=== PATIENT | female | born 1980 ===

== ENCOUNTER → 2020-01-27 13:37 | Outpatient (BNVA) | payer MEDICAID, SELFPAY | PROVIDERS: PCP Nurse Practitioner Family; Visit Provider Surgery Vascular Surgery | DX: R60.9 Edema, unspecified (principal) | CPT/HCPCS: 99213 ==

== ENCOUNTER 2020-03-10 09:56 | Outpatient (REF) | payer MEDICAID, SELFPAY ==
--- NOTE | 2020-03-10 | US_ITS ---
EXAMINATION: US ABDOMEN COMPLETE CLINICAL INFORMATION: Other specified diseases of the liver. COMPARISON: CT abdomen 08/12/2008 TECHNIQUE: Real-time imaging of the abdominal viscera. FINDINGS: PANCREAS: The pancreas is homogeneous in echotexture and appears normal size. ABDOMINAL AORTA: The proximal, mid, and distal segments are normal in caliber. INFERIOR VENA CAVA: Visualized portions are normal. LIVER: The liver is normal in size. The liver contour is normal. Parenchymal echogenicity is normal. There are 3 echogenic lesions. 1. Left hepatic lobe lesion measures 0.9 x 0.9 x 1.0 cm. 2. Right hepatic lobe lesion measures 1.0 x 0.7 x 1.0 cm. 3. Right hepatic lobe lesion measures 1.0 x 0.8 x 0.9 cm. There is no intrahepatic biliary duct dilatation seen. GALLBLADDER: Normal. The gallbladder is physiologically distended without evidence of stones, sludge, polyps, wall thickening or pericholecystic fluid. COMMON BILE DUCT: Normal in caliber measuring 0.4 cm in diameter. RIGHT KIDNEY: Normal. No hydronephrosis. No renal calculi or focal parenchymal lesions. The kidney measures 10.9 cm in maximum dimension. LEFT KIDNEY: Normal. No hydronephrosis. No renal calculi or focal parenchymal lesions. The kidney measures 10.7 cm in maximum dimension. SPLEEN: Normal. The spleen measures 9.9 cm in maximum dimension. FREE FLUID: None. US/US abdomen complete IMPRESSION: Three echogenic liver lesions most likely hemangioma. The rest of the abdominal ultrasound is unremarkable.
[2020-03-10 11:38] LABS: MANUAL DIFF FLAG NO
[2020-03-10 11:46] LABS: Basophils Percent Auto 0.4 % (0-2); Eosinophils Absolute Auto 0.1 X10*3/uL (0.0-0.4); Hematocrit 44.1 % (37-47); Hemoglobin 14.3 g/dl (12.0-16.0); Imm Gran Abs Auto 0.03 X10*3/uL (0.00-0.03); Imm Gran Pct Auto 0.4 % (0.0-0.4); Lymphocytes Absolute Auto 2.4 X10*3/uL (1.2-4.9); Lymphocytes Percent Auto 33.9 % (20-40); Mean Corpuscular HGB Conc 32.4 g/dl (31.0-35.0); Mean Corpuscular Hemoglobin 30.9 pg (27.0-33.0); Mean Corpuscular Volume 95.2 fL (80-98); Mean Platelet Volume 10.2 fL (9.4-12.3); Monocytes Absolute Auto 0.6 X10*3/uL (0.1-1.2); Monocytes Percent Auto 8.7 % (2-11); Neutrophils Absolute Auto 3.8 X10*3/uL (2.0-8.3); Neutrophils Percent Auto 54.6 % (45-73); Platelet Count 269 X10*3/uL (160-400); Red Blood Count 4.63 X10*6/uL (4.20-5.50); Red Cell Distribution Width 12.7 % (11.0-16.0)
[2020-03-10 12:18] LABS: Alanine Aminotransferase 21 U/L (0-31); Albumin Level 3.8 g/dL (3.5-5.0); Alkaline Phosphatase 54 U/L (39-117); Anion Gap 10 (12-20); Aspartate Amino Transferase 13 U/L (5-31); Bilirubin Total 0.3 mg/dL (0.0-1.0); Blood Urea Nitrogen 11 mg/dL (9-16); C Reactive Protein 0.05 mg/dL (< or = 0.50); Calcium 8.9 mg/dL (8.4-10.2); Carbon Dioxide 27 mmol/L (22-29); Chloride 105 mmol/L (96-108); Estimated Glomerular Filt Rate > 60; Glucose Random 90 mg/dL (60-115); Potassium 4.4 mmol/l (3.3-5.1); Sodium 138 mmol/L (135-145); Total Protein 6.6 g/dL (6.5-8.0)
[2020-03-10 12:40] LABS: Erythrocyte Sedimentation Rate 3 MM/HR (0-20)
[2020-03-12 12:56] LABS: Antibody to SS-A Antigen <1.0 NEG AI (<1.0 NEG); Antibody to SS-B Antigen <1.0 NEG AI (<1.0 NEG)
== END 2020-03-10 09:57 | disposition home or self-care (01) ==
LOC: HO.US 09:56
PROVIDERS: Student in an Organized Health Care Education/Training Program; Visit Provider Registered Nurse
DX: R60.9 Edema, unspecified (principal); K76.89 Other specified diseases of liver
CPT/HCPCS: 36415; 76700; 80053; 85025; 85652; 86140; 86235

== ENCOUNTER → 2020-03-18 15:37 | Outpatient (BNVA) | payer MEDICAID, SELFPAY | PROVIDERS: PCP Registered Nurse; Referring Provider Nurse Practitioner Family; Visit Provider Anesthesiology | DX: M47.812 Spondylosis without myelopathy or radiculopathy, cervical region (principal); M25.519 Pain in unspecified shoulder; N62 Hypertrophy of breast | CPT/HCPCS: 99202 ==

== ENCOUNTER 2020-03-31 13:02 | Outpatient (REF) | payer MEDICAID, SELFPAY ==
--- NOTE | 2020-03-31 13:06 | MR_ITS ---
EXAMINATION: MR CERVICAL SPINE WITHOUT CONTRAST CLINICAL INFORMATION: Spondylosis without myelopathy or radiculopathy. COMPARISON: Cervical spine radiographs 05/20/2014. TECHNIQUE: MRI of the cervical spine was obtained using routine sequences without contrast. FINDINGS: Alignment is normal. Vertebral body heights are preserved. No acute bone marrow signal changes. There is/loss of intervertebral disc height and T2 signal intensity at C5-C6. Disc desiccation is demonstrated at multiple additional levels. There is no cord compression or abnormal intramedullary signal changes. The cervicomedullary junction is normal. Limited visualization of intracranial compartment reveals no abnormal finding. The occipital condyles and lateral C1 masses are intact. 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 C1-C2 articular facets are unremarkable. At C2-C3 the annular contour is normal. No canal or neuroforaminal compromise. At C3-C4 there is a slightly bulging disc. No canal stenosis. No mass effect on the traversing or foraminal nerve root. At C4-C5 the annular contour is normal. No canal or neuroforaminal compromise. At C5-C6 there is a diffusely bulging disc causing flattening of the ventral thecal sac. No canal stenosis. No mass effect on the traversing or foraminal nerve roots. At C6-C7 is annular contour is normal. No canal or neuroforaminal compromise. At C7-T1 the annular contour is normal. No canal or neuroforaminal compromise. Visualized soft tissues of the neck are unremarkable. MR/MR cervical spine wo con IMPRESSION: There is disc degeneration at levels of C3-C4 and C5-C6. No canal or neuroforaminal compromise. No cord compression or abnormal intramedullary signal changes.
== END 2020-03-31 13:03 | disposition home or self-care (01) ==
LOC: HO.MRI 13:02
PROVIDERS: Visit Provider Anesthesiology
DX: M47.812 Spondylosis without myelopathy or radiculopathy, cervical region (principal)
CPT/HCPCS: 72141

== ENCOUNTER → 2020-09-29 13:23 | Outpatient (BNVA) | payer MEDICAID, SELFPAY | PROVIDERS: PCP Registered Nurse; Visit Provider Student in an Organized Health Care Education/Training Program | DX: M47.812 Spondylosis without myelopathy or radiculopathy, cervical region (principal) | CPT/HCPCS: 99212 ==

== ENCOUNTER → 2020-11-09 08:22 | Outpatient (BNVA) | payer MEDICAID, SELFPAY | PROVIDERS: PCP Registered Nurse; Visit Provider Nurse Practitioner ==

== ENCOUNTER 2020-11-15 11:02 | Outpatient (REF) | payer MEDICAID, SELFPAY ==
[2020-11-15 11:37] LABS: MANUAL DIFF FLAG NO
[2020-11-15 11:51] LABS: Basophils Percent Auto 0.4 % (0-2); Eosinophils Absolute Auto 0.1 X10*3/uL (0.0-0.4); Eosinophils Percent Auto 0.9 % (0-4); Imm Gran Abs Auto 0.02 X10*3/uL (0.00-0.03); Imm Gran Pct Auto 0.3 % (0.0-0.4); Lymphocytes Absolute Auto 2.1 X10*3/uL (1.2-4.9); Lymphocytes Percent Auto 27.7 % (20-40); Mean Corpuscular HGB Conc 32.6 g/dl (31.0-35.0); Mean Corpuscular Volume 95.3 fL (80-98); Mean Platelet Volume 10.4 fL (9.4-12.3); Monocytes Absolute Auto 0.6 X10*3/uL (0.1-1.2); Monocytes Percent Auto 8.3 % (2-11); Neutrophils Absolute Auto 4.8 X10*3/uL (2.0-8.3); Neutrophils Percent Auto 62.4 % (45-73); Platelet Count 264 X10*3/uL (160-400); Red Blood Count 4.51 X10*6/uL (4.20-5.50); Red Cell Distribution Width 12.6 % (11.0-16.0); White Blood Count 7.7 X10*3/uL (4.8-10.8)
[2020-11-15 12:49] LABS: Ferritin 108 ng/mL (10-250); TSH reflex Free T4 1.39 uIU/mL (0.32-4.0)
[2020-11-15 13:12] LABS: Alanine Aminotransferase 14 U/L (0-31); Albumin Level 4.1 g/dL (3.5-5.0); Alkaline Phosphatase 55 U/L (39-117); Anion Gap 16 (12-20); Aspartate Amino Transferase 13 U/L (5-31); Bilirubin Total 0.5 mg/dL (0.0-1.0); Blood Urea Nitrogen 14 mg/dL (9-16); Calcium 9.4 mg/dL (8.4-10.2); Carbon Dioxide 22 mmol/L (22-29); Chloride 104 mmol/L (96-108); Estimated Glomerular Filt Rate > 60; Glucose Random 108 mg/dL (60-115); Potassium 4.5 mmol/L (3.3-5.1); Sodium 137 mmol/L (135-145)
== END 2020-11-15 11:03 | disposition home or self-care (01) ==
LOC: HO.LAB 11:02
PROVIDERS: Visit Provider Nurse Practitioner
DX: K76.89 Other specified diseases of liver (principal)
CPT/HCPCS: 36415; 80053; 82728; 84443; 85025

== ENCOUNTER → 2020-11-30 09:20 | Outpatient (BNVA) | payer MEDICAID, SELFPAY | PROVIDERS: PCP Registered Nurse; Visit Provider Nurse Practitioner ==

== ENCOUNTER 2020-12-28 12:41 | Outpatient (REF) | payer MEDICAID, SELFPAY | END 2020-12-28 12:42 | disposition home or self-care (01) | LOC: HO.LAB 12:41 | PROVIDERS: Visit Provider Internal Medicine | DX: Z20.822 Contact with and (suspected) exposure to COVID-19 (principal) | CPT/HCPCS: C9803; U0003; U0005 ==

== ENCOUNTER → 2021-01-14 08:26 | Outpatient (BNVA) | payer MEDICAID, SELFPAY | PROVIDERS: PCP Registered Nurse; Visit Provider Nurse Practitioner ==

== ENCOUNTER 2021-04-11 10:04 | Outpatient (REF) | payer MEDICAID, SELFPAY ==
--- NOTE | ~2021-04-11 | US_ITS ---
EXAMINATION: US ABDOMEN COMPLETE CLINICAL INFORMATION: Gastroesophageal reflux disease without esophagitis. COMPARISON: MRI abdomen 03/25/2020. Ultrasound abdomen complete 03/10/2020. CT abdomen 08/12/2008. TECHNIQUE: Real-time imaging of the abdominal viscera. FINDINGS: PANCREAS: Normal. ABDOMINAL AORTA: The proximal, mid, and distal segments are normal in caliber. INFERIOR VENA CAVA: Visualized portions are normal. LIVER: The liver is normal in size. The liver contour is normal. Parenchymal echogenicity is normal. 3 hyperechoic masses are seen within the liver, not significantly changed since the comparison study. The largest is in the left lobe measuring 0.9 x 1.0 x 1.0 cm, previously 1.0 x 0.7 x 1.0 cm. No abnormal vascularity. There is no intrahepatic biliary duct dilatation seen. GALLBLADDER: Normal. The gallbladder is physiologically distended without evidence of stones, sludge, polyps, wall thickening or pericholecystic fluid. COMMON BILE DUCT: Normal in caliber measuring 0.3 cm in diameter. RIGHT KIDNEY: Mildly prominent calyces within the lower pole of doubtful clinical significance. No dru hydronephrosis. No renal calculi or focal parenchymal lesions. The kidney measures 12.1 cm in maximum dimension. LEFT KIDNEY: Normal. No hydronephrosis. No renal calculi or focal parenchymal lesions. The kidney measures 11.2 cm in maximum dimension. SPLEEN: Normal. The spleen measures 10.8 cm in maximum dimension. FREE FLUID: None. US/US abdomen complete IMPRESSION: Hepatic hemangiomas are redemonstrated without significant interval change.
== END 2021-04-11 10:05 | disposition home or self-care (01) ==
LOC: HO.HMGCX 10:04
PROVIDERS: Visit Provider Nurse Practitioner
DX: K21.9 Gastro-esophageal reflux disease without esophagitis (principal)
CPT/HCPCS: 76700

== ENCOUNTER → 2021-08-30 09:24 | Outpatient (BNVA) | payer MEDICAID, SELFPAY | PROVIDERS: PCP Registered Nurse; Visit Provider Nurse Practitioner Family | DX: M47.812 Spondylosis without myelopathy or radiculopathy, cervical region (principal) | CPT/HCPCS: 99212 ==

== ENCOUNTER → 2021-09-15 10:59 | Outpatient (BNVA) | payer MEDICAID, SELFPAY | PROVIDERS: PCP Registered Nurse; Referring Provider Registered Nurse; Visit Provider Nurse Practitioner | DX: K21.9 Gastro-esophageal reflux disease without esophagitis (principal); K59.04 Chronic idiopathic constipation; K59.9 Functional intestinal disorder, unspecified; R10.9 Unspecified abdominal pain; R14.0 Abdominal distension (gaseous) | CPT/HCPCS: 99212 ==

== ENCOUNTER → 2021-10-13 10:57 | Outpatient (BNVA) | payer MEDICAID, SELFPAY | PROVIDERS: PCP Registered Nurse; Visit Provider Nurse Practitioner | DX: K59.04 Chronic idiopathic constipation (principal); K59.9 Functional intestinal disorder, unspecified; R10.9 Unspecified abdominal pain; K21.9 Gastro-esophageal reflux disease without esophagitis; R60.0 Localized edema; Z79.899 Other long term (current) drug therapy | CPT/HCPCS: 99212 ==

== ENCOUNTER 2021-10-19 14:28 | Outpatient (REF) | payer MEDICAID, SELFPAY ==
--- NOTE | ~2021-10-19 | XR_ITS ---
EXAMINATION: XR CERVICAL SPINE CLINICAL INFORMATION: Cervical radiculopathy COMPARISON: Previous x-ray May 2014 and MRI March 2020 TECHNIQUE: 6 views of the cervical spine, inclusive of bilateral oblique views, were obtained. FINDINGS: Bone alignment is normal. No fracture or dislocation is seen. There is degenerative spondylosis and mild disc space narrowing at C5-C6. Neural foramen are patent. Prevertebral soft tissues are normal. XR/XR cervical spine min 6V IMPRESSION: Degenerative changes at C5-C6.
[2021-10-19 15:28] LABS: C Reactive Protein 0.08 mg/dL (< or = 0.50); Rheumatoid Factor < 15.0 IU/mL (<15.0)
[2021-10-19 15:42] LABS: Erythrocyte Sedimentation Rate 2 MM/HR (0-20)
[2021-10-19 17:47] LABS: Thyroid Stimulating Hormone 1.85 uIU/mL (0.32-4.0)
== END 2021-10-19 14:29 | disposition home or self-care (01) ==
LOC: HO.XRAY 14:28
PROVIDERS: PCP Registered Nurse; Visit Provider Psychiatry & Neurology Neurology
DX: H91.90 Unspecified hearing loss, unspecified ear (principal); M79.7 Fibromyalgia; M54.12 Radiculopathy, cervical region
CPT/HCPCS: 36415; 72052; 84443; 84550; 85652; 86140; 86431

== ENCOUNTER → 2021-11-10 08:56 | Outpatient (BNVA) | payer MEDICAID, SELFPAY | PROVIDERS: Visit Provider Surgery Vascular Surgery | DX: G54.0 Brachial plexus disorders (principal) | CPT/HCPCS: 99212 ==

== ENCOUNTER 2021-12-29 10:11 | Outpatient (REF) | payer MEDICAID, SELFPAY ==
--- NOTE | ~2021-12-29 | XR_ITS ---
EXAMINATION: XR CHEST CLINICAL INFORMATION: Brachial plexus disorders COMPARISON: None TECHNIQUE: Frontal view of the chest was obtained. FINDINGS: The lungs are well-expanded and clear. The heart size and pulmonary vascularity is normal. There is solitary surgical milly in the right and left lower lobe probably in the breast region. No gross bony abnormality. XR/XR chest 1V IMPRESSION: Unremarkable chest examination.
== END 2021-12-29 10:12 | disposition home or self-care (01) ==
LOC: HO.XRAY 10:11
PROVIDERS: PCP Registered Nurse; Visit Provider Surgery Vascular Surgery
DX: G45.0 Vertebro-basilar artery syndrome (principal)
CPT/HCPCS: 71045

== ENCOUNTER 2022-01-24 10:20 | Outpatient (REF) | payer MEDICAID, SELFPAY ==
--- NOTE | ~2022-01-24 | MR_ITS ---
EXAMINATION: MR CERVICAL SPINE WITHOUT CONTRAST CLINICAL INFORMATION: 41-year-old with self-reported neck pain radiating to the upper extremities, right more than left. Radiculopathy, Chiari type I malformation. COMPARISON: 03/31/2020 MRI TECHNIQUE: MRI of the cervical spine was obtained using routine sequences without contrast. FINDINGS: Alignment: Normal. No spondylolisthesis. Craniocervical Junction/C1-C2 Articulations: Slight retrolisthesis of the left C1-C2 facet joint, stable in appearance. Atlantooccipital joints are intact and aligned. Visualized Intracranial Structures: The cerebellar tonsils project approximately 5 mm below the level of the plane of the foramen magnum. Given the appearance, the findings are more consistent with cerebellar tonsillar ectopia rather than a Chiari I malformation as there is no significant tonsillar pegging or cervicomedullary kinking. Otherwise unremarkable. Vertebral Bodies: Vertebral body heights are well maintained, stable in appearance. Disc Spaces and Endplates: There is alnm-or-unnpihaw disc volume loss at C5-C6, with disc desiccation, stable in appearance. Minor anterior marginal endplate spurring is noted at this level, stable in appearance. The remaining cervical intervertebral discs demonstrate normal height and signal with no significant spondylosis. Endplates appear intact. Bone Marrow: No significant marrow-replacing process or bone marrow edema. C2-C3: No disc herniation, DJD, canal or neural foraminal stenosis, stable in appearance. C3-C4: Small central disc protrusion with minimal indentation of the ventral thecal sac, stable in appearance, without cord impingement or canal stenosis. Minor facet spurring and left-sided uncinate process spurring, stable in appearance, with mild left-sided neural foraminal narrowing, unchanged. C4-C5: Normal disc contour. No disc herniation or canal stenosis. No significant DJD or neural foraminal stenosis. C5-C6: Broad-based disc protrusion noted, slightly asymmetric to the right, with [id number] flattening of the ventral dural sac without cord impingement, similar to previous exam, without significant canal stenosis. Mild uncovertebral spurring is noted bilaterally with mild right-sided neural foraminal stenosis, stable in appearance. C6-C7: No disc herniation or canal stenosis. Mild uncovertebral spurring noted on the left, stable in appearance, with minor left-sided foraminal narrowing, unchanged. C7-T1: No disc herniation or canal stenosis. No significant DJD or neural foraminal stenosis, stable in appearance. Spinal Cord: The cervical and visualized upper thoracic spinal cord is normal in morphology, caliber and signal intensity throughout. No interval change. Extracranial Soft Tissues: The visualized extracranial head/neck soft tissues are unremarkable within the limitations of the study. MR/MR cervical spine wo con IMPRESSION: 1. No convincing evidence for Chiari I malformation. 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 2. Disc protrusions at C3-C4 and C5-C6, similar to the previous exam, with discogenic degenerative changes at C5-C6, stable in appearance, without cord impingement or canal stenosis. 3. Minor degrees of multilevel DJD with mild right-sided neural foraminal stenosis at C5-C6, minimal left-sided foraminal stenosis at C6-C7 and mild left-sided neural foraminal stenosis at C3-C4 without neural impingement.
== END 2022-01-24 10:21 | disposition home or self-care (01) ==
LOC: HO.MRI 10:20
PROVIDERS: Visit Provider Psychiatry & Neurology Neurology
DX: M54.12 Radiculopathy, cervical region (principal); G93.5 Compression of brain
CPT/HCPCS: 72141

== ENCOUNTER → 2022-02-02 13:58 | Outpatient (BNVA) | payer MEDICAID, SELFPAY | PROVIDERS: PCP Registered Nurse; Visit Provider Surgery Vascular Surgery | DX: G54.0 Brachial plexus disorders (principal); N62 Hypertrophy of breast | CPT/HCPCS: 99212 ==

== ENCOUNTER → 2022-02-03 09:56 | Outpatient (BNVA) | payer MEDICAID, SELFPAY | PROVIDERS: PCP Registered Nurse; Referring Provider Registered Nurse; Visit Provider Nurse Practitioner | DX: K59.9 Functional intestinal disorder, unspecified (principal); R10.9 Unspecified abdominal pain; K21.9 Gastro-esophageal reflux disease without esophagitis; K59.04 Chronic idiopathic constipation; R14.0 Abdominal distension (gaseous); R60.0 Localized edema | CPT/HCPCS: 99212 ==

== ENCOUNTER 2022-03-16 09:48 | Outpatient (REF) | payer MEDICAID, SELFPAY | END 2022-03-16 09:49 | disposition home or self-care (01) | LOC: HO.LAB 09:48 | PROVIDERS: PCP Registered Nurse; Visit Provider Urology | DX: R39.15 Urgency of urination (principal); N39.41 Urge incontinence; R30.0 Dysuria | CPT/HCPCS: 51701; 51798; 87086; 99202 ==

== ENCOUNTER 2022-05-19 11:14 | Outpatient (REF) | payer MEDICAID, SELFPAY ==
--- NOTE | ~2022-05-19 | US_ITS ---
EXAMINATION: US RETROPERITONEAL LIMITED (RENAL ONLY) CLINICAL INFORMATION: Dysuria. COMPARISON: Ultrasound abdomen complete 04/11/2021 and 03/10/2020. MRI abdomen 03/25/2020. TECHNIQUE: Real-time imaging of the kidneys. FINDINGS: RIGHT KIDNEY: 12.0 x 4.7 x 5.7 cm (SAG x AP x TRV). The kidney is normal in size, contour, and echogenicity. Renal cortical thickness is normal. No calculi or focal parenchymal lesions. There is pelviectasis, without dru hydronephrosis. LEFT KIDNEY: 10.5 x 5.8 x 5.0 cm (SAG x AP x TRV). The kidney is normal in size, contour, and echogenicity. Renal cortical thickness is normal. No calculi or focal parenchymal lesions. No hydronephrosis. US/US renal BI IMPRESSION: 1. No renal mass or calculus is seen bilaterally. 2. There is right renal pelviectasis. No dru hydronephrosis is noted bilaterally.
== END 2022-05-19 11:15 | disposition home or self-care (01) ==
LOC: HO.US 11:14
PROVIDERS: Visit Provider Urology
DX: R30.0 Dysuria (principal); R39.15 Urgency of urination
CPT/HCPCS: 76775

== ENCOUNTER → 2022-08-30 09:11 | Outpatient (BNVA) | payer MEDICAID, SELFPAY | PROVIDERS: PCP Registered Nurse; Visit Provider Nurse Practitioner Family | DX: M47.812 Spondylosis without myelopathy or radiculopathy, cervical region (principal) | CPT/HCPCS: 99212 ==

== ENCOUNTER 2022-08-30 10:24 | Outpatient (REF) | payer MEDICAID, SELFPAY ==
[2022-08-30 13:43] LABS: Alanine Aminotransferase 17 U/L (0-31); Albumin Level 4.1 g/dL (3.5-5.0); Alkaline Phosphatase 53 U/L (39-117); Anion Gap 9 (12-20); Aspartate Amino Transferase 14 U/L (5-31); Bilirubin Total 0.6 mg/dL (0.0-1.0); Blood Urea Nitrogen 12 mg/dL (9-16); Calcium 9.2 mg/dL (8.4-10.2); Carbon Dioxide 27 mmol/L (22-29); Chloride 106 mmol/L (96-108); Estimated Glomerular Filt Rate > 60; Glucose Random 93 mg/dL (60-115); Potassium 4.3 mmol/L (3.3-5.1); Sodium 138 mmol/L (135-145); Total Protein 6.9 g/dL (6.5-8.0)
== END 2022-08-30 10:25 | disposition home or self-care (01) ==
LOC: HO.10HDL 10:24
PROVIDERS: Visit Provider Nurse Practitioner Family
DX: M47.812 Spondylosis without myelopathy or radiculopathy, cervical region (principal)
CPT/HCPCS: 36415; 80053

== ENCOUNTER 2022-09-06 10:00 | Outpatient (RCR) | payer MEDICAID, SELFPAY ==
--- NOTE | 2022-07-04 12:54 | MHC.PT.EP ---
[facility] [place] Office [place] Office [place] Office [address] Dennis Mckee [address] [phone] F: [phone] F: [phone] F: [phone] F: [phone] Physical Therapy Plan of Care Date of Evaluation: Date of Surgery: Diagnosis: urgency of urination urge incontinence Assessment: 42 y/o female referred to PT with urinary urgency and urge incontinence. Of note she has had a tummy tuck surgery and a bladder suspension surgery in 2017. She will have urinary frequency needing to urinate every 30minute with running water trigger. She started taking Mrybetric which has helped. She also reports REBECCA with coughing, sneezing, lifting, and any vigorous activity that requires abdominal activation. Educated pt on pelvic floor assessment. pelvic floor anatomy and function. She provided consent for pelvic floor assessment and will assess next visit. Examination shows abdominal/glut gripping patterns in sitting/standing, decreased back and lateral rib expansion during breathing. Next visit will assess pelvic floor and hip ROM/ strength. Pt will benefit from education, diet and lifestyle education, behavior training to help with urge incontinence, REBECCA, and PFM strengthening to help with muscular endurance. The patient is an excellent candidate for skilled PT. Frequency and Duration: The patient will be seen 1x/week for 10 weeks Short Term Goals: 1. Pt to be able to correctly activate her PFM to allow improved support to bowel and bladder. 2. Pt to be able to demonstrate diaphragmatic breathing to improve pressure exchange and intra abdominal load management. 3. Pt to be educated on behavior training to help decrease urge incontinence. 4. Pt will demonstrate knack with coughing Fci Goals: 1. Pt to be able to show improved PFM contraction during functional movements such as a bridge or squat to help prevent or limit POP. 2. Pt to reduce # of episodes of REBECCA during the day by 50% to help improve quality of life and reduce pad usage. 3. Pt to be independent with her final HEP for PFM in order to help maintain gains made in therapy. Treatment Plan: Modalities to reduce pain, spasms and effusion. Manual therapy to restore motion and function. Therapeutic exercise to improve strength and flexibility. Neuromuscular re-education for posture and balance. Therapeutic activities to return to functional activities of daily living. Electronically signed by: Please sign and return to therapist. Thank you for your referral.
--- NOTE | 2022-09-06 11:00 | MHC.PT.DC ---
[facility] [place] Office [place] Office [place] Office [address] Dennis Mckee [address] [phone] F: [phone] F: [phone] F: [phone] F: [phone] Physical Therapy Discharge Report Diagnosis: urgency of urination urge incontinence Date of Surgery: Date of Evaluation: 07/04/22 Date of Discharge: 09/06/22 Treatments to Date: 7 Cancellations to Date: 0 No Shows to Date: 0 Discharge Status: Achieved Goals Improved Function Independent with HEP Discharge Summary: Reports overall feeling better and is urinating less often especially during the day. At night, she will still have urgency and is trying to defer these urges. She is compliant with HEP and trying to walk more often. We reviewed all exercises and pt with good technique and appropriate abdominal contraction - relaxation without bulging now. Pt appropriate for d/c secondary to I with HEP, I with self management, and has met goals. Electronically signed by: Iza Booth PT Please sign and return to therapist. Thank you for your referral.
== END 2022-09-06 11:00 | disposition home or self-care (01) ==
LOC: HO.PT 10:00
PROVIDERS: PCP Registered Nurse; Visit Provider Urology
DX: R39.15 Urgency of urination (principal)
CPT/HCPCS: 97110; 97112; 97140; 97161

== ENCOUNTER 2022-09-06 10:56 | Outpatient (REF) | payer MEDICAID, SELFPAY | END 2022-09-06 10:57 | disposition home or self-care (01) | LOC: HO.LAB 10:56 | PROVIDERS: PCP Registered Nurse; Visit Provider Nurse Practitioner | DX: K21.9 Gastro-esophageal reflux disease without esophagitis (principal); K59.04 Chronic idiopathic constipation; K59.9 Functional intestinal disorder, unspecified; R19.7 Diarrhea, unspecified | CPT/HCPCS: 99212 ==

== ENCOUNTER 2022-09-12 | Outpatient (REF) | payer MEDICAID, SELFPAY | END 2022-09-12 00:01 | disposition home or self-care (01) | LOC: HO.LNP | PROVIDERS: Visit Provider Nurse Practitioner | DX: R19.7 Diarrhea, unspecified (principal) | CPT/HCPCS: 87177; 87209 ==

== ENCOUNTER 2023-04-18 13:43 | Outpatient (AMB) | payer MEDICAID, SELFPAY ==
--- NOTE | 2023-04-18 14:02 | A.OFFVIS_ITS ---
Intake Vital Signs 04/18/23 14:36 Height 5 ft 3 in Weight 201 lb 0.985 oz BMI 35.6 BP 125/78 Blood Pressure Location Lt brachial Position Sitting Intake Visit Reasons: Follow up GERD Intake Note: Patient presents to in office 6 months follow up visit for IBS, and GERD. CC: Patient reports that every time she has milk products, banana, and eggs she gets acid reflux and epigastric pain. She c/o abdominal bloating. Per patient she had Covid two weeks ago and was experiencing diarrhea, abdominal pain, heartburn, nausea,and a sore throat. Patient states she was found to have like a polyp in her throat . Patient would like to discuss EGD and colonoscopy. Emergency Medicine Physician Required: No Accompanied by: Self / Same As Patient Allergies divalproex sodium [From DEPAKOTE] Allergy (Unknown, Verified 04/18/23 14:44) FACIAL SWELLING, swelling of face pravastatin [PRAVASTATIN] Allergy (Unknown, Verified 04/18/23 14:44) MUSCLE ACHES, body aches 14-Count Warmer Allergy (Unknown, Uncoded 04/18/23 14:44) Unknown Pt states no food allergies Allergy (Unknown, Uncoded 02/14/23 13:37) Unkown HPI Follow up GERD HPI Details Assessment & Plan (1) GERD (gastroesophageal reflux diseas e): Code(s): K21.9 - Gastro-esophageal reflux disease without esophagitis Plan: SCOTTISH #Declines She continues to do well on her GI regimen. She continues using senna qhs and the LInzess in the am. With the simethicone and low dose Reglan 5 mg 3 times a day She had an episode of regrug that came up through her nose when bending over at work. We will wait and watch this, it could have been a one time thing. If this becomes more frequent we might want to consider studies for gastroparesis. She says she had parasites when she was a child and wants to be tested for these to see if this is causing any of her GI sx. Her other sx r/t possible chiari malformation continues and she will be going to [facility] to get a second opinion about this. ROV 6 mos. (2) Chronic idiopathic constipation: Code(s): K59.04 - Chronic idiopathic constipation (3) Small bowel motility disorder: Code(s): K59.9 - Functional intestinal disorder, unspecified (4) Diarrhea: Code(s): R19.7 - Diarrhea, unspecified Orders: Orders Ova and Parasite Today R19.7 - Diarrhea, unspecified Medications: Refilled dicyclomine 20 mg PO QID 30 d ays 120 tabs 6RF R10.9 - Unspecifie d abdominal pain linaclotide (Linze ss) 145 mcg PO QAM 30 caps 6RF K59.04 - Chronic i diopathic constipa tion, R14.0 - Abdo kiana distension ( gaseous) metoclopramide HCl (Reglan) PROVI EVANGELINA AWARE OR POSSI BLE INTERACTION WI TH SEROQUEL AND MO NITORING 5 mg PO .tidac 90 tabs 6RF K59.9 - Functional intestinal disord er, unspecified omeprazole 20 mg PO BID 30 d ays 60 caps 6RF K21.9 - Gastro-eso phageal reflux dis ease without esoph agitis sennosides (senna) 17.2 mg (2 x 8.6 m g) PO BEDTIME 90 d ays 180 caps 6RF c onstipation K59.04 - Chronic i diopathic constipa tion simethicone aft er meals 180 mg PO .TIDAC 30 days 90 caps 6R F K59.04 - Chronic i diopathic constipa tion, R14.0 - Abdo kiana distension ( gaseous) LABS: 09/13/22-[address]: ORDERED: Ova and Parasit Test Result Flag Refere nce Si te Ova Trichrome SEE NOTE QU M OVA AND PARASITES, CONC A ND PERM SMEAR Micro Number: [id number] Test Status: Final Specimen Sour e: Stool Specimen Quality : Adequate CONCENTRATION 1 : No ova or para sites seen TRICHROME 1: No ova or rosana ites seen CORRESPONDENCE On 03/30/23 @ 14:36 Jolynn Watt Wrote To Lopez,July (2) spoke to patient, she is requesting an appt with July- recently was seen by ENT for polyp in her throat. She would like to f/u with July , she is concerned she may also have polyps in her Esophageal and colon. I reached out to ENT -[phone] and requested her last office visit. TODAY'S VISIT SCOTTISH #declines She is having more GERD and this seems to be worse with higher fiber foods like oatmeal, broccoli, watermelon etc. The only change is that she had a bad case of COVID about 5 weeks ago and this caused a lot of diarrhea, N/V as well. She also has a large lump inside of her mouth/neck. She has a hx of tonsil stones, and her ENT suggested a tonsillectomy but she is reluctant to do this. She will be having a CT scan to look in to this. She wants and EGD/colonoscopy she had these in the remote past and had some erosive esophagitis 2011 and before. Since she will be 43 I will orde3r this. Will change from from omeprazole 20 mg twice a day to pantoprazole 40 mg and if she wants for now she can take 20 mg of omeprazole at night (however if we continue this way we likely will have to give her Pepcid at night because of insurance limitations). I am also going to increase her Reglan to 10 mg 3 times a day to see if gastric stasis is part of the problem relative to COVID inflammation. Return office visit in 6 weeks to evaluate her response. [facility] Medical History Rosacea Urge urinary incontinence Macromastia Shoulder pain Spondylosis of cervical spine Surgical History Status post laser ablation of incompetent vein History of bladder suspension procedure Family History Mother Colon polyps Social History Patient Tobacco Use Status: Never used Tobacco e-Cigarette/Vaping Use: Never Used Review of Systems Const Denies fatigue, Denies fever(s), Denies night sweats, Denies poor appetite and Denies weight loss ENT Reports Normal hearing present, Denies dental pain, Denies dysphagia, Denies hearing loss, Denies mouth pain, Denies odynophagia, Reports throat swelling, Denies tongue swelling and Reports other (Dentition adequate) Card Reports no additional complaints Resp Reports no additional complaints GI Denies abdominal pain, Reports belching, Denies melena, Denies bloating, Denies hematochezia, Reports constipation, Denies GI cramping, Denies dysphagia, Denies excessive flatus, Reports early satiety, Reports heartburn, Denies diarrhea, Denies nausea, Denies odynophagia, Denies vomiting and Denies hematemesis Skin/Breast Denies pruritus, Denies lesions, Denies rash and Denies jaundice Neuro Reports Normal hearing present and Denies Abnormal speech present Endo Denies fatigue Aller/Immun Reports throat swelling and Denies tongue swelling Physical Exam Vital Signs: Last Vital Signs BP 125/78 04/18/23 14:36 BMI result Body Mass Index 35.6 Const General: cooperative, no acute distress, well developed and well groomed Nutritional Appearance: well nourished and obese Orientation/consciousness: oriented to person, oriented to place and oriented to time Limitations: No language barrier HEENT Head: Yes normocephalic and Yes atraumatic Eyes General: appearance normal, both eyes and all related structures Pupils: Equal, round and reactive pupils present Neck Neck: Yes normal visual inspection and Yes no lymphadenopathy Thyroid: Thyroid normal Resp Effort & Inspection: normal respiratory effort and able to speak in complete sentences Auscultation: clear to auscultation bilaterally Cardio Rate: regular rate Rhythm: regular rhythm Heart sounds: Normal, physiologic split S2 sound present Peripheral pulses: radial pulses present and posterior tibial pulses present GI Inspection: No distended, Yes Abdominal panniculus present and Yes obesity Palpation (GI): Soft to palpation, nontender, no guarding, not rigid and No hepatosplenomegaly present Percussion: Yes normal to percussion Auscultation: normal bowel sounds Rectal Exam - Female: deferred Skin General skin exam: no rashes or lesions noted, turgor normal, skin not dry, no jaundice, No spider nevi and no striae Rashes: no rashes Nails: normal Neuro General: oriented to person, oriented to place and oriented to time Cranial nerves: Yes Equal, round and reactive pupils present and Yes Normal hearing present Speech: No Abnormal speech present Extrem General: Yes normal to inspection, No clubbing, No cyanosis and No edema Psych Appearance: grossly normal and well kempt Mental Status: mental status grossly normal Speech and movement: Normal speech and movement present Affect: normal affect Attitude: cooperative Thought process: Normal thought process present and not confabulating Thought content: Normal thought content present Insight: Limited insight present (Psych) Judgement: Limited judgement present (Psych) Assessment & Plan Assessment & Plan (1) Small bowel motility disorder: Code(s): K59.9 - Functional intestinal disorder, unspecified (2) GERD (gastroesophageal reflux disease): Code(s): K21.9 - Gastro-esophageal reflux disease without esophagitis (3) Chronic idiopathic constipation: Code(s): K59.04 - Chronic idiopathic constipation (4) Family history of polyps in the colon: Comment: mother Code(s): Z83.719 - Family history of colon polyps, unspecified Plan SCOTTISH #declines She is having more GERD and this seems to be worse with higher fiber foods like oatmeal, broccoli, watermelon etc. The only change is that she had a bad case of COVID about 5 weeks ago and this caused a lot of diarrhea, N/V as well. She also has a large lump inside of her mouth/neck. She has a hx of tonsil stones, and her ENT suggested a tonsillectomy but she is reluctant to do this. She will be having a CT scan to look in to this. She wants and EGD/colonoscopy she had these in the remote past and had some erosive esophagitis 2011 and before. Since she will be 43 I will orde3r this. Will change from from omeprazole 20 mg twice a day to pantoprazole 40 mg and if she wants for now she can take 20 mg of omeprazole at night (however if we continue this way we likely will have to give her Pepcid at night because of insurance limitations). I am also going to increase her Reglan to 10 mg 3 times a day to see if gastric stasis is part of the problem relative to COVID inflammation. Return office visit in 6 weeks to evaluate her response. Orders: Orders EGD/[place] Combo - GI Use Only 04/18/23 Z83.719 - Family history of colon polyps, unspecified Medications: New metoclopramide HCl (Reglan) 10 mg PO TID 90 tabs 6RF K59.9 - Functional intestinal disorder, unspecified pantoprazole (Protonix) 40 mg PO DAILY 30 tabs 3RF 30 days bisacodyl (Dulcolax (bisacodyl)) 10 mg (2 x 5 mg) PO BEDTIME 4 tabs 0RF 2 days peg 3350-electrolytes 236-22.74-6.74 -5.86 gram (Golytely) until fecal effluent is clear; do not exceed a total volume of 2,000 mL 240 mL PO Q10M 4,000 mL 0RF 1 day Z12.11 - Encounter for screening for malignant neoplasm of colon Refilled dicyclomine 20 mg PO QID 120 tabs 6RF 30 days R10.9 - Unspecified abdominal pain sennosides (senna) 17.2 mg (2 x 8.6 mg) PO BEDTIME 180 caps 6RF constipation 90 days K59.04 - Chronic idiopathic constipation simethicone after meals 180 mg PO .TIDAC 90 caps 6RF 30 days R14.0 - Abdominal distension (gaseous), K59.04 - Chronic idiopathic constipation Discontinued omeprazole Discontinued Reason: Doctor's Order 20 mg PO BID 180 caps 3RF K21.9 - Gastro-esophageal reflux disease without esophagitis On Hold metoclopramide HCl (Reglan) Hold Comment: Doctor's Order 5 mg PO .tidac 90 tabs 6RF K59.9 - Functional intestinal disorder, unspecified Coding Level of Care Code Est Pt Level 3 (63324) Diagnoses Small bowel motility disorder K59.9 GERD (gastroesophageal reflux disease) K21.9 Chronic idiopathic constipation K59.04 Family history of polyps in the colon Z83.719
[2023-04-18 14:36] VITALS: BP 125/78; BMI 35.6
== END 2023-04-18 16:00 | disposition home or self-care (01) ==
PROVIDERS: PCP Registered Nurse; Visit Provider Nurse Practitioner
DX: K59.9 Functional intestinal disorder, unspecified (principal); K21.9 Gastro-esophageal reflux disease without esophagitis; K59.04 Chronic idiopathic constipation; Z83.719 Family history of colon polyps, unspecified
CPT/HCPCS: 99213

== ENCOUNTER → 2023-04-18 13:43 | Outpatient (BNVA) | payer MEDICAID, SELFPAY | PROVIDERS: PCP Registered Nurse; Visit Provider Nurse Practitioner | DX: K59.9 Functional intestinal disorder, unspecified (principal); K21.9 Gastro-esophageal reflux disease without esophagitis; K59.04 Chronic idiopathic constipation; Z83.719 Family history of colon polyps, unspecified | CPT/HCPCS: 99212 ==

== ENCOUNTER 2023-05-30 10:16 | Outpatient (AMB) | payer MEDICAID, SELFPAY ==
--- NOTE | 2023-05-30 10:17 | A.OFFVIS_ITS ---
Intake Vital Signs 05/30/23 10:18 Height 5 ft 3 in Weight 202 lb BMI 35.8 BP 125/57 L Blood Pressure Location Rt brachial Position Sitting Pulse 73 Intake Visit Reasons: 6 week follow up Intake Note: Patient presents to in office visit today in follow up of GERD. CC: Patient states she continues to have heartburn with most meals and also c/o constipation. 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 Accompanied by: Self / Same As Patient Allergies divalproex sodium [From DEPAKOTE] Allergy (Unknown, Verified 05/30/23 10:25) FACIAL SWELLING, swelling of face pravastatin [PRAVASTATIN] Allergy (Unknown, Verified 05/30/23 10:25) MUSCLE ACHES, body aches 14-Count Warmer Allergy (Unknown, Uncoded 04/18/23 14:44) Unknown Pt states no food allergies Allergy (Unknown, Uncoded 02/14/23 13:37) Unkown HPI 6 week follow up HPI Details Assessment & Plan (1) Small bowel motility disorder: Code(s): K59.9 - Functional intestinal disorder, unspecified (2) GERD (gastroesophageal reflux diseas e): Code(s): K21.9 - Gastro-esophageal reflux disease without esophagitis (3) Chronic idiopathic constipation: Code(s): K59.04 - Chronic idiopathic constipation (4) Family history of polyps in the colo n: Comment: mother Code(s): Z83.719 - Family history of colon polyps, unspecified Plan TAJIK #declines She is having more GERD and this seems to be worse with higher fiber foods like oatmeal, broccoli, watermelon etc. The only change is that she had a bad case of COVID about 5 weeks ago and this caused a lot of diarrhea, N/V as well. She also has a large lump inside of her mouth/neck. She has a hx of tonsil stones, and her ENT suggested a tonsillectomy but she is reluctant to do this. She will be having a CT scan to look in to this. She wants and EGD/colonoscopy she had these in the remote past and had some erosive esophagitis 2011 and before. Since she will be 43 I will order this. Will change from from omeprazole 20 mg twice a day to pantoprazole 40 mg and if she wants for now she can take 20 mg of omeprazole at night (however if we continue this way we likely will have to give her Pepcid at night because of insurance limitations). I am also going to increase her Reglan to 10 mg 3 times a day to see if gastric stasis is part of the problem relative to COVID inflammation. Return office visit in 6 weeks to evaluate her response. Orders: Orders EGD/[place] Combo - G I Use Only 04/18/23 Z83.719 - Family h istory of colon po lyps, unspecified Medications: New metoclopramide HCl (Reglan) 10 mg PO TID 90 ta bs 6RF K59.9 - Functional intestinal disord er, unspecified pantoprazole (Prot abdirahman) 40 mg PO DAILY 30 tabs 3RF 30 days bisacodyl (Dulcola x (bisacodyl)) 10 mg (2 x 5 mg) P O BEDTIME 4 tabs 0 RF 2 days peg 3350-electroly miguel 236-22.74-6.74 -5.86 gram (Golyt david) until feca l effluent is kevin r; do not exceed a total volume of 2 ,000 mL 240 mL PO Q10M 4,0 00 mL 0RF 1 day Z12.11 - Encounter for screening for malignant neoplas m of colon Refilled dicyclomine 20 mg PO QID 120 t abs 6RF 30 days R10.9 - Unspecifie d abdominal pain sennosides (senna) 17.2 mg (2 x 8.6 m g) PO BEDTIME 180 caps 6RF constipat ion 90 days K59.04 - Chronic i diopathic constipa tion simethicone aft er meals 180 mg PO .TIDAC 9 0 caps 6RF 30 days R14.0 - Abdominal distension (gaseou s), K59.04 - Chron ic idiopathic cons tipation Discontinued omeprazole Disc ontinued Reason: Doctor's Order 20 mg PO BID 180 caps 3RF K21.9 - Gastro-eso phageal reflux dis ease without esoph agitis On Hold metoclopramide HCl (Reglan) Hold Comment: Doctor's Order 5 mg PO .tidac 90 tabs 6RF K59.9 - Functional intestinal disord er, unspecified EGD/COLONOSCOPY Scheduled for 08/09/2023 BIOPSY TODAY'S VISIT TAJIK #declines She received the pantoprazole but only at once a day dosing. She has been taking omeprazole at night. Even with this she is continuing to have severe acid and dyspepsia that seems to be worse when she eats things like bread, potatoes, oatmeal or even when she drinks a lot of water. She has been doing protein shakes in the morning because this is more soothing. However she has really had to limit her diet. She also has a lot of bloating with these foods. The diarrhea has resolved since her COVID but now she is suffering constipation. She does not take the Linzess 145 every day because if she does she will have watery stools and this can interfere with the plan she has for the day. I think we need to get her bowel motility more consistent to address the bloating. We are going to reduce her to 72 micro g of Linzess and will give her 1-3 send a play with and titrate to her needs. She also received the 10 mg Reglan and is taking it without any adverse effects. She has having a lot of trouble with hemorrhoids which is not surprising given she is gone from diarrhea to constipation. She says that when she has a more solid bowel movement hemorrhoids come out and they can be quite uncomfortable. I will prescribe Proctosol cream and instructed her how to use it with the rectal applicator; however, if she can not get it she should try Preparation-H as that is very soothing as well on can even be procured in suppository form that is easier to use. She also has simethicone available if it is being covered by the insurance I will have to verify this at the next visit. In the end I think we just need to change her regimen as the COVID probably attack some of her GI systems and changed her prior stable baseline. Return office visit in 3 weeks [facility] [place] Medical History Rosacea Urge urinary incontinence Macromastia Shoulder pain Spondylosis of cervical spine Surgical History Status post laser ablation of incompetent vein History of bladder suspension procedure Family History Mother Colon polyps Social History Patient Tobacco Use Status: Never used Tobacco e-Cigarette/Vaping Use: Never Used Review of Systems Const Denies fatigue, Denies fever(s), Denies night sweats, Denies poor appetite and Denies weight loss ENT Reports Normal hearing present, Denies dental pain, Denies dysphagia, Denies hearing loss, Denies mouth pain, Denies odynophagia, Denies throat swelling, Denies tongue swelling and Reports other (Dentition adequate) Card Reports no additional complaints Resp Reports no additional complaints GI Details: Denies abdominal pain, Denies melena, Reports bloating, Denies hematochezia, Reports constipation, Denies GI cramping, Denies dysphagia, Denies excessive flatus, Denies early satiety, Reports dyspepsia, Reports heartburn, Denies diarrhea, Denies nausea, Denies odynophagia, Denies vomiting and Denies hematemesis Skin/Breast Denies pruritus, Denies lesions, Denies rash and Denies jaundice Neuro Reports Normal hearing present and Denies Abnormal speech present Endo Denies fatigue Aller/Immun Denies throat swelling and Denies tongue swelling Physical Exam Vital Signs: Last Vital Signs Pulse 73 05/30/23 10:18 BP 125/57 L 05/30/23 10:18 BMI result Body Mass Index 35.8 Const General: cooperative, no acute distress, well developed and well groomed Nutritional Appearance: well nourished and obese Orientation/consciousness: oriented to person, oriented to place and oriented to time Limitations: language barrier HEENT Head: Yes normocephalic and Yes atraumatic Eyes General: appearance normal, both eyes and all related structures Pupils: Equal, round and reactive pupils present Neck Neck: Yes normal visual inspection and Yes no lymphadenopathy Thyroid: Thyroid normal Resp Effort & Inspection: normal respiratory effort and able to speak in complete sentences Auscultation: clear to auscultation bilaterally Cardio Rate: regular rate Rhythm: regular rhythm Heart sounds: Normal, physiologic split S2 sound present Peripheral pulses: radial pulses present and posterior tibial pulses present GI Inspection: No distended, No Abdominal panniculus present and Yes obesity Palpation (GI): Soft to palpation, nontender, no guarding, not rigid and No hepatosplenomegaly present Percussion: Yes normal to percussion Auscultation: normal bowel sounds Rectal Exam - Female: deferred Skin General skin exam: no rashes or lesions noted, turgor normal, skin not dry, no jaundice, No spider nevi and no striae Rashes: no rashes Nails: normal Neuro General: oriented to person, oriented to place and oriented to time Cranial nerves: Yes Equal, round and reactive pupils present and Yes Normal hearing present Speech: No Abnormal speech present Extrem General: Yes normal to inspection, No clubbing, No cyanosis and No edema Psych Appearance: grossly normal and well kempt Mental Status: mental status grossly normal Speech and movement: Normal speech and movement present Affect: normal affect Attitude: cooperative Thought process: Normal thought process present and not confabulating Thought content: Normal thought content present Insight: Fair insight present (Psych) Judgement: Fair judgement present (Psych) Assessment & Plan Assessment & Plan (1) Small bowel motility disorder: Code(s): K59.9 - Functional intestinal disorder, unspecified (2) GERD (gastroesophageal reflux disease): Code(s): K21.9 - Gastro-esophageal reflux disease without esophagitis (3) Chronic idiopathic constipation: Code(s): K59.04 - Chronic idiopathic constipation (4) Diarrhea: Code(s): R19.7 - Diarrhea, unspecified Plan TAJIK #declines She received the pantoprazole but only at once a day dosing. She has been taking omeprazole at night. Even with this she is continuing to have severe acid and dyspepsia that seems to be worse when she eats things like bread, potatoes, oatmeal or even when she drinks a lot of water. She has been doing protein shakes in the morning because this is more soothing. However she has really had to limit her diet. She also has a lot of bloating with these foods. The diarrhea has resolved since her COVID but now she is suffering constipation. She does not take the Linzess 145 every day because if she does she will have watery stools and this can interfere with the plan she has for the day. I think we need to get her bowel motility more consistent to address the bloating. We are going to reduce her to 72 micro g of Linzess and will give her 1-3 send a play with and titrate to her needs. She also received the 10 mg Reglan and is taking it without any adverse effects. She has having a lot of trouble with hemorrhoids which is not surprising given she is gone from diarrhea to constipation. She says that when she has a more solid bowel movement hemorrhoids come out and they can be quite uncomfortable. I will prescribe Proctosol cream and instructed her how to use it with the rectal applicator; however, if she can not get it she should try Preparation-H as that is very soothing as well on can even be procured in suppository form that is easier to use. She also has simethicone available if it is being covered by the insurance I will have to verify this at the next visit. In the end I think we just need to change her regimen as the COVID probably attack some of her GI systems and changed her prior stable baseline. Return office visit in 3 weeks EGD/COLONOSCOPY Scheduled for 08/09/2023 BIOPSY Medications: New linaclotide (Linzess) 72 mcg PO QAM 30 caps 3RF hydrocortisone 2.5% (Proctosol HC) BE SURE TO INCLUDE RECTAL APPICATOR!! 1 appl AR BID 30 grams 6RF hemorrhoids K64.9 - Unspecified hemorrhoids Changed From pantoprazole (Protonix) 40 mg PO DAILY 30 days 30 tabs 3RF To pantoprazole (Protonix) 40 mg PO BID 30 days 60 tabs 6RF From sennosides (senna) 17.2 mg (2 x 8.6 mg) PO BEDTIME 90 days 180 caps 6RF constipation K59.04 - Chronic idiopathic constipation To sennosides (senna) 25.8 mg (3 x 8.6 mg) PO BEDTIME 90 days 270 caps 6RF constipation K59.04 - Chronic idiopathic constipation Refilled simethicone after meals 180 mg PO .TIDAC 30 days 90 caps 6RF K59.04 - Chronic idiopathic constipation, R14.0 - Abdominal distension (gaseous) Discontinued 2 metoclopramide HCl (Reglan) PROVIDER AWARE OR POSSIBLE INTERACTION WITH SEROQUEL AND MONITORING Discontinued Reason: Doctor's Order 5 mg PO .tidac 90 tabs 6RF K59.9 - Functional intestinal disorder, unspecified On Hold linaclotide (Linzess) Hold Comment: Doctor's Order 145 mcg PO QAM 30 caps 6RF K59.04 - Chronic idiopathic constipation, R14.0 - Abdominal distension (gaseous) Coding Level of Care Code Est Pt Level 3 (72463) Diagnoses Small bowel motility disorder K59.9 GERD (gastroesophageal reflux disease) K21.9 Chronic idiopathic constipation K59.04 Diarrhea R19.7
[2023-05-30 10:18] VITALS: BP 125/57; PULSE 73; BMI 35.8
== END 2023-05-30 10:43 | disposition home or self-care (01) ==
PROVIDERS: PCP Registered Nurse; Visit Provider Nurse Practitioner
DX: K59.9 Functional intestinal disorder, unspecified (principal); K21.9 Gastro-esophageal reflux disease without esophagitis; K59.04 Chronic idiopathic constipation
CPT/HCPCS: 99213

== ENCOUNTER → 2023-05-30 10:16 | Outpatient (BNVA) | payer MEDICAID, SELFPAY | PROVIDERS: PCP Registered Nurse; Visit Provider Nurse Practitioner | DX: K59.9 Functional intestinal disorder, unspecified (principal); K21.9 Gastro-esophageal reflux disease without esophagitis; K59.04 Chronic idiopathic constipation; R19.7 Diarrhea, unspecified | CPT/HCPCS: 99212 ==

== ENCOUNTER 2023-08-02 11:25 | Day surgery (SDC) | payer OTHER, SELFPAY ==
[2023-08-02 12:34] VITALS: BMI 35.4
--- NOTE | 2023-08-02 12:41 | MHC.SHP ---
Pre-Procedural Eval Section A - 24 Hr Update-Section A only Date of Service: 08/02/23 Section B - Complete if H&P > 30 days Chief Complaint: Gastro-esophageal reflux disease without esophagit Details of Present Illness: colon screening Relevant Family History (Specify if Yes): Yes Relevant Social History: None Present Medications: see Short Stay Collaborative assessment Medical History: Significant History (Rosacea Urge urinary incontinence Macromastia Shoulder pain Spondylosis of cervical spine) History of Previous Operations: Relevant previous surgery/procedure and date(s) ( Status post laser ablation of incompetent vein History of bladder suspension procedure) Allergies: Allergies Allergy/AdvReac Type Severity Reaction Status Date / Time divalproex sodium Allergy Unknown FACIAL Verified 05/30/23 10:25 [From DEPAKOTE] SWELLING, swelling of face pravastatin [PRAVASTATIN] Allergy Unknown MUSCLE Verified 05/30/23 10:25 ACHES, body aches 14-Count Warmer Allergy Unknown Unknown Uncoded 04/18/23 14:44 Review of Systems Sugical H&P ROS: Negative: Constitution, Cardiovascular, Respiratory, Neurological, Psychiatric, Hem-Onc, Allergic/Immunologic, Gastrointestinal, Genitourinary, Musculoskeletal, Integumentary, Endocrine and Eyes/Ears/Nose/Throat Exam Surgical H&P Exam: Normal: HEENT, Normal: Heart, Normal: Lungs, Normal: Extremities, Normal: Abdomen, Normal: Skin and Normal: Neurological Plan Diagnosis/Plan: Unchanged I have reviewed the history and physical and performed a pertinent physical examination on my patient. No changes have occurred unless specified. Time Spent With Patient Time: Total time managing care of this patient today ____ minutes.
[2023-08-02 12:45] VITALS: BP 125/78; PULSE 73; RESP 18; TEMP 36.6; O2SAT 100
[2023-08-02 13:07] LABS: UPreg QC Valid YES; Urine Pregnancy NEGATIVE (NEGATIVE)
--- NOTE | 2023-08-02 13:25 | W.PM.OPN ---
Operative Note Operative Note Date of Service: 08/02/23 Narrative: Operative Information Procedure Description: EGD, Colonoscopy Indication: GERD, colon screening Anesthesia: MAC FLEXIBLE TRANSORAL UPPER GASTROINTESTINAL ENDOSCOPY AND COLONOSCOPY PROCEDURE NOTE UPPER ENDOSCOPY Consent: Indications for the procedure and potential complications of bleeding, perforation, reaction to medications and missed diagnosis were discussed with the patient and informed consent was obtained. Instrument: Olympus GIF H 190 J mid size upper endoscope Monitoring: Vital signs and clinical assessment, continuous EKG monitoring, Pulse oximetry, Carbon Dioxide monitoring and blood pressure monitoring were done throughout the procedure. Procedure: The patient was placed in the left lateral decubitis position and pre-procedure medications were administered and a bite block was placed. The endoscope was inserted into the mouth and advanced under direct vision to the third part of duodenum. A careful inspection was made as the upper endoscope was withdrawn including a retroflexed examination of the proximal stomach; Findings and interventions are described below. Findings: Larynx:normal Esophagus: GE junction at 35 cm, diaphragm hiatus at 35 cm, islands of salmon pink tissue, possible barretts, bx taken Stomach: Normal mucosa. Biopsies were obtained to exclude h pylori. Grade 2 flap valve on retroflexed examination of the cardia. Duodenum: Normal bulb and descending duodenum, Intervention: Biopsies as noted above, COLONOSCOPY Instrument: Olympus variable stiffness pediatric scope 190L Colonoscopy Monitoring: Vital signs and clinical assessment, continuous EKG monitoring, Pulse oximetry, Carbon Dioxide monitoring and blood pressure monitoring were done throughout the procedure. Colon withdrawal time was 6 minutes. Procedure: The patient was placed in the left lateral decubitis position and pre-procedure medications were administered. After a digital rectal examination of the ano-rectum, the video colonoscope was inserted into the rectum and advanced through the colon to the cecum/TI. The colonoscope was slowly withdrawn in a retrograde panoramic fashion and the colon mucosa was carefully examined including a retroflexed view of the rectum. Findings and interventions are described below. Procedure Difficulty:moderate Findings: Terminal Ileum-normal Cecum:normal Ascending Colon: normal Transverse Colon -normal Descending Colon:normal Sigmoid Colon: normal Rectum: Retroflexion with medium internal hemorrhoids, grade !I with skin tag noted Anorectum - normal Colon preparation: [place] Bowel Preparation Scale Right colon; 2 Transverse colon: 2 Left colon; 2 (0 = Unprepared colon segment with mucosa not seen due to solid stool that cannot be cleared. 1 = Portion of mucosa of the colon segment seen, but other areas of the colon segment not well seen due to staining, residual stool and/or opaque liquid. 2 = Minor amount of residual staining, small fragments of stool and/or opaque liquid, but mucosa of colon segment seen well. 3 = Entire mucosa of colon segment seen well with no residual staining, small fragments of stool or opaque liquid) Impression and Post Procedure Diagnosis: Endoscopy Findings: esophagitis, possible short segment barretts Colonoscopy Findings: internal hemorrhoids and external irritated skin tag Plan: Await Pathology results Repeat Colonoscopy in 5 years due to Fh of colon polyps or earlier if clinically indicated High fiber diet leaflet avoid straining at stool, epsom salts and sitz bath, anusol supps or cream reflux precautions Above findings were reviewed with the patient and relevant handouts were provided if indicated.
[2023-08-02 14:09] VITALS: BP 101/63; PULSE 88; RESP 16; TEMP 36.4; O2SAT 98
[2023-08-02 14:24] VITALS: BP 124/76; PULSE 77; RESP 18; O2SAT 100
[2023-08-02 14:39] VITALS: BP 111/69; PULSE 71; RESP 20; TEMP 36.7; O2SAT 100
== END 2023-08-02 15:35 | disposition home or self-care (01) ==
PROVIDERS: Anesthesiology; PCP Orthopaedic Surgery; Visit Provider Internal Medicine Gastroenterology
PROC: (CPT 45378; principal; 2023-08-02 13:10)
DX: Z12.11 Encounter for screening for malignant neoplasm of colon (principal); K64.4 Residual hemorrhoidal skin tags; K64.8 Other hemorrhoids; Z83.719 Family history of colon polyps, unspecified; K21.00 Gastro-esophageal reflux disease with esophagitis, without bleeding; K59.04 Chronic idiopathic constipation
CPT/HCPCS: 45378; 43239; 81025; 88305; 88313; 88342; J1596; J2704; J2765

== ENCOUNTER → 2023-08-02 11:25 | Outpatient (BNV) | payer OTHER, SELFPAY | PROVIDERS: PCP Orthopaedic Surgery; Visit Provider Internal Medicine Gastroenterology | DX: Z12.11 Encounter for screening for malignant neoplasm of colon (principal); K21.00 Gastro-esophageal reflux disease with esophagitis, without bleeding | CPT/HCPCS: 43239; 45378 ==

== ENCOUNTER → 2023-08-06 13:46 | Outpatient (BNVA) | payer OTHER, SELFPAY | PROVIDERS: PCP Registered Nurse; Visit Provider Surgery | DX: K64.4 Residual hemorrhoidal skin tags (principal); K64.8 Other hemorrhoids | CPT/HCPCS: 46600; 99202 ==

== ENCOUNTER 2023-08-06 13:47 | Outpatient (AMB) | payer OTHER, SELFPAY ==
--- NOTE | 2023-08-06 13:48 | A.OFFVIS_ITS ---
Vital Signs 08/06/23 13:53 Weight 201 lb BP 125/71 Blood Pressure Location Rt brachial Position Sitting Pulse 74 Intake Visit Reasons: Hemorrhoids Intake Note: This patient presents for [facility] follow-up assessment for hemorrhoids. Pt c/o; reports no complaints at this time. Rn Advanced Required: No Accompanied by: Self / Same As Patient Allergies divalproex sodium [From DEPAKOTE] Allergy (Unknown, Verified 08/06/23 13:54) FACIAL SWELLING, swelling of face pravastatin [PRAVASTATIN] Allergy (Unknown, Verified 08/06/23 13:54) MUSCLE ACHES, body aches 14-Count Warmer Allergy (Unknown, Uncoded 08/06/23 13:54) Unknown HPI HPI Hemorrhoids: Details: [age] year old female referred for hemorrhoid issues. She describes having pain and swelling on and off with her hemorrhoids for many years. This seems to have been worsening the past year She describes occasional passage of bright blood per rectum seen on wiping She denies being chronically constipated She also describes difficulty with hygiene because of her large hemorrhoid as well. [facility] Medical History (Updated 08/06/23 @ 14:02 by Angel Puga MD) Internal and external bleeding hemorrhoids Rosacea Urge urinary incontinence Macromastia Shoulder pain Spondylosis of cervical spine Surgical History Status post laser ablation of incompetent vein History of bladder suspension procedure Family History Mother Colon polyps Social History Patient Tobacco Use Status: Never used Tobacco e-Cigarette/Vaping Use: Never Used Physical Exam Vital Signs: Last Vital Signs Pulse 74 08/06/23 13:53 BP 125/71 08/06/23 13:53 GI Other: Rectal exam shows a large external hemorrhoid on the right side, chronically swollen, about 2.5 cm in size Office Procedures Anoscopy She was in courtney-knife position. The anoscope was gently inserted. A full examination of the anal canal was done. There was a large mixed hemorrhoidal column which appears to be in the right side. This measured about 2.5 cm on the external component. There were no other lesions seen. There was no bleeding. There was no fissure or induration. [id number] Assessment & Plan Assessment & Plan (1) Internal and external bleeding hemorrhoids: Code(s): K64.4 - Residual hemorrhoidal skin tags; K64.8 - Other hemorrhoids Category: Medical Plan: She has this large hemorrhoidal column on the right side that appears to be mostly external although with a mix of internal. She describes having problems with swelling and pain for several years and this seems to have been worsening. She also describes seeing blood on wiping on and off In view of her chronic problems with her hemorrhoids she wants to proceed with hemorrhoidectomy. I explained the technique of this procedure. I reviewed the risks including but not limited to bleeding, infections, postop pain, as well as the benefits and alternatives. She understands and wants to proceed She also understands what to expect postoperatively Coding Level of Care Code New Pt Level 3 (70390) Diagnoses Internal and external bleeding hemorrhoids K64.4; K64.8 CPT Codes Details - CPT: 36672-[id number] ([id number])
[2023-08-06 13:53] VITALS: BP 125/71; PULSE 74
== END 2023-08-06 14:01 | disposition home or self-care (01) ==
PROVIDERS: PCP Registered Nurse; Visit Provider Surgery
DX: K64.4 Residual hemorrhoidal skin tags (principal); K64.8 Other hemorrhoids
CPT/HCPCS: 46600; 99203

== ENCOUNTER 2023-08-15 09:51 | Outpatient (AMB) | payer OTHER, SELFPAY ==
[2023-08-15 09:53] VITALS: BP 110/70; PULSE 75; TEMP 36.4; O2SAT 97; BMI 37.0
--- NOTE | 2023-08-15 09:53 | MHC.OFFWIV ---
Intake Vital Signs 08/15/23 09:53 Height 5 ft 3 in Weight 209 lb BMI 37.0 BP 110/70 Blood Pressure Location Lt brachial Position Sitting Pulse 75 Pulse Source Pulse Oximeter Temp 97.5 F Temp Source Temporal Artery Scan Pulse Oximetry (%) 97 Oxygen Delivery Method Room Air Intake Visit Reasons: EP Rt side back pain Intake Note: pt is here today for rt side back pain due to fall started 07/24 Patient Tobacco Use Status: Never used Tobacco Allergies divalproex sodium [From DEPAKOTE] Allergy (Unknown, Verified 08/15/23 09:56) FACIAL SWELLING, swelling of face pravastatin [PRAVASTATIN] Allergy (Unknown, Verified 08/15/23 09:56) MUSCLE ACHES, body aches 14-Count Warmer Allergy (Unknown, Uncoded 08/06/23 13:54) Unknown Do you need a note to return to daycare/school/sports/work: No HPI HPI Comments History of Present Illness Details 43 y/o female patient who presents to walk in clinic with c/o right sided back pain. Pt reports that she fall down at home, few steps and landed on her Back. Denies LOC or hitting head to the ground. Denies urinary or vaginal symptoms. Denies numbness or tingling. She is currently taking Tramadol and Flexeril for sleep and Pain from Fibromylagia . [facility] Medical History (Updated 08/06/23 @ 14:02 by Angel Puga MD) Internal and external bleeding hemorrhoids Rosacea Urge urinary incontinence Macromastia Shoulder pain Spondylosis of cervical spine Surgical History Status post laser ablation of incompetent vein History of bladder suspension procedure Family History Mother Colon polyps Social History Patient Tobacco Use Status: Never used Tobacco e-Cigarette/Vaping Use: Never Used Physical Exam Vital Signs: Last Vital Signs Temp 97.5 F 08/15/23 09:53 Pulse 75 08/15/23 09:53 BP 110/70 08/15/23 09:53 Pulse Ox 97 08/15/23 09:53 Oxygen Delivery Method Room Air 08/15/23 09:53 BMI result Body Mass Index 37.0 Const General: no acute distress; No comfortable Nutritional Appearance: obese Orientation/consciousness: patient oriented x3 Back/Spine/Pelvis Back: back tenderness (Right sided lower back tenderness to palpation) Thoracic/Lumbar Spine: thoraco-lumbar ROM normal, thoraco-lumbar spasm and lumbar spinal tenderness at L4 and at L5 Neuro General: patient oriented x3 Assessment & Plan Assessment & Plan (1) Lower back pain: Code(s): M54.50 - Low back pain, unspecified Qualifiers: Chronicity: acute Back pain laterality: right Sciatica presence: without sciatica Qualified Code(s): M54.50 - Low back pain, unspecified Plan: - IceHot - Rest back - Acetaminophen or Ibuprofen for pain relief - Continue on Flexeril and Tramadol as directed - Back Xray today. - Referral for physical therapy. Orders: Orders XR lumbar spine 2-3V Today M54.50 - Low back pain, unspecified Medications: New lidocaine 4% (AsperFlex (lidocaine)) 1 patch topical DAILY PRN 15 ea 0RF pain M54.50 - Low back pain, unspecified acetaminophen 1,000 mg (2 x 500 mg) PO Q6H PRN 30 caps 0RF pain (scale score 7-10) M54.50 - Low back pain, unspecified meloxicam 15 mg PO DAILY 30 tabs 0RF M54.50 - Low back pain, unspecified Coding Level of Care Code Est Pt Level 3 (13197) Diagnoses Acute right-sided low back pain without sciatica M54.50 Chronicity: acute Back pain laterality: right Sciatica presence: without sciatica Time Spent (min) 15
== END 2023-08-15 10:40 | disposition home or self-care (01) ==
PROVIDERS: PCP Registered Nurse; Visit Provider Nurse Practitioner Family
DX: M54.50 Low back pain, unspecified (principal)
CPT/HCPCS: 99213

== ENCOUNTER 2023-08-15 10:05 | Outpatient (REF) | payer OTHER, SELFPAY | END 2023-08-15 10:06 | disposition home or self-care (01) | LOC: HO.HMGCX 10:05 | PROVIDERS: Visit Provider Nurse Practitioner Family | DX: M54.50 Low back pain, unspecified (principal) | CPT/HCPCS: 72100 ==

== ENCOUNTER 2023-08-23 11:54 | Outpatient (AMB) | payer OTHER, SELFPAY ==
--- NOTE | 2023-08-23 12:07 | MHC.OFFVIS ---
Vital Signs 08/23/23 12:14 Height 5 ft 3 in Weight 199 lb BMI 35.2 BP 117/55 L Blood Pressure Location Lt brachial Position Sitting Pulse 70 Intake Visit Reasons: S/p egd/colon Wise Intake Note: Patient follow up for EGD/Colonoscopy results. Patient cc: Nauseas, abdominal bloating, acid reflex on and off, denies any other GI issues. 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 Accompanied by: Self / Same As Patient Allergies divalproex sodium [From DEPAKOTE] Allergy (Unknown, Verified 09/13/23 10:40) FACIAL SWELLING, swelling of face pravastatin [PRAVASTATIN] Allergy (Unknown, Verified 09/13/23 10:40) MUSCLE ACHES, body aches 14-Count Warmer Allergy (Unknown, Uncoded 09/13/23 10:40) Unknown HPI HPI S/p egd/colon Wise: Details: Assessment & Plan (1) Small bowel motility disorder: Code(s): K59.9 - Functional intestinal disorder, unspecified (2) GERD (gastroesophageal reflux disease): Code(s): K21.9 - Gastro-esophageal reflux disease without esophagitis (3) Chronic idiopathic constipation: Code(s): K59.04 - Chronic idiopathic constipation (4) Diarrhea: Code(s): R19.7 - Diarrhea, unspecified Plan [place] #declines She received the pantoprazole but only at once a day dosing. She has been taking omeprazole at night. Even with this she is continuing to have severe acid and dyspepsia that seems to be worse when she eats things like bread, potatoes, oatmeal or even when she drinks a lot of water. She has been doing protein shakes in the morning because this is more soothing. However she has really had to limit her diet. She also has a lot of bloating with these foods. The diarrhea has resolved since her COVID but now she is suffering constipation. She does not take the Linzess 145 every day because if she does she will have watery stools and this can interfere with the plan she has for the day. I think we need to get her bowel motility more consistent to address the bloating. We are going to reduce her to 72 micro g of Linzess and will give her 1-3 send a play with and titrate to her needs. She also received the 10 mg Reglan and is taking it without any adverse effects. She has having a lot of trouble with hemorrhoids which is not surprising given she is gone from diarrhea to constipation. She says that when she has a more solid bowel movement hemorrhoids come out and they can be quite uncomfortable. I will prescribe Proctosol cream and instructed her how to use it with the rectal applicator; however, if she can not get it she should try Preparation-H as that is very soothing as well on can even be procured in suppository form that is easier to use. She also has simethicone available if it is being covered by the insurance I will have to verify this at the next visit. In the end I think we just need to change her regimen as the COVID probably attack some of her GI systems and changed her prior stable baseline. Return office visit in 3 weeks Medications: New linaclotide (Linzess) 72 mcg PO QAM 30 caps 3RF hydrocortisone 2.5% (Proctosol HC) BE SURE TO INCLUDE RECTAL APPICATOR!! 1 appl MI BID 30 grams 6RF hemorrhoids K64.9 - Unspecified hemorrhoids Changed From pantoprazole (Protonix) 40 mg PO DAILY 30 days 30 tabs 3RF To pantoprazole (Protonix) 40 mg PO BID 30 days 60 tabs 6RF From sennosides (senna) 17.2 mg (2 x 8.6 mg) PO BEDTIME 90 days 180 caps 6RF constipation K59.04 - Chronic idiopathic constipation To sennosides (senna) 25.8 mg (3 x 8.6 mg) PO BEDTIME 90 days 270 caps 6RF constipation K59.04 - Chronic idiopathic constipation Refilled simethicone after meals 180 mg PO .TIDAC 30 days 90 caps 6RF K59.04 - Chronic idiopathic constipation, R14.0 - Abdominal distension (gaseous) Discontinued metoclopramide HCl (Reglan) PROVIDER AWARE OR POSSIBLE INTERACTION WITH SEROQUEL AND MONITORING Discontinued Reason: Doctor's Order 5 mg PO .tidac 90 tabs 6RF K59.9 - Functional intestinal disorder, unspecified On Hold linaclotide (Linzess) Hold Comment: Doctor's Order 145 mcg PO QAM 30 caps 6RF K59.04 - Chronic idiopathic constipation, R14.0 - Abdominal distension (gaseous) EGD/COLONOSCOPY 08/02/23 Findings: Larynx:normal Esophagus: GE junction at 35 cm, diaphragm hiatus at 35 cm, islands of salmon pink tissue, possible barretts, bx taken Stomach: Normal mucosa. Biopsies were obtained to exclude h pylori. Grade 2 flap valve on retroflexed examination of the cardia. Duodenum: Normal bulb and descending duodenum, Findings: Terminal Ileum-normal Cecum:normal Ascending Colon: normal Transverse Colon -normal Descending Colon:normal Sigmoid Colon: normal Rectum: Retroflexion with medium internal hemorrhoids, grade !I with skin tag noted Anorectum - normal Impression and Post Procedure Diagnosis: Endoscopy Findings: esophagitis, possible short segment barretts Colonoscopy Findings: internal hemorrhoids and external irritated skin tag Plan: Await Pathology results Repeat Colonoscopy in 5 years due to Fh of colon polyps or earlier if clinically indicated High fiber diet leaflet avoid straining at stool, epsom salts and sitz bath, anusol supps or cream reflux precautions BIOPSY Received: 08/02/23 Diagnosis A. Stomach, biopsy: Antral-type and oxyntic mucosa with moderate chronic, focally active, inflammation; no Helicobacter organisms seen. B. 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 - No dysplasia seen. - Active esophagitis (maximum eosinophil count 1 per high powered field). C. Esophagus, distal, biopsy: Squamous epithelium within normal limits; no inflammation seen TODAY'S VISIT [place] #declines She will be having hemorrhoid surgery later this month because her hemorrhoids became very large and swollen after the colonoscopy. She has been having intermittent very strong nausea and dizziness. She has a hx of ear problems with a similar presentation. This suddenly started over the past 3 days. The nausea is not causing nausea and ebbs and flows but is always there mildly. She was on meclizine in the past for this, I will refill this. She was rx'ed zofran but since she needs reglan I advise against her taking both to prevent prolongation of the QR. I educate her about SSBE and that she needs pantoprazole BID always going forward. She is aware we need to repeat the EGD in 2 years. She wants to stay at 145 LIzness for now. She is also using senna etc because the 290 is too strong. Return office visit in 3 months COUNT INCLUDES THE [facility] Medical History Internal and external bleeding hemorrhoids Family history of polyps in the colon Rosacea Dysuria Urinary urgency Urge urinary incontinence Small bowel motility disorder Liver cyst Macromastia Shoulder pain Spondylosis of cervical spine Swelling Surgical History S/P dissection of cervical lymph nodes Status post laser ablation of incompetent vein History of bladder suspension procedure Family History Mother Colon polyps Social History Comment: counts correct Patient Tobacco Use Status: Never used Tobacco e-Cigarette/Vaping Use: Never Used Review of Systems Const Denies fatigue, Denies fever(s), Denies night sweats, Denies poor appetite and Denies weight loss ENT Reports Normal hearing present, Denies dental pain, Denies dysphagia, Reports dizziness, Denies hearing loss, Denies mouth pain, Denies odynophagia, Reports disequilibrium, Denies throat swelling, Denies tongue swelling and Reports other (Dentition adequate) Card Reports no additional complaints Resp Reports no additional complaints GI Details: Denies abdominal pain, Denies melena, Reports bloating, Denies hematochezia, Reports constipation, Denies GI cramping, Denies dysphagia, Denies excessive flatus, Denies early satiety, Reports heartburn, Denies diarrhea, Reports nausea, Denies odynophagia, Denies vomiting and Denies hematemesis Skin/Breast Denies pruritus, Denies lesions, Denies rash and Denies jaundice Neuro Reports Normal hearing present, Denies Abnormal speech present, Reports dizziness and Reports disequilibrium Endo Denies fatigue Aller/Immun Denies throat swelling and Denies tongue swelling Physical Exam Vital Signs: Last Vital Signs Pulse 70 08/23/23 12:14 BP 117/55 L 08/23/23 12:14 BMI result Body Mass Index 35.2 Const General: cooperative, no acute distress, well developed and well groomed Nutritional Appearance: well nourished and obese Orientation/consciousness: oriented to person, oriented to place and oriented to time Limitations: No language barrier HEENT Head: Yes normocephalic and Yes atraumatic Eyes General: appearance normal, both eyes and all related structures Pupils: Equal, round and reactive pupils present Neck Neck: Yes normal visual inspection and Yes no lymphadenopathy Thyroid: Thyroid normal Resp Effort & Inspection: normal respiratory effort and able to speak in complete sentences Auscultation: clear to auscultation bilaterally Cardio Rate: regular rate Rhythm: regular rhythm Heart sounds: Normal, physiologic split S2 sound present Peripheral pulses: radial pulses present and posterior tibial pulses present GI Inspection: No distended, No Abdominal panniculus present and Yes obesity Palpation (GI): Soft to palpation, nontender, no guarding, not rigid and No hepatosplenomegaly present Percussion: Yes normal to percussion Auscultation: normal bowel sounds Rectal Exam - Female: deferred Skin General skin exam: no rashes or lesions noted, turgor normal, skin not dry, no jaundice, No spider nevi and no striae Rashes: no rashes Nails: normal Neuro General: oriented to person, oriented to place and oriented to time Cranial nerves: Yes Equal, round and reactive pupils present and Yes Normal hearing present Speech: No Abnormal speech present Extrem General: Yes normal to inspection, No clubbing, No cyanosis and No edema Psych Appearance: grossly normal and well kempt Mental Status: mental status grossly normal Speech and movement: Normal speech and movement present Affect: normal affect Attitude: cooperative Thought process: Normal thought process present and not confabulating Thought content: Normal thought content present Insight: Limited insight present (Psych) Judgement: Limited judgement present (Psych) Results Reviewed Results Reviewed: EGD/COLONOSCOPY 08/02/23 Findings: Larynx:normal Esophagus: GE junction at 35 cm, diaphragm hiatus at 35 cm, islands of salmon pink tissue, possible barretts, bx taken Stomach: Normal mucosa. Biopsies were obtained to exclude h pylori. Grade 2 flap valve on retroflexed examination of the cardia. Duodenum: Normal bulb and descending duodenum, Findings: Terminal Ileum-normal Cecum:normal Ascending Colon: normal Transverse Colon -normal Descending Colon:normal Sigmoid Colon: normal Rectum: Retroflexion with medium internal hemorrhoids, grade !I with skin tag noted Anorectum - normal Impression and Post Procedure Diagnosis: Endoscopy Findings: esophagitis, possible short segment barretts Colonoscopy Findings: internal hemorrhoids and external irritated skin tag Plan: Await Pathology results Repeat Colonoscopy in 5 years due to Fh of colon polyps or earlier if clinically indicated High fiber diet leaflet avoid straining at stool, epsom salts and sitz bath, anusol supps or cream reflux precautions BIOPSY Received: 08/02/23 Diagnosis A. Stomach, biopsy: Antral-type and oxyntic mucosa with moderate chronic, focally active, inflammation; no Helicobacter organisms seen. B. 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 - No dysplasia seen. - Active esophagitis (maximum eosinophil count 1 per high powered field). C. 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: Comment: 2023 scope=SSBE repeat in 2 years Code(s): K22.70 - Johnson's esophagus without dysplasia Category: Medical (2) GERD (gastroesophageal reflux disease): Code(s): K21.9 - Gastro-esophageal reflux disease without esophagitis Category: Medical (3) Family history of colon cancer in mother: Comment: 2023 colonoscopy equals negative study repeat in 5 years Code(s): Z80.0 - Family history of malignant neoplasm of digestive organs Category: Medical (4) Chronic idiopathic constipation: Code(s): K59.04 - Chronic idiopathic constipation Category: Medical (5) Abdominal bloating: Code(s): R14.0 - Abdominal distension (gaseous) Category: Medical (6) Dizziness: Code(s): R42 - Dizziness and giddiness Category: Medical Plan [place] #declines She will be having hemorrhoid surgery later this month because her hemorrhoids became very large and swollen after the colonoscopy. She has been having intermittent very strong nausea and dizziness. She has a hx of ear problems with a similar presentation. This suddenly started over the past 3 days. The nausea is not causing nausea and ebbs and flows but is always there mildly. She was on meclizine in the past for this, I will refill this. She was rx'ed zofran but since she needs reglan I advise against her taking both to prevent prolongation of the QR. I educate her about SSBE and that she needs pantoprazole BID always going forward. She is aware we need to repeat the EGD in 2 years. She wants to stay at 145 LIzness for now. She is also using senna etc because the 290 is too strong. Return office visit in 3 months Medications: Changed From meclizine 25 mg PO BEDTIME PRN Vertigo R42 - Dizziness and giddiness To meclizine 25 mg PO BID 60 tabs 6RF Vertigo R42 - Dizziness and giddiness From pantoprazole 40 mg PO DAILY 30 tabs 0RF K22.70 - Johnson's esophagus without dysplasia, K21.9 - Gastro-esophageal reflux disease without esophagitis To pantoprazole 40 mg PO BID 30 tabs 6RF K22.70 - Johnson's esophagus without dysplasia, K21.9 - Gastro-esophageal reflux disease without esophagitis Refilled simethicone after meals 180 mg PO .TIDAC 90 caps 6RF 30 days R14.0 - Abdominal distension (gaseous), K59.04 - Chronic idiopathic constipation metoclopramide HCl (Reglan) 10 mg PO TID 90 tabs 6RF K59.9 - Functional intestinal disorder, unspecified dicyclomine 20 mg PO QID 120 tabs 6RF 30 days R10.9 - Unspecified abdominal pain Discontinued linaclotide Discontinued Reason: Doctor's Order 72 mcg PO QAM 30 caps 3RF Resumed linaclotide (Linzess) 145 mcg PO QAM 30 caps 6RF K59.04 - Chronic idiopathic constipation, R14.0 - Abdominal distension (gaseous) Coding Level of Care Code Est Pt Level 4 (36737) Diagnoses 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
[2023-08-23 12:14] VITALS: BP 117/55; PULSE 70; BMI 35.2
== END 2023-08-23 12:46 | disposition home or self-care (01) ==
PROVIDERS: Visit Provider Nurse Practitioner
DX: K22.70 Barrett's esophagus without dysplasia (principal); K21.9 Gastro-esophageal reflux disease without esophagitis; Z80.0 Family history of malignant neoplasm of digestive organs; K59.04 Chronic idiopathic constipation; R14.0 Abdominal distension (gaseous); R42 Dizziness and giddiness
CPT/HCPCS: 99214

== ENCOUNTER → 2023-08-23 11:54 | Outpatient (BNVA) | payer OTHER, SELFPAY | PROVIDERS: Visit Provider Nurse Practitioner | DX: K22.70 Barrett's esophagus without dysplasia (principal); K21.9 Gastro-esophageal reflux disease without esophagitis; K59.04 Chronic idiopathic constipation; R14.0 Abdominal distension (gaseous); R42 Dizziness and giddiness; Z80.0 Family history of malignant neoplasm of digestive organs | CPT/HCPCS: 99212 ==

== ENCOUNTER 2023-08-27 10:32 | Outpatient (AMB) | payer OTHER, SELFPAY ==
--- NOTE | 2023-08-27 10:32 | A.OFFVIS_ITS ---
Vital Signs 08/27/23 10:41 Height 5 ft 3 in Weight 201 lb 0.985 oz BMI 35.6 BP 110/58 L Blood Pressure Location Rt brachial Position Sitting Pulse 89 Pulse Source Pulse Oximeter Pulse Oximetry (%) 98 Oxygen Delivery Method Room Air Intake Visit Reasons: osteoarthritis Intake Note: Patient last seen by Leticia 08/30/22 presents today for 1 year follow up Hourly Shift Required: No Accompanied by: Self / Same As Patient Allergies divalproex sodium [From DEPAKOTE] Allergy (Unknown, Verified 08/27/23 10:33) FACIAL SWELLING, swelling of face pravastatin [PRAVASTATIN] Allergy (Unknown, Verified 08/27/23 10:33) MUSCLE ACHES, body aches 14-Count Warmer Allergy (Unknown, Uncoded 08/27/23 10:33) Unknown Medication List - Last Reconciled 08/27/23 by Germania Mcbride MD budesonide-formoterol 80-4.5 mcg/actuation (Symbicort) 2 puffs inhalation cetirizine 10 mg PO DAILY PRN cholecalciferol (vitamin D3) (Vitamin D3) 50 mcg PO DAILY cyclobenzaprine 10 mg PO TID dicyclomine 20 mg PO QID 30 days fluticasone propionate 50 mcg/actuation 1 spray intranasal BID furosemide 20 mg PO BID PRN hydrocortisone 2.5% (Proctosol HC) 1 appl DC BID lidocaine 4% (AsperFlex (lidocaine)) 1 patch topical DAILY PRN linaclotide (Linzess) 145 mcg PO QAM meclizine 25 mg PO BID meloxicam 15 mg PO DAILY metoclopramide HCl (Reglan) 10 mg PO TID mirabegron ER (Myrbetriq) 50 mg PO DAILY pantoprazole 40 mg PO BID polypodium leucotomos extract (Heliocare) 240 mg PO DAILY sennosides (senna) 25.8 mg (3 x 8.6 mg) PO BEDTIME 90 days simethicone 180 mg PO .TIDAC 30 days tizanidine 4 mg PO DAILY PRN tramadol 50 mg PO DAILY PRN venlafaxine ER 75 mg PO DAILY HPI Comments Details: 43-year-old female with degenerative spinal arthritis and fibromyalgia returns for follow-up. She was last seen by Kelly Bernal 08/2022. She states that she used to see a provider for trigger point injections regularly until that provider . She saw another provider which not do trigger point injections for her. She states that she continues to get intermittent pain in her neck, back and feet. Pain of her feet is especially worse at night. She wears compression stockings which relieved some of the pain. She walks on the treadmill for about an hour 3 times a week and does minimal weights. [facility] Medical History Dysuria Urinary urgency Swelling Shoulder pain Liver cyst Small bowel motility disorder Family history of polyps in the colon Internal and external bleeding hemorrhoids Rosacea Urge urinary incontinence Macromastia Spondylosis of cervical spine Surgical History Status post laser ablation of incompetent vein History of bladder suspension procedure Family History Mother Colon polyps Social History Patient Tobacco Use Status: Never used Tobacco e-Cigarette/Vaping Use: Never Used Review of Systems ENT Reports neck pain Musc Reports myalgias, Reports arthralgias, Reports neck pain and Reports numbness Neuro Reports numbness Physical Exam Vital Signs: Last Vital Signs Pulse 89 08/27/23 10:41 BP 110/58 L 08/27/23 10:41 Pulse Ox 98 08/27/23 10:41 Oxygen Delivery Method Room Air 08/27/23 10:41 BMI result Body Mass Index 35.6 Const General: cooperative, healthy appearing and comfortable Nutritional Appearance: obese Orientation/consciousness: patient oriented x3 Limitations: no limitations HEENT Head: Yes normocephalic and Yes atraumatic Mouth: moist mucous membranes Resp Effort & Inspection: normal respiratory effort and able to speak in complete sentences Auscultation: clear to auscultation bilaterally Cardio Rate: regular rate Rhythm: regular rhythm Skin General skin exam: no rashes or lesions noted Neuro General: patient oriented x3 Extrem Other: No active synovitis Rare fibromyalgia tender points Results Reviewed Results Reviewed: Laboratory Tests 04/25/19 03/10/20 10/19/21 09:00 10:55 14:41 ESR 2 Uric Acid C-Reactive Protein TSH Rheumatoid Factor SS-A/Ro Antibody <1.0 <1.0 NEG SS-B/La Antibody <1.0 <1.0 NEG Sm (Parkinson) Antibody <1.0 SmRNP Antibodies <1.0 Double Strand DNA Ab 1 Complement C3 120 Complement C4 10/19/21 14:41 ESR Uric Acid 5.0 C-Reactive Protein 0.08 TSH 1.85 Rheumatoid Factor < 15.0 SS-A/Ro Antibody SS-B/La Antibody Sm (Parkinson) Antibody SmRNP Antibodies Double Strand DNA Ab Complement C3 Complement C4 [facility] [place] [facility] [place] [facility] negative. Date of Service: 01/24/22 Procedure(s): MR cervical spine wo con Accession Number(s): [id number] EXAMINATION: MR CERVICAL SPINE WITHOUT CONTRAST CLINICAL INFORMATION: 41-year-old with self-reported neck pain radiating to the upper extremities, right more than left. Radiculopathy, Chiari type I malformation. COMPARISON: 03/31/2020 MRI TECHNIQUE: MRI of the cervical spine was obtained using routine sequences without contrast. FINDINGS: Alignment: Normal. No spondylolisthesis. Craniocervical Junction/C1-C2 Articulations: Slight retrolisthesis of the left C1-C2 facet joint, stable in appearance. Atlantooccipital joints are intact and aligned. Visualized Intracranial Structures: The cerebellar tonsils project approximately 5 mm below the level of the plane of the foramen magnum. Given the appearance, the findings are more consistent with cerebellar tonsillar ectopia rather than a Chiari I malformation as there is no significant tonsillar pegging or cervicomedullary kinking. Otherwise unremarkable. Vertebral Bodies: Vertebral body heights are well maintained, stable in appearance. Disc Spaces and Endplates: There is [id number] disc volume loss at C5-C6, with disc desiccation, stable in appearance. Minor anterior marginal endplate spurring is noted at this level, stable in appearance. The remaining cervical intervertebral discs demonstrate normal height and signal with no significant spondylosis. Endplates appear intact. Bone Marrow: No significant marrow-replacing process or bone marrow edema. C2-C3: No disc herniation, DJD, canal or neural foraminal stenosis, stable in appearance. C3-C4: Small central disc protrusion with minimal indentation of the ventral thecal sac, stable in appearance, without cord impingement or canal stenosis. Minor facet spurring and left-sided uncinate process spurring, stable in appearance, with mild left-sided neural foraminal narrowing, unchanged. C4-C5: Normal disc contour. No disc herniation or canal stenosis. No significant DJD or neural foraminal stenosis. C5-C6: Broad-based disc protrusion noted, slightly asymmetric to the right, with [id number] flattening of the ventral dural sac without cord impingement, similar to previous exam, without significant canal stenosis. Mild uncovertebral spurring is noted bilaterally with mild right-sided neural foraminal stenosis, stable in appearance. C6-C7: No disc herniation or canal stenosis. Mild uncovertebral spurring noted on the left, stable in appearance, with minor left-sided foraminal narrowing, unchanged. C7-T1: No disc herniation or canal stenosis. No significant DJD or neural foraminal stenosis, stable in appearance. Spinal Cord: The cervical and visualized upper thoracic spinal cord is normal in morphology, caliber and signal intensity throughout. No interval change. Extracranial Soft Tissues: The visualized extracranial head/neck soft tissues are unremarkable within the limitations of the study. MR/MR cervical spine wo con IMPRESSION: 1. No convincing evidence for Chiari I malformation. 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 2. Disc protrusions at C3-C4 and C5-C6, similar to the previous exam, with discogenic degenerative changes at C5-C6, stable in appearance, without cord impingement or canal stenosis. 3. Minor degrees of multilevel DJD with mild right-sided neural foraminal stenosis at C5-C6, minimal left-sided foraminal stenosis at C6-C7 and mild left-sided neural foraminal stenosis at C3-C4 without neural impingement. Assessment & Plan Assessment & Plan (1) Fibromyalgia, primary: Code(s): M79.7 - Fibromyalgia Category: Medical Plan: 43-year-old female with fibromyalgia and recall degenerative arthritis returns for follow-up. She was last seen by Kelly Bernal 08/2022. Patient is on multiple medicines for her pain prescribed by other providers. She used to get trigger point injections by a provider that recently and she would like to get trigger point injections regularly. I will refer her to pain management. Advised patient to consider water aerobics/aquatherapy. Follow-up as needed Plan I spent 17 minutes reviewing patient's chart, evaluating patient, counseling patient and documenting in the chart Orders: Referrals Pain Management Referral M25.512 - Pain in left shoulder Coding Level of Care Code Est Pt Level 3 (59906) Diagnoses Fibromyalgia, primary M79.7
[2023-08-27 10:41] VITALS: BP 110/58; PULSE 89; O2SAT 98; BMI 35.6
== END 2023-08-27 11:00 | disposition home or self-care (01) ==
LOC: HO.RHE 10:32
PROVIDERS: Visit Provider Student in an Organized Health Care Education/Training Program
DX: M79.7 Fibromyalgia (principal)
CPT/HCPCS: 99213

== ENCOUNTER → 2023-08-27 10:32 | Outpatient (BNVA) | payer OTHER, SELFPAY | PROVIDERS: Visit Provider Student in an Organized Health Care Education/Training Program | DX: M79.7 Fibromyalgia (principal) | CPT/HCPCS: 99212 ==

== ENCOUNTER 2023-08-31 08:53 | Day surgery (SDC) | payer OTHER, SELFPAY ==
--- NOTE | 2023-08-29 13:49 | P.CONAN_ITS ---
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 (Acute) Internal and external bleeding hemorrhoids (Acute) Diarrhea (Acute) Urge urinary incontinence (Acute) Thoracic outlet syndrome (Acute) Lower extremity edema (Acute) Abdominal cramping (Acute) GERD (gastroesophageal reflux disease) (Acute) Family history of colon cancer in mother (Acute) Abdominal bloating (Acute) Chronic idiopathic constipation (Acute) Macromastia (Acute) Spondylosis of cervical spine (Acute) Past Medical History Medical History Internal and external bleeding hemorrhoids Family history of polyps in the colon Rosacea Dysuria Urinary urgency Urge urinary incontinence Small bowel motility disorder Liver cyst Macromastia Shoulder pain Spondylosis of cervical spine Swelling Family History Family History Mother Colon polyps Surgical History Surgical History S/P dissection of cervical lymph nodes Status post laser ablation of incompetent vein History of bladder suspension procedure Social History Social History Patient Tobacco Use Status: Never used Tobacco e-Cigarette/Vaping Use: Never Used Use of substances other than those prescribed or required for medical reasons: No Are you DNR?: No Advance Directives: No Advance Directives Information Provided: Yes Meds Allergies Allergy/AdvReac Type Severity Reaction Status Date / Time divalproex sodium Allergy Unknown FACIAL Verified 08/31/23 09:41 [From DEPAKOTE] SWELLING, swelling of face pravastatin [PRAVASTATIN] Allergy Unknown MUSCLE Verified 08/31/23 09:41 ACHES, body aches 14-Count Warmer Allergy Unknown Unknown Uncoded 08/31/23 09:41 Home Medications ?Medication ?Instructions ?Recorded ?Confirmed ?Last Taken ?Type cholecalciferol (vitamin D3) 50 50 mcg PO DAILY 08/30/21 08/02/23 Unknown History mcg (2,000 unit) tablet (Vitamin D3) furosemide 20 mg tablet 20 mg PO BID PRN Edema 08/30/21 08/02/23 Unknown History polypodium leucotomos extract 240 240 mg PO DAILY 08/30/21 08/02/23 Unknown History mg capsule (Heliocare) tramadol 50 mg tablet 50 mg PO DAILY PRN Pain, Mild 08/30/21 08/02/23 Unknown History fluticasone propionate 50 1 spray intranasal BID 09/15/21 08/02/23 Unknown History mcg/actuation nasal spray,suspension budesonide-formoterol HFA 80 2 puff inhalation 08/30/22 08/30/22 Unknown History mcg-4.5 mcg/actuation aerosol inhaler (Symbicort) cetirizine 10 mg tablet 10 mg PO DAILY PRN allergies 08/30/22 08/02/23 Unknown History cyclobenzaprine 10 mg tablet 10 mg PO TID 08/30/22 08/02/23 Unknown History venlafaxine 75 mg capsule,extended 75 mg PO DAILY 08/30/22 08/02/23 Unknown History release 24 hr Exam Height,Weight and Vital Signs: Weight 91.172 kg Assessment and Plan Assessment Anesthesia Assessment: Chart Reviewed Documented by User: Gabbi Campa MD 08/31/23 09:52 PMFSH Past Medical History Medical History Internal and external bleeding hemorrhoids Family history of polyps in the colon Rosacea Dysuria Urinary urgency Urge urinary incontinence Small bowel motility disorder Liver cyst Macromastia Shoulder pain Spondylosis of cervical spine Swelling Family History Family History Mother Colon polyps Family history of problems with anesthesia: No Surgical History Surgical History S/P dissection of cervical lymph nodes Status post laser ablation of incompetent vein History of bladder suspension procedure History of Problems with Anesthesia: No Social History Social History Patient Tobacco Use Status: Never used Tobacco e-Cigarette/Vaping Use: Never Used Use of substances other than those prescribed or required for medical reasons: No Are you DNR?: No Advance Directives: No Advance Directives Information Provided: Yes Meds Allergies Allergy/AdvReac Type Severity Reaction Status Date / Time divalproex sodium Allergy Unknown FACIAL Verified 08/31/23 09:41 [From DEPAKOTE] SWELLING, swelling of face pravastatin [PRAVASTATIN] Allergy Unknown MUSCLE Verified 08/31/23 09:41 ACHES, body aches 14-Count Warmer Allergy Unknown Unknown Uncoded 08/31/23 09:41 Home Medications ?Medication ?Instructions ?Recorded ?Confirmed ?Last Taken ?Type cholecalciferol (vitamin D3) 50 50 mcg PO DAILY 08/30/21 08/02/23 Unknown Hi story mcg (2,000 unit) tablet (Vitamin D3) furosemide 20 mg tablet 20 mg PO BID PRN Edema 08/30/21 08/02/23 Unknown History polypodium leucotomos extract 240 240 mg PO DAILY 08/30/21 08/02/23 Unknown History mg capsule (Heliocare) tramadol 50 mg tablet 50 mg PO DAILY PRN Pain, Mild 08/30/21 08/02/23 Unknown History fluticasone propionate 50 1 spray intranasal BID 09/15/21 08/02/23 Unknown History mcg/actuation nasal spray,suspension budesonide-formoterol HFA 80 2 puff inhalation 08/30/22 08/30/22 Unknown History mcg-4.5 mcg/actuation aerosol inhaler (Symbicort) cetirizine 10 mg tablet 10 mg PO DAILY PRN allergies 08/30/22 08/02/23 Unknown History cyclobenzaprine 10 mg tablet 10 mg PO TID 08/30/22 08/02/23 Unknown History venlafaxine 75 mg capsule,extended 75 mg PO DAILY 08/30/22 08/02/23 Unknown History release 24 hr Exam Airway Mallampati Class: II TM Dist: >3cm Neck ROM: Full Heart: rrr Lungs: cta Assessment and Plan Assessment Anesthesia Assessment: Anesthesia Plan Discussed Final Anesthetic Review Family History of Problems with Anesthesia: No History of Problems with Anesthesia: No NPO: Yes ASA Class: III Final Preanesthetic Review: No Changes in Pt Med Stat, Meds/Allgs Chart Reviewed, Consent Obtained/Reviewed and Anes Risks/Benef Reviewed Patient Risk: Intermediate Procedure Risk: Low Anesthetic Plan Anesthetic Plan: GA Disposition: Standard PACU
[2023-08-31] VITALS (10 sets, daily range): BP systolic 116–130; BP diastolic 63–77; PULSE 61–91; RESP 14–18; TEMP 36.1–36.6; O2SAT 95–100; BMI 34.5
[2023-08-31 09:32] LABS: UPreg QC Valid YES; Urine Pregnancy NEGATIVE (NEGATIVE)
[2023-08-31] MEDS: Lactated Ringers 1,000 ML 100 ML IVCONT (09:39)
--- NOTE | 2023-08-31 10:20 | MHC.SHP ---
Pre-Procedural Eval Section A - 24 Hr Update-Section A only Date of Service: 08/31/23 The patient is an INPATIENT: No Changes since office visit: No Cold of Flu in the past 2 weeks, No New Medical Problems, No Changes in Medication and No Patient answered all questions The patient has been examined within 24 hours of the surgical procedure. The History & Physical has been completed within 30 days and I have reviewed it.: Yes Section B - Complete if H&P > 30 days Chief Complaint: Residual hemorrhoidal skin tags Allergies: Allergies Allergy/AdvReac Type Severity Reaction Status Date / Time divalproex sodium Allergy Unknown FACIAL Verified 08/31/23 09:41 [From DEPAKOTE] SWELLING, swelling of face pravastatin [PRAVASTATIN] Allergy Unknown MUSCLE Verified 08/31/23 09:41 ACHES, body aches 14-Count Warmer Allergy Unknown Unknown Uncoded 08/31/23 09:41 Plan I have reviewed the history and physical and performed a pertinent physical examination on my patient. No changes have occurred unless specified. Time Spent With Patient Time: Total time managing care of this patient today ____ minutes.
--- NOTE | 2023-08-31 11:34 | W.PM.OPN ---
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 Examination in the office showed 1 large hemorrhoidal column, mix of internal external with prolapse. She wanted to proceed with hemorrhoidectomy. She understood the technique of the procedure as well as the risks, benefits, and alternatives She was brought to the operating room and placed in prone courtney-knife position under general anesthesia via endotracheal tube. The buttocks were retracted with wide tape laterally. The perianal area was prepped and draped in the usual sterile fashion. A surgical time-out was done. The patient received Cefotan 2 g IV preoperatively The perianal area was infiltrated with lidocaine 1%. I inserted the Rae Parkinson retractor and examined the anal canal circumferentially. There was note of a large hemorrhoidal column, mix of internal external on the right anterior area. There were no other lesions. There were some other smaller hemorrhoidal columns on both the left and right side I applied a Mendez grasper at the hemorrhoidal column on the anterior aspect to retract this. I made a [id number] stitch at the pedicle past the dentate with a chromic 3-0. I made an incision around this hemorrhoidal column to the perianal skin with a blade 15. I excised this hemorrhoidal column above the plane of the sphincters with scissors. I closed the incision with a running chromic 3-0 stitch. Additional [id number]-[id number] sutures were placed for hemostasis. No other lesions in the anal canal. There was no fissure. There was no induration. I infiltrated the perianal area with Marcaine 0.5% for postop analgesia. Hemostasis was confirmed. The procedure was then completed. The patient tolerated the procedure well. There were no immediate complications. Initial and final counts of sponges and instruments were correct. Estimated blood loss was about 20 cc The patient was extubated without difficulty and transferred to the recovery room with stable vital signs.
[2023-08-31] MEDS: fentaNYL citrate/PF 100 MCG/2 ML VIAL 25 MCG IVPUSH ×2 (12:09→12:14)
== END 2023-08-31 13:15 | disposition home or self-care (01) ==
PROVIDERS: Nurse Practitioner; Visit Provider Surgery
PROC: (CPT 46255; principal; 2023-08-31 11:00)
DX: K64.8 Other hemorrhoids (principal); K64.4 Residual hemorrhoidal skin tags; N39.41 Urge incontinence; L71.9 Rosacea, unspecified; Z79.899 Other long term (current) drug therapy; Z88.8 Allergy status to other drugs, medicaments and biological substances; Z98.890 Other specified postprocedural states
CPT/HCPCS: 46255; 81025; 88304; J0131; J1100; J1885; J2250; J2405; J2704; J2795; J3010

== ENCOUNTER → 2023-08-31 08:53 | Outpatient (BNV) | payer OTHER, SELFPAY | PROVIDERS: Visit Provider Surgery | DX: K64.8 Other hemorrhoids (principal) | CPT/HCPCS: 46255 ==

== ENCOUNTER 2023-09-13 10:34 | Outpatient (AMB) | payer OTHER, SELFPAY ==
--- NOTE | 2023-09-13 10:35 | A.OFFVIS_ITS ---
Intake Visit Reasons: s/p hemorrhoidectomy Intake Note: This patient presents for a post-op assessment status post hemorrhoidectomy. Patient c/o; reports no complaints. 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 She tolerated the procedure well. She currently admits to some pain postop but this has improved significantly. She says she has no problems with bowel movements. [facility] [place] Medical History Internal and external bleeding hemorrhoids Family history of polyps in the colon Rosacea Dysuria Urinary urgency Urge urinary incontinence Small bowel motility disorder Liver cyst Macromastia Shoulder pain Spondylosis of cervical spine Swelling Surgical History S/P dissection of cervical lymph nodes Status post laser ablation of incompetent vein History of bladder suspension procedure Family History Mother Colon polyps Social History Comment: counts correct Patient Tobacco Use Status: Never used Tobacco e-Cigarette/Vaping Use: Never Used Review of Systems Const Denies chills and Denies fever(s) Physical Exam Const General: comfortable and no acute distress Resp Effort & Inspection: normal respiratory effort GI Other: Rectal exam shows the hemorrhoidectomy site to be healing well, not infected Assessment & Plan Assessment & Plan (1) Internal and external bleeding hemorrhoids: Code(s): K64.4 - Residual hemorrhoidal skin tags; K64.8 - Other hemorrhoids Category: Medical Plan: Status post hemorrhoidectomy. She is doing well postoperatively. Her incision is healing well. Her path report shows hemorrhoids versus papillae. She can follow up on a p.r.n. basis. She was advised on the benefits of avoiding constipation and straining. Coding Level of Care Code Global (74936) Diagnoses Internal and external bleeding hemorrhoids K64.4; K64.8
== END 2023-09-13 10:43 | disposition home or self-care (01) ==
PROVIDERS: Visit Provider Surgery
DX: K64.4 Residual hemorrhoidal skin tags (principal); K64.8 Other hemorrhoids
CPT/HCPCS: 99024

== ENCOUNTER → 2023-09-13 10:34 | Outpatient (BNVA) | payer OTHER, SELFPAY | PROVIDERS: Visit Provider Surgery | DX: Z09 Encounter for follow-up examination after completed treatment for conditions other than malignant neoplasm (principal); K64.4 Residual hemorrhoidal skin tags; K64.8 Other hemorrhoids | CPT/HCPCS: 99212 ==

== ENCOUNTER 2023-09-24 10:55 | Outpatient (REF) | payer OTHER, SELFPAY ==
--- NOTE | ~2023-09-24 | XR_ITS ---
EXAMINATION: XR SHOULDER, RIGHT CLINICAL INFORMATION: Pain in right shoulder. COMPARISON: 02/28/2018 TECHNIQUE: AP external rotation, Grashey, scapular Y, and axillary views of the right shoulder. FINDINGS: Mild degenerative changes in the acromioclavicular joint with joint space narrowing and hypertrophic change. Glenohumeral alignment is preserved. Bone mineralization is normal. No soft tissue calcifications appreciated adjacent to the humeral head. XR/XR shoulder RT min 2V IMPRESSION: Mild degenerative changes in the acromioclavicular joint.
[2023-09-24 13:02] LABS: Alanine Aminotransferase 24 U/L (0-31); Albumin Level 4.3 g/dL (3.5-5.0); Alkaline Phosphatase 46 U/L (39-117); Anion Gap 7 (12-20); Aspartate Amino Transferase 12 U/L (5-31); Bilirubin Total 0.5 mg/dL (0.0-1.0); Blood Urea Nitrogen 13 mg/dL (9-16); Calcium 9.4 mg/dL (8.4-10.2); Carbon Dioxide 29 mmol/L (22-29); Chloride 106 mmol/L (96-108); Cholesterol 220 mg/dL (<200); Estimated Glomerular Filt Rate > 60; Glucose Random 92 mg/dL (60-115); HDL Cholesterol 56 mg/dL (>40); LDL Cholesterol Calculated 152 mg/dL (<100); Potassium 3.9 mmol/L (3.3-5.1); Sodium 138 mmol/L (135-145); Triglycerides 60 mg/dL (<150)
[2023-09-24 13:17] LABS: Vitamin D 25-OH Total 24.8 ng/mL (>30)
== END 2023-09-24 10:56 | disposition home or self-care (01) ==
LOC: HO.XRAY 10:55
PROVIDERS: Absent Provider Registered Nurse; PCP Registered Nurse; Referring Provider Student in an Organized Health Care Education/Training Program; Visit Provider Anesthesiology
DX: M47.812 Spondylosis without myelopathy or radiculopathy, cervical region (principal); M25.511 Pain in right shoulder; E55.9 Vitamin D deficiency, unspecified; Z00.00 Encounter for general adult medical examination without abnormal findings
CPT/HCPCS: 36415; 73030; 80053; 80061; 82306; 99202

== ENCOUNTER 2023-09-24 10:55 | Outpatient (AMB) | payer OTHER, SELFPAY ==
--- NOTE | 2023-09-24 11:09 | A.OFFVIS_ITS ---
Vital Signs 09/24/23 11:13 Height 5 ft 3 in Weight 201 lb 2 oz BMI 35.6 BP 118/72 Blood Pressure Location Lt brachial Position Sitting Respiration 17 Pulse 78 Pulse Source Pulse Oximeter Pulse Oximetry (%) 96 Oxygen Delivery Method Room Air Intake Visit Reasons: LEFT SHOULDER PAIN Intake Note: Patient comes in for initial visit was referred by [facility]. Reports pain 08/23. Allergies divalproex sodium [From DEPAKOTE] Allergy (Unknown, Verified 09/24/23 11:16) FACIAL SWELLING, swelling of face pravastatin [PRAVASTATIN] Allergy (Unknown, Verified 09/24/23 11:16) MUSCLE ACHES, body aches 14-Count Warmer Allergy (Unknown, Uncoded 09/13/23 10:40) Unknown Referred by: Germania Mcbride MD HPI Comments Details: Dulce is very pleasant 43 years old female who presents in my office today with complains on pain in bilateral upper back and shoulder more on the right and less on the left. She reports this pain started more than 10 years ago. She reports that flexing forward and flexing backwards aggravate her pain but flexing backwards aggravates her pain more than flexing forward. She reports that because of her pain she can not sleep normally can not do activities of daily living she can not take care of herself and she can not function normally. 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 Weather changes in movements aggravate her pain and topical medications and oral medications make her pain better. She is taking tramadol and cyclobenzaprine prescribed by PCP. In terms of tissue damage he reports her pain as dull, sore, hurting, aching, heavy, tight, squeezing, tearing sensation. She reports that she had an MRI of the cervical spine results of which dictated as below. She never had x-ray of the shoulders. She reports normal mobility of the shoulder ability to bring the arm above the shoulder. She received physical therapy last year she reported no help at all from physical therapy. Received massage therapy during which she received infrared red laser application which helped her pain minimally. She received trigger point injections with previous provider. Now that she is diagnosed with osteoporosis and osteopenia the steroid injections are probably not a very good idea. Her past medical history significant for headaches, she is complaining on fatigue dizziness and fainting she had history of higher palpitations but now she has not suffering from this condition. She is under care of consumer insights intern. She is suffering from asthma and she has Johnson's esophagitis as well as GERD. She has widespread arthritis. She is under care of compensation business partner who is treating her for fibromyalgia. Past surgical history significant for history of breast implants in 2016, she had to leave biopsies in 2017 and she had 2 biopsies of the cervical lymph nodes non related to the cancer in 2020. She currently denies smoking cigarettes she states that she stopped it she denies drinking alcohol she does not use caffeinated beverages, she denies recreational drugs. [facility] Medical History Internal and external bleeding hemorrhoids Family history of polyps in the colon Rosacea Dysuria Urinary urgency Urge urinary incontinence Small bowel motility disorder Liver cyst Macromastia Shoulder pain Spondylosis of cervical spine Swelling Surgical History S/P dissection of cervical lymph nodes Status post laser ablation of incompetent vein History of bladder suspension procedure Family History Mother Colon polyps Social History Comment: counts correct Patient Tobacco Use Status: Never used Tobacco e-Cigarette/Vaping Use: Never Used Review of Systems ENT Reports Normal hearing present and Reports neck pain Card Reports no additional complaints Resp Reports no additional complaints GI Reports no additional complaints Reports no additional complaints Musc Reports myalgias, Reports arthralgias and Reports neck pain Neuro Reports Normal hearing present, Denies Abnormal speech present, Denies confusion and Denies Sensory deficit (Neuro) Psych Denies confusion Physical Exam Vital Signs: Last Vital Signs Pulse 78 09/24/23 11:13 Resp 17 09/24/23 11:13 BP 118/72 09/24/23 11:13 Pulse Ox 96 09/24/23 11:13 Oxygen Delivery Method Room Air 09/24/23 11:13 BMI result Body Mass Index 35.6 Const General: no acute distress; No confusion Orientation/consciousness: patient oriented x3 and No confusion Eyes General: appearance normal, both eyes and all related structures Pupils: Equal, round and reactive pupils present EOM: EOMs intact bilaterally Neck Other: There is significant tenderness on palpation in paraspinal regions on the right neck, axial compression aggravates the pain flexing had backwards aggravates the pain. Negative Spurling test negative Valsalva maneuver. Neck: Yes normal visual inspection Chest Chest palpation & inspection: normal inspection of the chest Resp Effort & Inspection: normal respiratory effort, able to speak in complete sentences, normal respiratory pattern, no audible wheezes and no cough Cardio Jugular venous distension: no JVD GI Inspection: Yes normal to inspection Neuro General: patient oriented x3, gait normal and No confusion Cranial nerves: Yes CN's II-XII intact bilaterally, Yes Equal, round and reactive pupils present, Yes Normal hearing present and Yes Ability to bilatera lly elevate shoulders present Speech: No Abnormal speech present Gait exam (Neuro): Normal gait present Motor exam (neuro): 5/5 motor strength present throughout Sensory Exam: No Sensory deficit (Neuro) Extrem General: No pedal edema Psych Speech and movement: Normal speech and movement present Affect: normal affect Attitude: cooperative Thought process: Normal thought process present Thought content: Normal thought content present Insight: Good insight present (Psych) Judgement: Good judgement present (Psych) Results Reviewed Results Reviewed: MR CERVICAL SPINE WITHOUT CONTRAST 2021 FINDINGS: Alignment: Normal. No spondylolisthesis. Craniocervical Junction/C1-C2 Articulations: Slight retrolisthesis of the left C1-C2 facet joint, stable in appearance. Atlantooccipital joints are intact and aligned. Visualized Intracranial Structures: The cerebellar tonsils project approximately 5 mm below the level of the plane of the foramen magnum. Given the appearance, the findings are more consistent with cerebellar tonsillar ectopia rather than a Chiari I malformation as there is no significant tonsillar pegging or cervicomedullary kinking. Otherwise unremarkable. Vertebral Bodies: Vertebral body heights are well maintained, stable in appearance. Disc Spaces and Endplates: There is ragr-cy-phahfosf disc volume loss at C5-C6, with disc desiccation, stable in appearance. Minor anterior marginal endplate spurring is noted at this level, stable in appearance. The remaining cervical intervertebral discs demonstrate normal height and signal with no significant spondylosis. Endplates appear intact. Bone Marrow: No significant marrow-replacing process or bone marrow edema. C2-C3: No disc herniation, DJD, canal or neural foraminal stenosis, stable in appearance. C3-C4: Small central disc protrusion with minimal indentation of the ventral thecal sac, stable in appearance, without cord impingement or canal stenosis. Minor facet spurring and left-sided uncinate process spurring, stable in appearance, with mild left-sided neural foraminal narrowing, unchanged. C4-C5: Normal disc contour. No disc herniation or canal stenosis. No significant DJD or neural foraminal stenosis. C5-C6: Broad-based disc protrusion noted, slightly asymmetric to the right, with [id number] flattening of the ventral dural sac without cord impingement, similar to previous exam, without significant canal stenosis. Mild uncovertebral spurring is noted bilaterally with mild right-sided neural foraminal stenosis, stable in appearance. C6-C7: No disc herniation or canal stenosis. Mild uncovertebral spurring noted on the left, stable in appearance, with minor left-sided foraminal narrowing, unchanged. C7-T1: No disc herniation or canal stenosis. No significant DJD or neural foraminal stenosis, stable in appearance. Spinal Cord: The cervical and visualized upper thoracic spinal cord is normal in morphology, caliber and signal intensity throughout. No interval change. Extracranial Soft Tissues: The visualized extracranial head/neck soft tissues are unremarkable within the limitations of the study. IMPRESSION: 1. No convincing evidence for Chiari I malformation. 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 2. Disc protrusions at C3-C4 and C5-C6, similar to the previous exam, with discogenic degenerative changes at C5-C6, stable in appearance, without cord impingement or canal stenosis. 3. Minor degrees of multilevel DJD with mild right-sided neural foraminal stenosis at C5-C6, minimal left-sided foraminal stenosis at C6-C7 and mild left-sided neural foraminal stenosis at C3-C4 without neural impingement. Assessment & Plan Assessment & Plan (1) Right shoulder pain: Code(s): M25.511 - Pain in right shoulder Category: Medical (2) Spondylosis of cervical spine: Code(s): M47.812 - Spondylosis without myelopathy or radiculopathy, cervical region Category: Medical Plan There is no major changes on the MRI of this patient short of some disc degenerative disc disease as well as facet arthropathy. To rule out potential pathology of the shoulder I will send the patient for shoulder x-ray today. I will see the patient in 20 days. If her shoulder pathology will not be very prominent I will offer her right-sided medial branch block C4-C5 C6 diagnostic . If diagnostic test is positive I would offer her probably sprint PNS to treat her pain. Orders: Orders XR shoulder RT min 2V Today M25.511 - Pain in right shoulder Coding Level of Care Code New Pt Level 3 (11538) Diagnoses Right shoulder pain M25.511 Spondylosis of cervical spine M47.812
[2023-09-24 11:13] VITALS: BP 118/72; PULSE 78; RESP 17; O2SAT 96; BMI 35.6
== END 2023-09-24 12:12 | disposition home or self-care (01) ==
PROVIDERS: PCP Registered Nurse; Referring Provider Student in an Organized Health Care Education/Training Program; Visit Provider Anesthesiology
DX: M25.511 Pain in right shoulder (principal); M47.812 Spondylosis without myelopathy or radiculopathy, cervical region
CPT/HCPCS: 99203

== ENCOUNTER 2023-10-05 09:25 | Outpatient (REF) | payer OTHER, SELFPAY ==
--- NOTE | ~2023-10-05 | US_ITS ---
EXAMINATION: MM DIAGNOSTIC DIGITAL BREAST TOMOSYNTHESIS, BILATERAL US BREAST LIMITED, BILATERAL CLINICAL INFORMATION: 43-year-old female complaining of left greater than right axillary pain with mild left axillary swelling. Of note, patient had the pneumonia vaccine on the left 09/20 and her symptoms began on 09/25/2023. Patient states some improvement now. Patient has bilateral implants. History of breast cancer in maternal grandmother, unknown age. COMPARISON: (Prior mammography at [place]) Mammography: 03/20/2023, 03/14/2022, 03/01/2021, 01/07/2018, and dating back to 2016 (baseline at [facility]). TECHNIQUE: Digital mammography is performed in craniocaudal and mediolateral oblique views. Digital breast tomosynthesis is performed in implant-displaced craniocaudal and implant-displaced mediolateral oblique views. Synthesized 2D images are generated from the tomosynthesis. Computer-aided detection (CAD) is performed for this exam. FINDINGS: There are scattered areas of fibroglandular density (ACR BI-RADS breast composition Category b). The implant contours are unremarkable. There are no significant masses, abnormal calcifications, or other abnormalities. There are bilateral skin calcifications. No axillary abnormalities or adenopathy is identified on either side. ULTRASOUND: CLINICAL INFORMATION: As above. COMPARISON: None TECHNIQUE: Targeted sonographic evaluation was performed using a high frequency linear transducer. Examination of both axillary regions was performed. Selected archived documentation. FINDINGS: RIGHT AXILLA: There are normal-appearing lymph nodes. There is no pathologic lymph node, mass, or abnormal shadowing. No cystic abnormalities. LEFT AXILLA: There are normal-appearing lymph nodes. There is no pathologic lymph node, mass, or abnormal shadowing. No cystic abnormalities. US/US breast BI limited mamm only IMPRESSION: -There are no findings in either breast suspicious for malignancy. There is no implant complication. Stable examination. -There is no abnormality or pathologic lymphadenopathy in either axillary region. Only reactive appearing normal nodes are seen. Recommend clinical management of the patient's complaints. -Otherwise, recommend the patient return to routine annual screening mammography. OVERALL ASSESSMENT: Mammography: BI-RADS 2 - Benign Findings Ultrasound: BI-RADS 2 - Benign Findings RECOMMENDATION: 1. Patient should be managed based on the clinical impression. 2. Otherwise, routine annual screening mammography. This patient's information was entered into a reminder system with a target due date for their next mammogram.
== END 2023-10-05 09:26 | disposition home or self-care (01) ==
LOC: HO.MAMMO 09:25
PROVIDERS: PCP Student in an Organized Health Care Education/Training Program; Visit Provider Student in an Organized Health Care Education/Training Program
DX: M79.622 Pain in left upper arm (principal); M79.621 Pain in right upper arm; R22.32 Localized swelling, mass and lump, left upper limb
CPT/HCPCS: 76642; 77062; 77066

== ENCOUNTER → 2023-10-05 10:00 | Outpatient (BNV) | payer OTHER, SELFPAY | PROVIDERS: PCP Student in an Organized Health Care Education/Training Program; Visit Provider Radiology Diagnostic Radiology | DX: N64.4 Mastodynia (principal) | CPT/HCPCS: 76642; 77062; 77066 ==

== ENCOUNTER 2023-10-15 09:58 | Outpatient (AMB) | payer OTHER, SELFPAY ==
--- NOTE | 2023-10-15 10:19 | MHC.OFFVIS ---
Vital Signs 10/15/23 10:42 Height 5 ft 3 in Weight 203 lb BMI 36.0 BP 116/66 Blood Pressure Location Lt brachial Position Sitting Respiration 18 Pulse 79 Pulse Source Pulse Oximeter Pulse Oximetry (%) 94 Oxygen Delivery Method Room Air Intake Visit Reasons: 3 WEEK FOLLOW UP Intake Note: Patient comes in for 3 weeks follow-up. Reports pain 5/10. Allergies divalproex sodium [From DEPAKOTE] Allergy (Unknown, Verified 10/15/23 10:44) FACIAL SWELLING, swelling of face pravastatin [PRAVASTATIN] Allergy (Unknown, Verified 10/15/23 10:44) MUSCLE ACHES, body aches 14-Count Warmer Allergy (Unknown, Uncoded 09/13/23 10:40) Unknown HPI Comments Details: Dulce is back in my office after shoulder x-ray. Right shoulder x-ray demonstrated acromioclavicular joint pathology. The patient was offered acromioclavicular joint steroid injection in the right under x-ray guidance. The patient understood the nature of the procedure. I will schedule the patient for the procedure. Possibility exists that right-sided neck pain is separate entity and need to be treated with diagnostic injection at C4-C5 C6. Prior: C/o pain in bilateral upper back and shoulder more on the right and less on the left. pain started more than 10 years ago. 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 Weather changes in movements aggravate her pain and topical medications and oral medications make her pain better. She is taking tramadol and cyclobenzaprine prescribed by PCP. She had an MRI of the cervical spine results of which dictated as below. She never had x-ray of the shoulders. normal mobility of the shoulder, she has the ability to bring the arm above the shoulder. She received physical therapy last year she reported no help at all from physical therapy. Received massage therapy during which she received infrared red laser application which helped her pain minimally. She received trigger point injections with previous provider. Diagnosed with osteopenia. [facility] Medical History Internal and external bleeding hemorrhoids Family history of polyps in the colon Rosacea Dysuria Urinary urgency Urge urinary incontinence Small bowel motility disorder Liver cyst Macromastia Shoulder pain Spondylosis of cervical spine Swelling Surgical History S/P dissection of cervical lymph nodes Status post laser ablation of incompetent vein History of bladder suspension procedure Family History Mother Colon polyps Social History Comment: counts correct Patient Tobacco Use Status: Never used Tobacco e-Cigarette/Vaping Use: Never Used Review of Systems Const All systems reviewed & are unremarkable except as noted in HPI and below ENT Reports Normal hearing present Neuro Reports Normal hearing present, Denies Abnormal speech present, Denies confusion and Denies Sensory deficit (Neuro) Psych Denies confusion Physical Exam Vital Signs: Last Vital Signs Pulse 79 10/15/23 10:42 Resp 18 10/15/23 10:42 BP 116/66 10/15/23 10:42 Pulse Ox 94 10/15/23 10:42 Oxygen Delivery Method Room Air 10/15/23 10:42 BMI result Body Mass Index 36.0 Const General: no acute distress; No confusion Orientation/consciousness: patient oriented x3 and No confusion Eyes General: appearance normal, both eyes and all related structures Pupils: Equal, round and reactive pupils present EOM: EOMs intact bilaterally Neck Other: There is significant tenderness on palpation in paraspinal regions on the right neck, axial compression aggravates the pain flexing had backwards aggravates the pain. Negative Spurling test negative Valsalva maneuver. Neck: Yes normal visual inspection Chest Chest palpation & inspection: normal inspection of the chest Resp Effort & Inspection: normal respiratory effort, able to speak in complete sentences, normal respiratory pattern, no audible wheezes and no cough Cardio Jugular venous distension: no JVD GI Inspection: Yes normal to inspection Neuro General: patient oriented x3, gait normal and No confusion Cranial nerves: Yes CN's II-XII intact bilaterally, Yes Equal, round and reactive pupils present, Yes Normal hearing present and Yes Ability to bilaterally elevate shoulders present Speech: No Abnormal speech present Gait exam (Neuro): Normal gait present Motor exam (neuro): 5/5 motor strength present throughout Sensory Exam: No Sensory deficit (Neuro) Extrem Other: Tenderness on palpation in projection of the right AC joint. General: No pedal edema Psych Speech and movement: Normal speech and movement present Affect: normal affect Attitude: cooperative Thought process: Normal thought process present Thought content: Normal thought content present Insight: Good insight present (Psych) Judgement: Good judgement present (Psych) Results Reviewed Results Reviewed: Right Shoulder x-ray 09/24/2023: Mild degenerative changes in the acromioclavicular joint with joint space narrowing and hypertrophic change. Glenohumeral alignment is preserved. Bone mineralization is normal. No soft tissue calcifications appreciated adjacent to the humeral head. Assessment & Plan Assessment & Plan (1) Right shoulder pain: Code(s): M25.511 - Pain in right shoulder Category: Medical (2) Spondylosis of cervical spine: Code(s): M47.812 - Spondylosis without myelopathy or radiculopathy, cervical region Category: Medical Plan There is no major changes on the MRI of this patient short of some disc degenerative disc disease as well as facet arthropathy. To rule out potential pathology of the shoulder I sent her for shoulder x-ray. AC joint arthritis is demonstrated. I will schedule her for AC joint intra-articular steroid injection. This is more joint and requires very minimal amount of injectate including small amount of steroids. If this will not be helpful I will consider a dressing C4-C5 C6 right-sided medial branch block to help her pain. Patient Instructions: I here by testify that I spent 30 minutes in conversation with this patient as well as planning her care and organizing this note. Coding Level of Care Code Est Pt Level 4 (09531) Diagnoses Right shoulder pain M25.511 Spondylosis of cervical spine M47.812
[2023-10-15 10:42] VITALS: BP 116/66; PULSE 79; RESP 18; O2SAT 94; BMI 36.0
== END 2023-10-15 10:53 | disposition home or self-care (01) ==
PROVIDERS: PCP Registered Nurse; Visit Provider Anesthesiology
DX: M25.511 Pain in right shoulder (principal); M47.812 Spondylosis without myelopathy or radiculopathy, cervical region
CPT/HCPCS: 99214

== ENCOUNTER → 2023-10-15 09:58 | Outpatient (BNVA) | payer OTHER, SELFPAY | PROVIDERS: PCP Registered Nurse; Visit Provider Anesthesiology | DX: M25.511 Pain in right shoulder (principal); M47.812 Spondylosis without myelopathy or radiculopathy, cervical region | CPT/HCPCS: 99212 ==

== ENCOUNTER 2024-01-09 09:00 | Outpatient (AMB) | payer OTHER, SELFPAY ==
--- NOTE | 2024-01-09 09:02 | A.OFFVIS_ITS ---
Vital Signs 01/09/24 09:07 Height 5 ft 3 in Weight 207 lb 2 oz BMI 36.7 BP 124/58 L Blood Pressure Location Lt brachial Position Sitting Respiration 16 Pulse 70 Pulse Source Pulse Oximeter Pulse Oximetry (%) 96 Oxygen Delivery Method Room Air Intake Visit Reasons: Discuss elbow pain Intake Note: Patient comes in to discuss elbow pain. Reports pain 6/10. Allergies divalproex sodium [From DEPAKOTE] Allergy (Unknown, Verified 01/09/24 09:09) FACIAL SWELLING, swelling of face pravastatin [PRAVASTATIN] Allergy (Unknown, Verified 01/09/24 09:09) MUSCLE ACHES, body aches 14-Count Warmer Allergy (Unknown, Uncoded 09/13/23 10:40) Unknown HPI Comments Details: Dulce is back in my office with yet another complaint. 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 I suspect this elbow. I will send her for physical therapy for this condition. Right shoulder x-ray demonstrated acromioclavicular joint pathology. The patient was offered acromioclavicular joint steroid injection in the right under x-ray guidance. The patient understood the nature of the procedure. Her insurance company finally approved the procedure. Today the patient will talked office staff and schedule her procedure. Possibility exists that right-sided neck pain is separate entity and need to be treated with diagnostic injection at C4-C5 C6. Prior: C/o pain in bilateral upper back and shoulder more on the right and less on the left. pain started more than 10 years ago. 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 Weather changes in movements aggravate her pain and topical medications and oral medications make her pain better. She is taking tramadol and cyclobenzaprine prescribed by PCP. She had an MRI of the cervical spine results of which dictated as below. She never had x-ray of the shoulders. normal mobility of the shoulder, she has the ability to bring the arm above the shoulder. She received physical therapy last year she reported no help at all from physical therapy. Received massage therapy during which she received infrared red laser application which helped her pain minimally. She received trigger point injections with previous provider. Diagnosed with osteopenia. [facility] Medical History Internal and external bleeding hemorrhoids Family history of polyps in the colon Rosacea Dysuria Urinary urgency Urge urinary incontinence Small bowel motility disorder Liver cyst Macromastia Shoulder pain Spondylosis of cervical spine Swelling Surgical History S/P dissection of cervical lymph nodes Status post laser ablation of incompetent vein History of bladder suspension procedure Family History Mother Colon polyps Social History Comment: counts correct Patient Tobacco Use Status: Never used Tobacco e-Cigarette/Vaping Use: Never Used Review of Systems Const All systems reviewed & are unremarkable except as noted in HPI and below ENT Reports Normal hearing present Neuro Reports Normal hearing present, Denies Abnormal speech present, Denies confusion and Denies Sensory deficit (Neuro) Psych Denies confusion Physical Exam Const General: no acute distress; No confusion Orientation/consciousness: patient oriented x3 and No confusion Eyes General: appearance normal, both eyes and all related structures Pupils: Equal, round and reactive pupils present EOM: EOMs intact bilaterally Neck Other: There is significant tenderness on palpation in paraspinal regions on the right neck, axial compression aggravates the pain flexing had backwards aggravates the pain. Negative Spurling test negative Valsalva maneuver. Neck: Yes normal visual inspection Chest Chest palpation & inspection: normal inspection of the chest Resp Effort & Inspection: normal respiratory effort, able to speak in complete sentences, normal respiratory pattern, no audible wheezes and no cough Cardio Jugular venous distension: no JVD GI Inspection: Yes normal to inspection Neuro General: patient oriented x3, gait normal and No confusion Cranial nerves: Yes CN's II-XII intact bilaterally, Yes Equal, round and reactive pupils present, Yes Normal hearing present and Yes Ability to bilaterally elevate shoulders present Speech: No Abnormal speech present Gait exam (Neuro): Normal gait present Motor exam (neuro): 5/5 motor strength present throughout Sensory Exam: No Sensory deficit (Neuro) Extrem Other: Tenderness on palpation in projection of the right AC joint. General: No pedal edema Psych Speech and movement: Normal speech and movement present Affect: normal affect Attitude: cooperative Thought process: Normal thought process present Thought content: Normal thought content present Insight: Good insight present (Psych) Judgement: Good judgement present (Psych) Assessment & Plan Assessment & Plan (1) Right shoulder pain: Code(s): M25.511 - Pain in right shoulder Category: Medical (2) Spondylosis of cervical spine: Code(s): M47.812 - Spondylosis without myelopathy or radiculopathy, cervical region Category: Medical (3) Right tennis elbow: Code(s): M77.11 - Lateral epicondylitis, right elbow Category: Medical Plan New problem she presented today with. It looks like tennis elbow on the right. Physical therapy will be initiated for this condition. There is no major changes on the MRI of this patient short of some disc degenerative disc disease as well as facet arthropathy. To rule out potential pathology of the shoulder I sent her for shoulder x-ray. AC joint arthritis is demonstrated. Finally her insurance approved the AC joint injection. If this will not be helpful I will consider a dressing C4-C5 C6 right-sided medial branch block to help her pain. Orders: Orders PT Evaluation and Treatment Today M77.11 - Lateral epicondylitis, right elbow Coding Level of Care Code Est Pt Level 3 (63556) Diagnoses Right shoulder pain M25.511 Spondylosis of cervical spine M47.812 Right tennis elbow M77.11
[2024-01-09 09:07] VITALS: BP 124/58; PULSE 70; RESP 16; O2SAT 96; BMI 36.7
== END 2024-01-09 09:17 | disposition home or self-care (01) ==
PROVIDERS: PCP Registered Nurse; Visit Provider Anesthesiology
DX: M25.511 Pain in right shoulder (principal); M47.812 Spondylosis without myelopathy or radiculopathy, cervical region; M77.11 Lateral epicondylitis, right elbow
CPT/HCPCS: 99213

== ENCOUNTER → 2024-01-09 09:00 | Outpatient (BNVA) | payer OTHER, SELFPAY | PROVIDERS: PCP Registered Nurse; Visit Provider Anesthesiology | DX: M77.11 Lateral epicondylitis, right elbow (principal); M25.511 Pain in right shoulder; M47.812 Spondylosis without myelopathy or radiculopathy, cervical region | CPT/HCPCS: 99212 ==

== ENCOUNTER 2024-01-11 11:02 | Outpatient (REF) | payer OTHER, SELFPAY ==
[2024-01-11 13:35] LABS: TSH reflex Free T4 1.31 uIU/mL (0.32-4.0)
== END 2024-01-11 11:03 | disposition home or self-care (01) ==
LOC: HO.LAB 11:02
PROVIDERS: PCP Registered Nurse; Visit Provider Nurse Practitioner
DX: K22.70 Barrett's esophagus without dysplasia (principal); K21.9 Gastro-esophageal reflux disease without esophagitis; R14.0 Abdominal distension (gaseous); K59.04 Chronic idiopathic constipation; R63.5 Abnormal weight gain
CPT/HCPCS: 36415; 84443; 99212

== ENCOUNTER 2024-01-11 11:02 | Outpatient (AMB) | payer OTHER, SELFPAY ==
--- NOTE | 2024-01-11 11:03 | A.OFFVIS_ITS ---
Vital Signs 01/11/24 11:08 Height 5 ft 3 in Weight 209 lb 7.026 oz BMI 37.1 BP 126/71 Blood Pressure Location Rt brachial Position Sitting Pulse 72 Intake Visit Reasons: CIC, SSBE, GERD Intake Note: Dulce presents to in office follow up of CIC. CC: Patient c/o waking up with nausea and fullness abdominal sensation. Denies having other GI symptoms today. 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: Comment: 2023 scope=SSBE repeat in 2 years Code(s): K22.70 - Johnson's esophagus without dysplasia Category: Medical (2) GERD (gastroesophageal reflux disease): Code(s): K21.9 - Gastro-esophageal reflux disease without esophagitis Category: Medical (3) Family history of colon cancer in mother: Comment: 2023 colonoscopy equals negative study repeat in 5 years Code(s): Z80.0 - Family history of malignant neoplasm of digestive organs Category: Medical (4) Chronic idiopathic constipation: Code(s): K59.04 - Chronic idiopathic constipation Category: Medical (5) Abdominal bloating: Code(s): R14.0 - Abdominal distension (gaseous) Category: Medical (6) Dizziness: Code(s): R42 - Dizziness and giddiness Category: Medical Plan [place] #declines She will be having hemorrhoid surgery later this month because her hemorrhoids became very large and swollen after the colonoscopy. She has been having intermittent very strong nausea and dizziness. She has a hx of ear problems with a similar presentation. This suddenly started over the past 3 days. The nausea is not causing nausea and ebbs and flows but is always there mildly. She was on meclizine in the past for this, I will refill this. She was rx'ed zof ran but since she needs reglan I advise against her taking both to prevent prolongation of the QR. I educate her about SSBE and that she needs pantoprazole BID always going forward. She is aware we need to repeat the EGD in 2 years. She wants to stay at 145 LIzness for now. She is also using senna etc because the 290 is too strong. Return office visit in 3 months Medications: Changed From meclizine 25 mg PO BEDTIME PRN Vertigo R42 - Dizziness and giddiness To meclizine 25 mg PO BID 60 tabs 6RF Vertigo R42 - Dizziness and giddiness From pantoprazole 40 mg PO DAILY 30 tabs 0RF K22.70 - Johnson's esophagus without dysplasia, K21.9 - Gastro-esophageal reflux disease without esophagitis To pantoprazole 40 mg PO BID 30 tabs 6RF K22.70 - Johnson's esophagus without dysplasia, K21.9 - Gastro-esophageal reflux disease without esophagitis Refilled simethicone after meals 180 mg PO .TIDAC 90 caps 6RF 30 days R14.0 - Abdominal distension (gaseous), K59.04 - Chronic idiopathic constipation metoclopramide HCl (Reglan) 10 mg PO TID 90 tabs 6RF K59.9 - Functional intestinal disorder, unspecified dicyclomine 20 mg PO QID 120 tabs 6RF 30 days R10.9 - Unspecified abdominal pain Discontinued linaclotide Discontinued Reason: Doctor's Order 72 mcg PO QAM 30 caps 3RF Resumed linaclotide (Linzess) 145 mcg PO QAM 30 caps 6RF K59.04 - Chronic idiopathic constipation, R14.0 - Abdominal distension (gaseous) TODAY'S VISIT [place] #declines She is having pre menopause sx and body aches. She asks if this is r/t the pantoprazole. I don't think so, but she could be having an atypical side effect. We discussed potentially lowering the dose to see if it makes a difference or changing the medication but she wants to keep it there for now. I did educate her about menopause and potential symptoms in the difficulty in diagnose thing it because of the fluctuating hormonal levels. However, I encouraged her to speak to her rug setter velvet because they will know if there is anymore accurate testing that can be done. Because she has been gaining weight I will run a thyroid study since this is easy. For now since a lot of her symptoms of bloating, gagging and nausea are occurring in the morning and will worsen throughout the day if she eats anything heavy, I think will add a 4th dose of metoclopramide 10 mg and will put her on a trial of Creon. If this does not work we may need to consider a gastric emptying study. Return office visit in 6 weeks [facility] Medical History Internal and external bleeding hemorrhoids Family history of polyps in the colon Rosacea Dysuria Urinary urgency Urge urinary incontinence Small bowel motility disorder Liver cyst Macromastia Shoulder pain Spondylosis of cervical spine Swelling Surgical History S/P dissection of cervical lymph nodes Status post laser ablation of incompetent vein History of bladder suspension procedure Family History Mother Colon polyps Social History Comment: counts correct Patient Tobacco Use Status: Never used Tobacco e-Cigarette/Vaping Use: Never Used Review of Systems Const Denies fatigue, Denies fever(s), Denies night sweats, Denies poor appetite and Denies weight loss ENT Reports Normal hearing present, Denies dental pain, Denies dysphagia, Denies hearing loss, Denies mouth pain, Denies odynophagia, Denies throat swelling, Denies tongue swelling and Reports other (Dentition adequate) Card Reports no additional complaints Resp Reports no additional complaints GI Details: Gagging in the morning Reports abdominal pain, Reports belching, Denies melena, Reports bloating, Denies hematochezia, Denies constipation, Reports GI cramping, Denies dysphagia, Denies excessive flatus, Denies early satiety, Reports heartburn, Denies diarrhea, Reports nausea, Denies odynophagia, Denies vomiting and Denies hematemesis Musc Reports back pain and Reports myalgias Skin/Breast Denies pruritus, Denies lesions, Denies rash and Denies jaundice Neuro Reports Normal hearing present and Denies Abnormal speech present Endo Denies fatigue Aller/Immun Denies throat swelling and Denies tongue swelling Physical Exam Vital Signs: Last Vital Signs Pulse 72 01/11/24 11:08 BP 126/71 01/11/24 11:08 BMI result Body Mass Index 37.1 Const General: cooperative, no acute distress, well developed and well groomed Nutritional Appearance: well nourished and obese Orientation/consciousness: oriented to person, oriented to place and oriented to time Limitations: No language barrier HEENT Head: Yes normocephalic and Yes atraumatic Eyes General: appearance normal, both eyes and all related structures Pupils: Equal, round and reactive pupils present Neck Neck: Yes normal visual inspection and Yes no lymphadenopathy Thyroid: Thyroid normal Resp Effort & Inspection: normal respiratory effort and able to speak in complete sentences Auscultation: clear to auscultation bilaterally Cardio Rate: regular rate Rhythm: regular rhythm Heart sounds: Normal, physiologic split S2 sound present Peripheral pulses: radial pulses present and posterior tibial pulses present GI Inspection: No distended, Yes Abdominal panniculus present and Yes obesity Palpation (GI): Soft to palpation, nontender, no guarding, not rigid and No hepatosplenomegaly present Percussion: Yes normal to percussion Auscultation: normal bowel sounds Rectal Exam - Female: deferred Skin General skin exam: no rashes or lesions noted, turgor normal, skin not dry, no jaundice, No spider nevi and no striae Rashes: no rashes Nails: normal Neuro General: oriented to person, oriented to place and oriented to time Cranial nerves: Yes Equal, round and reactive pupils present and Yes Normal hearing present Speech: No Abnormal speech present Extrem General: Yes normal to inspection, No clubbing, No cyanosis and No edema Psych Appearance: grossly normal and well kempt Mental Status: mental status grossly normal Speech and movement: Normal speech and movement present Affect: normal affect Attitude: cooperative Thought process: Normal thought process present and not confabulating Thought content: Normal thought content present Insight: Limited insight present (Psych) Judgement: Limited judgement present (Psych) Assessment & Plan Assessment & Plan (1) 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 She asks if this is r/t the pantoprazole. I don't think so, but she could be having an atypical side effect. We discussed potentially lowering the dose to see if it makes a difference or changing the medication but she wants to keep it there for now. I did educate her about menopause and potential symptoms in the difficulty in diagnose thing it because of the fluctuating hormonal levels. However, I encouraged her to speak to her rug setter velvet because they will know if there is anymore accurate testing that can be done. Because she has been gaining weight I will run a thyroid study since this is easy. For now since a lot of her symptoms of bloating, gagging and nausea are oc curring in the morning and will worsen throughout the day if she eats anything heavy, I think will add a 4th dose of metoclopramide 10 mg and will put her on a trial of Creon. If this does not work we may need to consider a gastric emptying study. 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
[2024-01-11 11:08] VITALS: BP 126/71; PULSE 72; BMI 37.1
== END 2024-01-11 12:12 | disposition home or self-care (01) ==
PROVIDERS: PCP Registered Nurse; Visit Provider Nurse Practitioner
DX: K22.70 Barrett's esophagus without dysplasia (principal); K21.9 Gastro-esophageal reflux disease without esophagitis; R14.0 Abdominal distension (gaseous); K59.04 Chronic idiopathic constipation; R63.5 Abnormal weight gain
CPT/HCPCS: 99213; G2211

== ENCOUNTER 2024-02-19 06:13 | Outpatient (REF) | payer OTHER, SELFPAY | END 2024-02-19 06:14 | disposition home or self-care (01) | LOC: CF 06:13 | PROVIDERS: Visit Provider Anesthesiology | DX: M19.011 Primary osteoarthritis, right shoulder (principal) | CPT/HCPCS: 20605; J2003; J2795; J3301; Q9967 ==

== ENCOUNTER 2024-02-19 09:18 | Outpatient (AMB) | payer OTHER, SELFPAY ==
--- NOTE | 2024-02-19 09:31 | A.OFFVIS_ITS ---
Vital Signs 02/19/24 09:54 02/19/24 09:55 Height 5 ft 3 in 5 ft 3 in Weight 209 lb 209 lb BMI 37.0 37.0 BP 121/69 128/69 Blood Pressure Location Lt brachial Lt brachial Position Sitting Sitting Respiration 16 16 Pulse 73 72 Pulse Source Pulse Oximeter Pulse Oximeter Pulse Oximetry (%) 99 98 Oxygen Delivery Method Room Air Room Air Comment pre-op post-op Intake Visit Reasons: RIGHT ACROMIOCLAVICULAR JOINT INJECTION Allergies divalproex sodium [From DEPAKOTE] Allergy (Unknown, Verified 02/19/24 09:55) FACIAL SWELLING, swelling of face pravastatin [PRAVASTATIN] Allergy (Unknown, Verified 02/19/24 09:55) MUSCLE ACHES, body aches 14-Count Warmer Allergy (Unknown, Uncoded 09/13/23 10:40) Unknown [facility] Medical History Internal and external bleeding hemorrhoids Family history of polyps in the colon Rosacea Dysuria Urinary urgency Urge urinary incontinence Small bowel motility disorder Liver cyst Macromastia Shoulder pain Spondylosis of cervical spine Swelling Surgical History S/P dissection of cervical lymph nodes Status post laser ablation of incompetent vein History of bladder suspension procedure Family History Mother Colon polyps Social History Comment: counts correct Patient Tobacco Use Status: Never used Tobacco e-Cigarette/Vaping Use: Never Used Physical Exam Vital Signs: Last Vital Signs Pulse 72 02/19/24 09:55 Resp 16 02/19/24 09:55 BP 128/69 02/19/24 09:55 Pulse Ox 98 02/19/24 09:55 Oxygen Delivery Method Room Air 02/19/24 09:55 BMI result Body Mass Index 37.0 Assessment & Plan Assessment & Plan (1) Right shoulder pain: Code(s): M25.511 - Pain in right shoulder Category: Medical (2) Arthritis of right acromioclavicular joint: Code(s): M19.011 - Primary osteoarthritis, right shoulder Category: Medical Plan Right acromioclavicular joint injection Informed consent was explained thoroughly to the patient.? All questions about benefits and risks for the procedure were answered. Patient came to the operating room and was positioned supine on the operating table.. The the area of the right shoulder was prepped with ChloraPrep prepped and draped with sterile utility towels.? C-arm was brought over the operating field and the picture of patient's right acromioclavicular joint was demonstrated on the screen. Under fluoroscopy guidance 25 gauge 1-1/2 inch needle was driven into the right acromioclavicular joint. When the tip of the needle was positioned in the projection of the silhouette of the joint injection of the treatment medicine comprising of 2 mL of ropivacaine 0.5% and 40 mg of triamcinolone was injected into the joint. Upon completion of the injections the needle was removed and Band-Aid was applied.? Upon completion of the injection patient was taken outside of the operating room to the recovery room where recovered uneventfully. Orders: Orders FL guidance in treatment room Today M25.511 - Pain in right shoulder Coding Level of Care Code Procedure Only Diagnoses Right shoulder pain M25.511 Arthritis of right acromioclavicular joint M19.011
[2024-02-19 09:54] VITALS: BP 121/69; PULSE 73; RESP 16; O2SAT 99; BMI 37.0
[2024-02-19 09:55] VITALS: BP 128/69; PULSE 72; RESP 16; O2SAT 98; BMI 37.0
== END 2024-02-19 09:54 | disposition home or self-care (01) ==
LOC: HO.PMCPRC 09:18
PROVIDERS: PCP Registered Nurse; Visit Provider Anesthesiology
DX: M25.511 Pain in right shoulder (principal); M19.011 Primary osteoarthritis, right shoulder
CPT/HCPCS: 20605; 77002

== ENCOUNTER 2024-02-28 11:51 | Outpatient (AMB) | payer OTHER, SELFPAY ==
--- NOTE | 2024-02-28 12:02 | A.OFFVIS_ITS ---
Vital Signs 02/28/24 12:19 Height 5 ft 3 in Weight 208 lb 8.917 oz BMI 36.9 BP 114/69 Blood Pressure Location Lt brachial Position Sitting Pulse 73 Intake Visit Reasons: 6 wks f/u bloating, SSBE Intake Note: Patient presents in follow up of abdominal bloating and SSBE. CC: Patient reports doing better with Creon but states that she is now more constipated. She has noticed that eating late and some type of foods gives her abdominal bloating, and needs to throw up. Sr. 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 She asks if this is r/t the pantoprazole. I don't think so, but she could be having an atypical side effect. We discussed potentially lowering the dose to see if it makes a difference or changing the medication but she wants to keep it there for now. I did educate her about menopause and potential symptoms in the difficulty in diagnose thing it because of the fluctuating hormonal levels. However, I enco uraged her to speak to her music education adjunct professor because they will know if there is anymore accurate testing that can be done. Because she has been gaining weight I will run a thyroid study since this is easy. For now since a lot of her symptoms of bloating, gagging and nausea are occurring in the morning and will worsen throughout the day if she eats anything heavy, I think will add a 4th dose of metoclopramide 10 mg and will put her on a trial of Creon. If this does not work we may need to consider a gastric emptying study. Return office visit in 6 weeks Orders: Orders TSH reflex Free T4 01/11/24 R63.5 - Abnormal weight gain Medications: New [id number]-[id number] 36,000-114,000- 180,000 unit (Creon) administer with meals and/or snacks 2 caps PO BID 120 caps 6RF Changed From metoclopramide HCl 10 mg PO TID 90 tabs 6RF K59.9 - Functional intestinal disorder, unspecified To metoclopramide HCl (Reglan) 10 mg PO QID 120 tabs 6RF K59.9 - Functional in testinal disorder, unspecified LABS: Laboratory Tests 01/11/24 12:00 TSH 1.31 TODAY'S VISIT [place] #declines She is much better in terms of the bloating with the creon. However, she is still having nausea, gastric pain with her largest meal in the pm, and fatigue with eating. And with discussion she is not taking the reglan scheduled qid, so this is ghe first change I would make. She was considering going on ozempic/wegovy for wt loss, but we discuss the possible drawbacks in terms of gastric motiltiy and her SSBE and she understands maltese may not be the best choice. ROV 8 weeks. [facility] Medical History Right tennis elbow Tennis elbow Spondylosis of cervical spine Family history of colon cancer in mother Internal and external bleeding hemorrhoids Family history of polyps in the colon Rosacea Dysuria Urinary urgency Urge urinary incontinence Small bowel motility disorder Liver cyst Macromastia Shoulder pain Spondylosis of cervical spine Swelling Surgical History S/P dissection of cervical lymph nodes Status post laser ablation of incompetent vein History of bladder suspension procedure Family History Mother Colon polyps Social History Comment: counts correct Patient Tobacco Use Status: Never used Tobacco e-Cigarette/Vaping Use: Never Used Review of Systems Const Denies fatigue, Denies fever(s), Denies night sweats, Denies poor appetite and Denies weight loss ENT Reports Normal hearing present, Denies dental pain, Denies dysphagia, Denies hearing loss, Denies mouth pain, Denies odynophagia, Denies throat swelling, Denies tongue swelling and Reports other (Dentition adequate) Card Reports no additional complaints Resp Reports no additional complaints GI Details: Denies abdominal pain, Denies melena, Reports bloating, Denies hematochezia, Denies constipation, Denies GI cramping, Denies dysphagia, Denies excessive flatus, Denies early satiety, Reports heartburn, Denies diarrhea, Denies nausea, Denies odynophagia, Denies vomiting and Denies hematemesis Skin/Breast Denies pruritus, Denies lesions, Denies rash and Denies jaundice Neuro Reports Normal hearing present and Denies Abnormal speech present Endo Denies fatigue Aller/Immun Denies throat swelling and Denies tongue swelling Physical Exam Vital Signs: Last Vital Signs Pulse 73 02/28/24 12:19 BP 114/69 02/28/24 12:19 BMI result Body Mass Index 36.9 Const General: cooperative, no acute distress, well developed and well groomed Nutritional Appearance: well nourished and obese Orientation/consciousness: oriented to person, oriented to place and oriented to time Limitations: No language barrier HEENT Head: Yes normocephalic and Yes atraumatic Eyes General: appearance normal, both eyes and all related structures Pupils: Equal, round and reactive pupils present Neck Neck: Yes normal visual inspection and Yes no lymphadenopathy Thyroid: Thyroid normal Resp Effort & Inspection: normal respiratory effort and able to speak in complete sentences Auscultation: clear to auscultation bilaterally Cardio Rate: regular rate Rhythm: regular rhythm Heart sounds: Normal, physiologic split S2 sound present Peripheral pulses: radial pulses present and posterior tibial pulses present GI Inspection: No distended, No Abdominal panniculus present and Yes obesity Palpation (GI): Soft to palpation, nontender, no guarding, not rigid and No hepatosplenomegaly present Percussion: Yes normal to percussion Auscultation: normal bowel sounds Rectal Exam - Female: deferred Skin General skin exam: no rashes or lesions noted, turgor normal, skin not dry, no jaundice, No spider nevi and no striae Rashes: no rashes Nails: normal Neuro General: oriented to person, oriented to place and oriented to time Cranial nerves: Yes Equal, round and reactive pupils present and Yes Normal hearing present Speech: No Abnormal speech present Extrem General: Yes normal to inspection, No clubbing, No cyanosis and No edema Psych Thought process: Normal thought process present and not confabulating Thought content: Normal thought content present Insight: Good insight present (Psych) Judgement: Good judgement present (Psych) Assessment & Plan Assessment & Plan (1) GERD (gastroesophageal reflux disease): Code(s): K21.9 - Gastro-esophageal reflux disease without esophagitis Category: Medical (2) Chronic idiopathic constipation: Code(s): K59.04 - Chronic idiopathic constipation Category: Medical (3) Abdominal bloating: Code(s): R14.0 - Abdominal distension (gaseous) Category: Medical (4) 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 However, she is still having nausea, gastric pain with her largest meal in the pm, and fatigue with eating. And with discussion she is not taking the reglan scheduled qid, so this is the first change I would make. She was considering going on ozempic/wegovy for wt loss, but we discuss the possible drawbacks in terms of gastric motiltiy and her SSBE and she understands maltese may not be the best choice. ROV 8 weeks Medications: Changed From [id number] 36,000-114,000- 180,000 unit administer with meals and/or snacks 2 caps PO BID 120 caps 6RF To ntshov-xrbymyzl-dlairqd 36,000-114,000- 180,000 unit (Creon) administer with meals and/or snacks 2 caps PO BID 120 caps 6RF Refilled linaclotide (Linzess) 145 mcg PO QAM 30 caps 6RF K59.04 - Chronic idiopathic constipation, R14.0 - Abdominal distension (gaseous) sennosides (senna) 25.8 mg (3 x 8.6 mg) PO BEDTIME 270 caps 6RF constipation 90 days K59.04 - Chronic idiopathic constipation simethicone after meals 180 mg PO .TIDAC 90 caps 6RF 30 days R14.0 - Abdominal distension (gaseous), K59.04 - Chronic idiopathic constipation metoclopramide HCl (Reglan) 10 mg PO QID 120 tabs 6RF K59.9 - Functional intestinal disorder, unspecified pantoprazole 40 mg PO BID 60 tabs 6RF K22.70 - Johnson's esophagus without dysplasia, K21.9 - Gastro-esophageal reflux disease without esophagitis Coding Level of Care Code Est Pt Level 3 (83330) Diagnoses GERD (gastroesophageal reflux disease) K21.9 Chronic idiopathic constipation K59.04 Abdominal bloating R14.0 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 K22.70
[2024-02-28 12:19] VITALS: BP 114/69; PULSE 73; BMI 36.9
== END 2024-02-28 13:26 | disposition home or self-care (01) ==
PROVIDERS: PCP Registered Nurse; Visit Provider Nurse Practitioner
DX: K21.9 Gastro-esophageal reflux disease without esophagitis (principal); K59.04 Chronic idiopathic constipation; R14.0 Abdominal distension (gaseous); K22.70 Barrett's esophagus without dysplasia
CPT/HCPCS: 99499

== ENCOUNTER 2024-03-10 08:48 | Outpatient (AMB) | payer OTHER, SELFPAY ==
--- NOTE | 2024-03-10 08:49 | MHC.OFFVIS ---
Vital Signs 03/10/24 08:53 Height 5 ft 3 in Weight 213 lb 2 oz BMI 37.7 BP 124/67 Blood Pressure Location Rt brachial Position Sitting Pulse 68 Pulse Source Pulse Oximeter Pulse Oximetry (%) 98 Oxygen Delivery Method Room Air Intake Visit Reasons: RIGHT ACROMIOCLAVICULAR JOINT INJECTION Intake Note: Pain today 06/23 Repairer Cylinder Heads Required: No Accompanied by: Self / Same As Patient Allergies divalproex sodium [From DEPAKOTE] Allergy (Unknown, Verified 03/10/24 08:54) FACIAL SWELLING, swelling of face pravastatin [PRAVASTATIN] Allergy (Unknown, Verified 03/10/24 08:54) MUSCLE ACHES, body aches 14-Count Warmer Allergy (Unknown, Uncoded 09/13/23 10:40) Unknown HPI Comments Details: Dulce is back in my office AFTER ACROMIOCLAVICULAR JOINT INJECTION ON THE RIGHT, she reports no help from this procedure. She did not go for physical therapy for the treatment of her tennis elbow. I gave her today [facility] PT card, she will give him a call start physical therapy for the elbow. She reports that she thinks that pain in his shoulder is mostly related to muscle spasms. I recommended her to take muscle relaxants and magnesium, she stated that she already takes magnesium complex and she already takes Flexeril as muscle relaxants. I recommended her to start physical therapy for tennis elbow when she will complete physical therapy and wants to continue with us she will give us a call and schedule an appointment. Prior: C/o pain in bilateral upper back and shoulder more on the right and less on the left. pain started more than 10 years ago. 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 Weather changes in movements aggravate her pain and topical medications and oral medications make her pain better. She is taking tramadol and cyclobenzaprine prescribed by PCP. She had an MRI of the cervical spine results of which dictated as below. She never had x-ray of the shoulders. normal mobility of the shoulder, she has the ability to bring the arm above the shoulder. She received physical therapy last year she reported no help at all from physical therapy. Received massage therapy during which she received infrared red laser application which helped her pain minimally. She received trigger point injections with previous provider. Diagnosed with osteopenia. 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 History of bladder suspension procedure Family History Mother Colon polyps Social History Comment: counts correct Patient Tobacco Use Status: Never used Tobacco e-Cigarette/Vaping Use: Never Used Review of Systems Const All systems reviewed & are unremarkable except as noted in HPI and below ENT Reports Normal hearing present Neuro Reports Normal hearing present, Denies Abnormal speech present, Denies confusion and Denies Sensory deficit (Neuro) Psych Denies confusion Physical Exam Vital Signs: Last Vital Signs Pulse 68 03/10/24 08:53 BP 124/67 03/10/24 08:53 Pulse Ox 98 03/10/24 08:53 Oxygen Delivery Method Room Air 03/10/24 08:53 BMI result Body Mass Index 37.7 Const General: no acute distress; No confusion Orientation/consciousness: patient oriented x3 and No confusion Eyes General: appearance normal, both eyes and all related structures Pupils: Equal, round and reactive pupils present EOM: EOMs intact bilaterally Neck Other: There is significant tenderness on palpation in paraspinal regions on the right neck, axial compression aggravates the pain flexing had backwards aggravates the pain. Negative Spurling test negative Valsalva maneuver. Neck: Yes normal visual inspection Chest Chest palpation & inspection: normal inspection of the chest Resp Effort & Inspection: normal respiratory effort, able to speak in complete sentences, normal respiratory pattern, no audible wheezes and no cough Cardio Jugular venous distension: no JVD GI Inspection: Yes normal to inspection Neuro General: patient oriented x3, gait normal and No confusion Cranial nerves: Yes CN's II-XII intact bilaterally, Yes Equal, round and reactive pupils present, Yes Normal hearing present and Yes Ability to bilaterally elevate shoulders present Speech: No Abnormal speech present Gait exam (Neuro): Normal gait present Motor exam (neuro): 5/5 motor strength present throughout Sensory Exam: No Sensory deficit (Neuro) Extrem Other: Tenderness on palpation in projection of the right AC joint. General: No pedal edema Psych Speech and movement: Normal speech and movement present Affect: normal affect Attitude: cooperative Thought process: Normal thought process present Thought content: Normal thought content present Insight: Good insight present (Psych) Judgement: Good judgement present (Psych) Assessment & Plan Assessment & Plan (1) Right shoulder pain: Code(s): M25.511 - Pain in right shoulder Category: Medical (2) Spondylosis of cervical spine: Code(s): M47.812 - Spondylosis without myelopathy or radiculopathy, cervical region Category: Medical Plan Tennis elbow was considered last time however patient did not go for physical therapy yet. Recommended short to go for physical therapy. Patient agreed to go today she was given a card from core PT. The acromioclavicular injection right did not help patient's pain. Patient thinks that her pain is mostly related to muscle spasms. She is already on Flexeril and magnesium complex. She also has potassium supplements. I will see this patient in my office as needed in the future. She needs to complete her physical therapy on tennis elbow. Coding Level of Care Code Est Pt Level 3 (54471) Diagnoses Right shoulder pain M25.511 Spondylosis of cervical spine M47.812
[2024-03-10 08:53] VITALS: BP 124/67; PULSE 68; O2SAT 98; BMI 37.7
== END 2024-03-10 09:31 | disposition home or self-care (01) ==
PROVIDERS: PCP Registered Nurse; Visit Provider Anesthesiology
DX: M25.511 Pain in right shoulder (principal); M47.812 Spondylosis without myelopathy or radiculopathy, cervical region
CPT/HCPCS: 99213

== ENCOUNTER → 2024-03-10 08:48 | Outpatient (BNVA) | payer OTHER, SELFPAY | PROVIDERS: PCP Registered Nurse; Visit Provider Anesthesiology | DX: M77.11 Lateral epicondylitis, right elbow (principal); M25.511 Pain in right shoulder; M47.812 Spondylosis without myelopathy or radiculopathy, cervical region | CPT/HCPCS: 99212 ==

== ENCOUNTER 2024-06-13 12:09 | Outpatient (REF) | payer OTHER, SELFPAY ==
--- NOTE | ~2024-06-13 | XR_ITS ---
EXAMINATION: XR FOOT, RIGHT CLINICAL INFORMATION: Chronic right heel pain COMPARISON: 05/29/2018. TECHNIQUE: AP, lateral, and oblique views of the right foot. FINDINGS: No fracture, dislocation, or suspicious bone lesion. Normal bone mineralization. Normal alignment. Joint spaces are preserved. No significant arthropathy. Normal plantar arch. Small to moderate-sized plantar calcaneal spur. Soft tissues appear normal. XR/XR foot RT min 3V IMPRESSION: 1. Small to moderate-sized plantar calcaneal spur. 2. Exam is otherwise normal. Electronically signed by: Jairo Mejia MD 06/13/2024 01:45 PM [facility]
--- OUTSIDE RECORDS SUMMARY | 2024-06-13 14:24 | XMS_ITS | Encounter Summary ---
Author Organization [employer] Address [address] [facility] 7[address] [place] [address] Care Team Providers Care Mortising Machine Operator Name Role Phone Karrie Fernandez [facility] Primary Care Provider [phone] Reason for Visit * Reason Comments Med Refill Encounter Details Date Type Department Care Team ([facility] st Contact Info) Description 02/01/2023 Refill [facility] [address] [place], [place] [phone] Macie Hook DO [address] [place] [address] Social History Tobacco Use Types Packs/Day Years Used Date Smoking Tobacco: Never Smokeless Tobacco: Never Alcohol Use Standard Drinks/Week Comments Never 0 (1 standard drink = 0.6 oz pur e alcohol) Comments Unknown Sex and Gender Information Value Date Recorded Sex Assigned at Female 02/13/2022 10:14 AM EDT Legal Sex Female 10:14 AM EDT Gender Identity Female 02/13/2022 10:14 AM EDT Sexual Orientation Straight 02/13/2022 10 :14 AM EDT documented as of this encounter Plan of Treatment Not on file documented as of this encounter Visit Diagnoses Not on filedocumented in this encounter Care Teams Mortising Machine Operator Relationship Specialty Start Date End Date Karrie Fernandez FNP [address] [place] [address] PCP - General Family Medicine 01/12/21 documented as of this encounter
--- OUTSIDE RECORDS SUMMARY | 2024-06-13 14:24 | XMS_ITS | Encounter Summary ---
Author Organization [email or web address] Address [address] [facility] 7t [place] [address] Care Team Providers Care Recovery Auditor Name Role Phone [facility] Primary Care Provider [phone] Reason for Visit * Reason Onset Date Comments Nurse Triage 06/09/2024 Encounter Details Date Type Department Care Team ([facility] st Contact Info) Description 06/09/2024 Telephone [facility] [address] [place], [place] [phone] [facility] [address] [place] [address] Nurse Triage Social History Tobacco Use Types Packs/Day Years Used Date Smoking Tobacco: Never Smokeless Tobacco: Never Alcohol Use Standard Drinks/Week Comments Never 0 (1 standard drink = 0.6 oz pur e alcohol) Depression Answer Date Recorded Patient Health Questionnaire-9 Score 0 09/21/2023 Patient Health Questionnaire-9 Score 0 09/21/2023 Last PHQ-9: Questionnaire Data Not on file 0 09/21/2023 Housing Stability Answer Date Recorded What is your housing situation today? I have ye fontanez 09/21/[address] you li ve. Do you have problems with any of the following? None of the above 09/21/2023 Food Insecurity Answer Date Recorded Within the past 12 months, y ou worried that your food would run out before you got money to buy more: Never True 09/21/2023 Within the past 12 months,th e food you bought just didn't last and you didn't have enough money to get more: Never True 10/2023 Transportation Answer Date Recorded In the past 12 months, has l ack of transportation kept you from medical appts, meetings, work or from getting things needed for daily living? No 09/21/2023 Utilities Answer Date Recorded In the past 12 months, has t he electric, gas, oil or water company threatened to shut off services in your home? No 09/21/2023 Depression Answer Date Recorded Patient Health Questionnaire-2 Score 0 09/21/2023 Comments Unknown Sex and Gender Information Value Date Recorded Sex Assigned at Female 02/13/2022 10:14 AM EDT Legal Sex Female 10:14 AM EDT Gender Identity Female 02/13/2022 10:14 AM EDT Sexual Orientation Straight 02/13/2022 10 :14 AM EDT documented as of this encounter Miscellaneous Notes * Telephone Encounter - Mercedes Hurley RN - 06/09/2024 3:46 PM EST Triage call to Pt. 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 Pt has found white patches on the epiglottis . Pt denies sore throat, fever, cough. No discomfort from these patches but, is concerned as to whether this could be a fungal infection of some sort. Pt is advised to increase liquids to 64 oz daily, warm drinks decaf tea, broth. Pt agrees with disposition. ASK with PCP 06/13/24 @ 1100am. Insurance is verified as active prior to booking. Protocol Used: Mouth Symptoms (Adult) Protocol-Based Disposition: See in Office or Video Visit within 2 Weeks Video visit not offered Positive Triage Question: * All other mouth symptoms (Exceptions: Dry mouth from not drinking enough liquids, chapped lips.) * All higher-acuity triage questions were negative Care Advice Discussed: * Reasons To Call Back - Chapped lips not better after 3 days of home treatment - You become worse * Telephone Encounter - Ruddy Goodwin - 06/09/2024 3:26 PM EST Symptom: Sore Throat Outcome: Schedule an appointment to be seen within 24 hours Reason: Caller denied all higher acuity questions (White Spots on her throat) The caller accepted this outcome. Contact pt at [phone] documented in this encounter Plan of Treatment Not on file documented as of this encounter Visit Diagnoses Diagnosis Johnson's esophagus with dysplasia documented in this encounter Additional Health Concerns Assessment Noted Time PHQ-9 Depression Total Score: 0 09/21/19 24 9:42 AM EDT documented as of this encounter Care Teams Recovery Auditor Relationship Specialty Start Date End Date Karrie Fernandez FNP [address] [place] [address] PCP - General Family Medicine 01/12/21 documented as of this encounter
--- OUTSIDE RECORDS SUMMARY | 2024-06-13 14:24 | XMS_ITS | Encounter Summary ---
Author Organization [employer] Address [address] [facility] 7[address] [place] [address] Care Team Providers Care Coil Spring Assembler Name Role Phone [facility] Primary Care Provider [phone] Reason for Visit * Reason Comments Med Refill Encounter Details Date Type Department Care Team ([facility] st Contact Info) Description 02/21/2023 Refill [facility] [address] [place] [address] Sixto Reno DDS [address] [place] [address] Erosion of teeth, 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 Social History Tobacco Use Types Packs/Day Years [...] encounter Miscellaneous Notes * Telephone Encounter - Sixto Reno DDS - 02/22/2023 4:11 PM EST Approving, but needs appt for additional refills. documented in this encounter Plan of Treatment Not on file documented as of this encounter Visit Diagnoses Diagnosis Erosion of teeth, 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 documented in this encounter Care Teams Coil Spring Assembler Relationship Specialty Start Date End Date Rebecca APRYL Yoon [address] [place] [address] PCP - General Family Medicine 01/12/21 documented as of this encounter
--- OUTSIDE RECORDS SUMMARY | 2024-06-13 14:24 | XMS_ITS | Encounter Summary ---
Author Organization [employer] Address [address] [facility] 7t [place] [address] Care Team Providers Care Shipping Agent Name Role Phone [place] [facility] Primary Care Provider [phone] Encounter Details Date Type Department Care Team (Latest Contact Info) Description 06/13/2024 Travel Social History Tobacco Use Types Packs/Day Years [...] Diagnoses Not on filedocumented in this encounter Additional Health Concerns Assessment Noted Time PHQ-9 Depression Total Score: 0 09/21/19 24 9:42 AM EDT documented as of this encounter Care Teams Shipping Agent Relationship Specialty Start Date End Date Karrie Fernandez FNP [address] [place] [address] PCP - General Family Medicine 01/12/21 documented as of this encounter
--- OUTSIDE RECORDS SUMMARY | 2024-06-13 14:24 | XMS_ITS | Encounter Summary ---
Author Organization [employer] Address [address] [facility] 7t [place] [address] Care Team Providers Care Reservations Agent Name Role Phone Karrie Fernandez [facility] Primary Care Provider [phone] Encounter Details Date Type Department Care Team ([facility] st Contact Info) Description 06/13/2024 11:00 AM EST Office Visit [facility] [address] [place], [place] [phone] Karrie Fernandez [facility] [address] [place] [address] Chronic heel pain, right (Primary Dx); Encounter for immunization Social History Tobacco Use Types Packs/Day Years [...] AM EDT documented as of this encounter Last Filed Vital Signs Vital Sign Reading Time Taken Comments Blood Pressure 118/76 06/13/2024 11:15 AM EST Pulse 93 06/13/2024 11:15 AM EST Temperature 36.5 ??C (97.7 ??F) 06/13/2024 11:[address] Respiratory Rate 16 06/13/2024 11:15 AM EST Oxygen Saturation - - Inhaled Oxygen Concentration - - Weight 96.3 kg (212 lb 6.4 oz) 06/13/2024 11:15 AM EST Height 160 cm (5' 3 ) 06/13/2024 11:15 AM EST Body Mass Index 37.62 06/13/2024 11:15 AM EST documented in this encounter Plan of Treatment Not on file documented as of this encounter Procedures Procedure Name Priority Date/Time Associated Diagnosis Comments XR FOOT 3+ VIEWS RIGHT Routine 06/13/2024 12:11 PM EST Chronic heel pain, right POCT RAPID STREP A Routine 06/13/2024 11 :41 AM EST Chronic heel pain, right documented in this encounter Results * XR Foot 3+ Views Right (06/13/2024 12:11 PM EST) Anatomical Region Laterality Modality Lower Extremities, Foot Right Radiogra phic Imaging 06/13/2024 12:1 1 PM EST Narrative 06/13/2024 1:48 PM EST ?[facility] ?[address] ?[place] [address] ?XRay Report ? Signed ? Patient: Lacy,Dulce E ?MR#: [id number] ?? [id number] ? : 1980 ?Acct:[id number] ? Age/Sex: 44 / F ?ADM Date: 06/13/24 ? Loc: HO.HHCX ? Attending Dr: Karrie Fernandez RD MECHANICAL ENGINEER ? Ordering Physician: Karrie Fernandez ?? Date of Service: 06/13/24 ?? Procedure(s): XR foot RT min 3V ?? Accession Number(s): [id number] ? cc: Karrie Fernandez RD MECHANICAL ENGINEER ? EXAMINATION: ?? XR FOOT, RIGHT ? CLINICAL INFORMATION: ?? Chronic right heel pain ? COMPARISON: ?? 05/29/2018. ? TECHNIQUE: ?? AP, lateral, and oblique views of the right foot. ? FINDINGS: ?? No fracture, dislocation, or suspicious bone lesion. Normal bone ?? mineralization. ?? Normal alignment. ?? Joint spaces are preserved. No significant arthropathy. ?? Normal plantar arch. ?? Small to moderate-sized plantar calcaneal spur. ? Soft tissues appear normal. ? XR/XR foot RT min 3V ?? IMPRESSION: ?? 1. Small to moderate-sized plantar calcaneal spur. ?? 2. Exam is otherwise normal. ? Electronically signed by: ??Jairo Mejia MD ??06/13/2024 01:45 PM EST RP ? Dictated By: ?Jairo Mejia MD ? Signed By: ?<Electronically signed by Jairo Mejia MD in OV> ?06/13/24 1345 ? DD/ 1211 ? TD/TT: 06/13/24 1215 ? Tractor Trailer Driver: ? Procedure Note Lucio Garcia - 06/13/[address] [address] XRay Report Signed Patient: Dulce Lacy EMR#: [id number] : 1980Acct:[id number] Age/Sex: 44 / FADM Date: 06/13/24 Loc: HO.HHCX Attending Dr: Karrie Fernandez RD MECHANICAL ENGINEER Ordering Physician: Karrie FernandezP Date of Service: 06/13/24 Procedure(s): XR foot RT min 3V Accession Number(s): [id number] cc: Karrie Fernandez [facility] EXAMINATION: XR FOOT, RIGHT CLINICAL INFORMATION: Chronic right heel pain COMPARISON: 05/29/2018. TECHNIQUE: AP, lateral, and oblique views of the right foot. FINDINGS: No fracture, dislocation, or suspicious bone lesion. Normal bone mineralization. Normal alignment. Joint spaces are preserved. No significant arthropathy. Normal plantar arch. Small to moderate-sized plantar calcaneal spur. Soft tissues appear normal. XR/XR foot RT min 3V IMPRESSION: 1. Small to moderate-sized plantar calcaneal spur. 2. Exam is otherwise normal. Electronically signed by: Jairo Mejia MD 06/13/2024 01:45 PM EST RP Dictated By: Jairo Mejia MD Signed By: <Electronically signed by Jairo Mejia MD in OV> 06/13/24 1345 DD/ 1211 TD/TT: 06/13/24 1215 Tractor Trailer Driver: [facility] IMG XR PROCEDURES Final Resul t * POCT rapid strep A manually resulted (06/13/2024 11:41 AM EST) Rapid Strep A Screen Negative Negative, None Detected Swab 06/13/2024 11:4 1 AM EST [facility] POINT OF CARE TEST ENTER/EDIT ORDERABLES Final Result documented in this encounter Visit Diagnoses Diagnosis Chronic heel pain, right- Primary Encounter for immunization documented in this encounter Additional Health Concerns Assessment Noted Time PHQ-9 Depression Total Score: 0 09/21/19 24 9:42 AM EDT documented as of this encounter Care Teams Reservations Agent Relationship Specialty Start Date End Date Karrie Fernandez FNP [address] [place] [id number] PCP - General Family Medicine 01/12/21 documented as of this encounter
--- OUTSIDE RECORDS SUMMARY | 2024-06-13 14:24 | XMS_ITS | Encounter Summary ---
Author Organization [employer] Address [address] [facility] 7t [place] [address] Care Team Providers Care Retail Manager Name Role Phone [place] [facility] Primary Care Provider [phone] Reason for Visit * Reason Comments Med Refill Encounter Details Date Type Department Care Team ([facility] st Contact Info) Description 06/09/2024 Refill [facility] [address] [place] [address] Sixto Reno DDS [address] [facility] [place] [address] Erosion of teeth, 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 Social [...] encounter Miscellaneous Notes * Telephone Encounter - Faheem Oliver DMD - 06/13/2024 10:21 AM EST Approving, but needs appt for additional refills. documented in this encounter Plan of Treatment Not on file documented as of this encounter Visit Diagnoses Diagnosis Erosion of teeth, 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 documented in this encounter Additional Health Concerns Assessment Noted Time PHQ-9 Depression Total Score: 0 09/21/19 24 9:42 AM EDT documented as of this encounter Care Teams Retail Manager Relationship Specialty Start Date End Date Karrie Fernandez FNP [address] [place] [phone] PCP - General Family Medicine 01/12/21 documented as of this encounter
--- OUTSIDE RECORDS SUMMARY | 2024-06-13 14:25 | XMS_ITS | Encounter Summary ---
Author Organization [employer] Address [address] [facility] [address]t [place] [address] Care Team Providers Care Sleeping Room Cleaner Name Role Phone [facility] Primary Care Provider [phone] Reason for Visit * Reason Comments Med Refill Encounter Details Date Type Department Care Team ([facility] st Contact Info) Description 06/09/2024 Refill [facility] [address] [place], [place] [phone] [facility] [address] [place] [address] Chronic pain disorder Social History Tobacco Use Types Packs/Day Years [...] as of this encounter Visit Diagnoses Diagnosis Chronic pain disorder Chronic pain syndrome documented in this encounter Additional Health Concerns Assessment Noted Time PHQ-9 Depression Total Score: 0 09/21/19 24 9:42 AM EDT documented as of this encounter Care Teams Sleeping Room Cleaner Relationship Specialty Start Date End Date Karrie Fernandez FNP [address] [place] [address] PCP - General Family Medicine 01/12/21 documented as of this encounter
--- OUTSIDE RECORDS SUMMARY | 2024-06-13 14:25 | XMS_ITS | Clinical Summary ---
Author Organization [address] Address [address] [place] [phone] Phone Care Team Providers Care Assistant Attorney General Name Role Phone Ed Mario MD Primary Care Provi percy Allergies Active Allergy Reactions Criticality Noted Date Comments Divalproex 06/05/2017 Pravastatin Weakness 12/06/2020 Medications cholecalciferol (VITAMIN D-3) 50 mcg (2,000 unit) capsule Take 1 tablet by mouth daily. 0 Active levonorgestreL (Mirena) 21 mcg/24hr (up to 8 yrs) 52 mg IUD by Intrauterine route continuous. 1 Active metroNIDAZOLE (METROGEL) 0.75 % (37.5mg/5 gram) vaginal gel 1 full applicator for 5days at bedtime 0 Active OMEPRAZOLE ORAL Take by mouth. Active tramadol HCl (TRAMADOL ORAL) TRAMADOL HCL OR: Take by mouth Active Symbicort 80-4.5 mcg/actuation inhaler Inhale 2 puffs by mouth 2 (two) times a day. 4 Active Linzess 145 mcg capsule Take 1 capsule (145 mcg total) by mouth 1 (one) time each day in the morning. Active Creon 36,000-114,000- 180,000 unit capsule,delayed release(DR/EC) TAKE 2 CAPSULES BY MOUTH TWICE DAILY WITH MEALS OR SNACKS 4 Active meloxicam (MOBIC) 15 mg tablet Take 1 tablet (15 mg total) by mouth 1 (one) time each day. 4 Active nortriptyline (PAMELOR) 25 mg capsule 4 Active pantoprazole (PROTONIX) 40 mg EC tablet Take 1 tablet (40 mg total) by mouth 2 (two) times a day. Active senna 8.6 mg tablet TAKE 3 TABLETS BY MOUTH AT BEDTIME FOR CONSTIPATION Active simethicone (MYLICON,GAS-X) 180 mg capsule Take 1 capsule (180 mg total) by mouth 3 (three) times a day. Active tiZANidine (ZANAFLEX) 4 mg tablet TAKE 1 TABLET BY MOUTH AT BEDTIME NEEDED FOR MUSCLE PASTICITY 2 Active venlafaxine XR (EFFEXOR-XR) 75 mg 24 hr capsule Take 1 capsule (75 mg total) by mouth 1 (one) time each day. with food Active Active Problems Problem Noted Date Diagnosed Date Disc disease, degenerative, cervical 10/23/2023 Axillary pain, left 09/28/2023 Depression 09/23/2023 Incontinence 09/23/2023 Overview (06/12/2024): Patient with history of pubovaginal sling d/t incontinence. Other chronic pain 09/23/2023 Overview (06/12/2024): - Pt has extensive history of vague neurological complaints including dizziness, numbness/weakness of right arm, and recurrent parotid gland swelling. She has seen multiple specialists including rhematology, ENT, cardiology, and vascular all with unremarkable work up. Johnson's esophagus with dysplasia 09/21/2023 Swelling of both parotid glands 04/12/2021 Overview (06/12/2024): Recurrent. Biopsy 08/2019 unremarkable Chiari malformation type I 03/17/2021 Overview (06/12/2024): Differing MRI reports Seen by neurology Most recent MRI 05/2023 with the following results: Cervical MRI 01/2022 1. No convincing evidence for Chiari I malformation. 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 2. Disc protrusions at C3-C4 and C5-C6, similar to the previous exam, with discogenic degenerative changes at C5-C6, stable in appearance, without cord impingement or canal stenosis. 3. Minor degrees of multilevel DJD with mild right-sided neural foraminal stenosis at C5-C6, minimal left-sided foraminal stenosis at C6-C7 and mild left-sided neural foraminal stenosis at C3-C4 without neural impingement. 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 Echo 2016 with trace mitral/tricuspid/aortic regurgitation. Last seen by [facility] cardiology 02/2020. Obesity 09/12/2011 Encounters Date Type Department Care Team Description 04/23/2024 10:00 AM EST - 04/23/2024 11:59 PM [facility] Hospital Encounter [facility] Ultrasound [address] [place] [address] Presence of (intrauterine) contraceptive device Discharge Disposition: Home or Self Care from Last 3 Months Immunizations Name Administration Dates Next Due DTaP (Infanrix) 6wks to less than 7yo ,09/14/1980,1978,08/14 Hepatitis A Adult (Havrix; V aqta) 19yo and older 03/16/2021,01/28/2019 Hepatitis B Pediatric (Enger ix B; Recombivax HB) to less than 20 yo 12/30/2007,09/23/2007,08/23/2007 Influenza Quadravalent, MDCK , 0.5ml, preservative free (Flucelvax) 6mo and older 07/01/2019 Influenza Quadrivalent, 0.5m l, preservative free (Fluarix; FluLaval; Fluzone) ages 6mo and older (Afluria) 3yo and older 02/28/2022,03/16/2021,01/23/2020,01/22 Influenza trivalent, with pr eservative (Fluzone; Afluria) 6mo and older 01/26/2014 MMR, measles mumps and rubel la Live (Priorix; M-M-R II) 12mo and older 09/14/1990,09/15/1979 Meningococcal MCV4P 08/01/2018 OPV 06/15/1983, 1,1978,08/14 Pneumococcal conjugate 20 va lent (Prevnar 20, PCV 20) 2mo and older 09/21/2023 Td Tetanus diptheria (Tdvax) 7yo and older 08/06/2006 Tdap Tetanus diptheria acell ular pertussis (Boostrix; Adacel) 7yo and older 01/22/2017 Varicella live (Varivax) 12m o and older 09/23/2007,08/23/2007 Surgical History Surgery Date Site/Laterality Comments BELT ABDOMINOPLASTY PROCEDURE: HISTORICAL TUMMY TUCK OTHER SURGICAL HISTORY PROCEDURE: HI PREPARATION MOULAGE CUSTOM BREAST IMPLANT BREAST SURGERY Bilateral PROCEDURE: HI UNLISTED PROCEDURE BREAST; COMMENT: 2017 OTHER SURGICAL HISTORY 2018 Bilateral PROCEDURE: IMPLANT BREAST SILICONE/EQ Medical History Medical History Date Comments Abnormal cytological finding in specimen from cervix DX:Abnormal cytological find ing in specimen from cervix High cholesterol DX:High cholest denisa Arthritis DX:Arthritis Family History Medical History Relation Name Comments Other cancer Aunt ovarian cancer Diabetes Daughter Hypertension Daughter Diabetes Father Hypertension Father Diabetes Maternal Grandfather Arthritis Maternal Grandmother Breast cancer Maternal Grandmother Coronary artery disease Maternal Grandmother Arthritis Mother Colon polyps Mother Diabetes Mother Hypertension Mother Stroke Mother Arthritis Sister 1 Hypertension Sister 1 Other cancer Sister 1 Arthritis Sister 2 Relation Name Status Comments Aunt Daughter Father Maternal Grandfather Maternal Grandmother Mother Sister 1 Sister 2 Social History Tobacco Use Types Packs/Day Years Used Date Smoking Tobacco: Never Smokeless Tobacco: Never Alcohol Use Standard Drinks/Week Comments No 0 (1 standard drink = 0.6 oz pur e alcohol) Comments Unknown Sex and Gender Information Value Date Recorded Sex Assigned at Not on file Legal Sex Female 4:56 PM EST Gender Identity Not on file Sexual Orientation Not on file Obstetrics History Para Term AB IAB SAB Ectopic Multiple Livin g Live Births 4 3 3 1 1 Date Outcome GA Total Labor Labor/2nd/3rd Weight Sex Type Anes PTL Nicole A1 A5 Name Clin Term Term Term SAB Last Filed Vital Signs Vital Sign Reading Time Taken Comments Blood Pressure 114/68 01/28/2024 3:03 PM EDT Pulse 87 01/28/2024 3:03 PM EDT Temperature - - Respiratory Rate - - Oxygen Saturation - - Inhaled Oxygen Concentration - - Weight 95.3 kg (210 lb) 01/28/2024 3:03 PM EDT Height 160 cm (5' 3 ) 01/28/2024 3:03 PM EDT Body Mass Index 37.2 01/28/2024 3:03 PM EDT Plan of Treatment Upcoming Encounters Date Type Department Care Team (Late st Contact Info) Description 06/16/2024 9:45 AM EST Office Visit Obstetrics & Gynecology - [address] [id number] [place] [address] [place] [phone] Health Maintenance Due Date Last Done Comments Hepatitis B Vaccines (1 of 3 - 19+ 3-dose series) 1997 12/30/2007, 09/23/2007, 08/23/2007 Colorectal Cancer Screening: Colonoscopy 03/15/2022 Social Influencers of Health Screening 03/15/2022 COVID-19 Vaccine ( season) 2023 04/25/2021 Influenza Vaccine (#1) 2023 2, 03/16/2021, 01/23/2020, Additional history exists Cervical Cancer Screening: HPV 05/19/2024 05/19/2019 Depression Screening 09/20/2024 09/21/2023 Breast Cancer Screening 03/20/2025 03/20/20, 03/14/2022, 03/01/2021 DTaP,Tdap,and Td Vaccines (7 - Td or Tdap) 01/22/2027 01/22/2017, 08/06/2006, 06/15/1983, Additional history exists Cholesterol Screening (Lipid Panel) 09/23/2028 09/24/2023 IPV Vaccines Completed 06/15/1983, 06/04/1980, 1978, Additional history exists MMR Vaccines Completed 09/14/1990, 09/15/1979 Varicella Vaccines Aged Out 09/23/2007, 08/23/2007 No longer eligible based on patient's age to complete this topic Meningococcal ACWY Vaccine Aged Out 08/01/2018 N o longer eligible based on patient's age to complete this topic Hepatitis A Vaccines Aged Out 03/16/2021, 01/29/20 19 No longer eligible based on patient's age to complete this topic HIV Screening Completed 08/28/2022 Hepatitis C Screening Completed 08/28/2022 Pneumococcal Vaccine: Pediatrics (0 to 5 Years) and At-Risk Patients (6 to 64 Years) Aged Out 09/21/2023 No longer eligible based on patient's age to complete this topic HIB Vaccines Aged Out No longer eligi ble based on patient's age to complete this topic HPV Vaccines Aged Out No longer eligi ble based on patient's age to complete this topic Meningococcal B Vacine Aged Out No lo nger eligible based on patient's age to complete this topic RSV Immunization Patients Under 20 months Aged Out No longer eligible based on patient's age to complete this topic Procedures Procedure Name Priority Date/Time Associated Diagnosis Comments US PELVIS TRANSVAGINAL NON OB Routine 04/23/2024 10:48 AM EST Presence of (intrauterine) contraceptive device SCREENING MAMMOGRAPHY BI 2-VIEW BREAST INC CAD Routine 03/20/2023 10:35 AM EST Encounter for gynecological examination (general) (routine) without abnormal findings Encounter for screening mammogram for malignant neoplasm of breast HEPATITIS C SCREENING Routine 08/28/2022 HIV SCREENING Routine 08/28/2022 HPV Routine 05/19/2019 from Last 3 Months or Most Recently Relevant to Health Maintenance Results * US Pelvis Transvaginal Non OB (04/23/2024 10:48 AM EST) Anatomical Region Laterality Modality Body Ultrasound 04/30/2024 2:26 PM EST Impressions 04/30/2024 2:30 PM EST Impression: 1. IUD well-positioned. 2. Normal appearance of the ovaries for age. 3. Trace free fluid in the cul-de-sac, likely physiologic. Telerad NAVID ([id number]) -------- FINAL REPORT -------- Dictated By: Veronica Gifford Dictated Date: 04/30/2024 14:26 ET Assigned Physician: Veronica Gifford Reviewed and Electronically Signed By: Veronica Gifford Signed Date: 04/30/2024 14:30 ET Workstation ID: [id number] Transcribed By: Self Edit Transcribed Date: 04/30/2024 14:26 ET Narrative 04/30/2024 2:30 PM EST History: IUD check. Comparison: 02/12/24 Findings: Transvaginal imaging of the pelvis was performed. The uterus remains normal in size and configuration, measuring 9.4 cm in length by 5.0 cm in depth by 6.0 cm in width. The endometrial echocomplex measures 3 mm in thickness double layer. A hyperechoic foreign body within the endometrial cavity is consistent with a well-positioned IUD. Nabothian cysts are noted in the cervix. A trace amount of free fluid is present in the cul-de-sac. The right ovary measures 4.8 x 2.2 x 2.1 cm and contains a 1.5 cm simple cyst. There is an additional 2.1 x 1.6 x 1.5 cm cyst with an undulating margin suggesting a resolving cyst or corpus luteum. Normal vascular flow is seen within the ovary by Doppler. The left ovary measures 2.8 x 1.7 x 1.8 cm and contains a few small follicles. Normal vascular flow is demonstrated with Doppler. No adnexal masses are seen. Procedure Note Veronica Gifford MD - 04/30/2024 History: IUD check. Comparison: 02/12/24 Findings: Transvaginal imaging of the pelvis was performed. The uterus remains normal in size and configuration, measuring 9.4 cm inlength by 5.0 cm in depth by 6.0 cm in width. The endometrial echocomplexmeasures 3 mm in thickness double layer. A hyperechoic foreign body withinthe endometrial cavity is consistent with a well-positioned IUD. Nabothiancysts are noted in the cervix. A trace amount of free fluid is present in the cul-de-sac. The right ovary measures 4.8 x 2.2 x 2.1 cm and contains a 1.5 cm simplecyst. There is an additional 2.1 x 1.6 x 1.5 cm cyst with an undulatingmargin suggesting a resolving cyst or corpus luteum. Normal vascular flowis seen within the ovary by Doppler. The left ovary measures 2.8 x 1.7 x 1.8 cm and contains a few smallfollicles. Normal vascular flow is demonstrated with Doppler. No adnexal masses are seen. IMPRESSION: Impression: 1. IUD well-positioned. 2. Normal appearance of the ovaries for age. 3. Trace free fluid in the cul-de-sac, likely physiologic. Telerad NAVID ([id number]) -------- FINAL REPORT -------- Dictated By: Veronica Gifford Dictated Date: 04/30/2024 14:26 ET Assigned Physician: Veronica Gifford Reviewed and Electronically Signed By: Veronica Gifford Signed Date: 04/30/2024 14:30 ET Workstation ID: [id number] Transcribed By: Self Edit Transcribed Date: 04/30/2024 14:26 ET us Isatu Quijano CNM IMG US PROCEDURES Final Result * SCREENING MAMMOGRAPHY BI 2-VIEW BREAST INC CAD (03/20/2023 10:35 AM EST) Anatomical Region Laterality Modality Radiographic Chioma ging 03/14/2022 10:0 8 AM EST Narrative 03/20/2023 4:22 PM EST This is a summary report. The complete report is available in the patient's medical record. If you cannot access the medical record, please contact the sending organization for a detailed fax or copy. BILATERAL 3D DIGITAL SCREENING MAMMOGRAM History: Routine screening. ??No current breast complaints. ??Family history of breast cancer in grandmother Comparison: Multiple priors dating back to 03/01/2021 Technique: Bilateral full-field digital 3D mammography was performed using standard CC and MLO projections, bilateral implant displaced views CAD was used to evaluate this mammogram. Findings: Density: ??There are scattered areas of fibroglandular density-B RIGHT: No suspicious masses, groups of microcalcification or areas of architectural distortion identified. Stable typically benign parenchymal asymmetries. ??Intact implant LEFT: No suspicious masses, groups of microcalcifications or areas of architectural distortion identified. Stable typically benign parenchymal asymmetries. ??Intact implant IMPRESSION: : 1. ??No mammographic evidence of malignancy. BI-RADS Category 2 benign findings Recommendation: Routine annual screening mammography is recommended Procedure Note Rizwan Michaud MD - 2023 This is a summary report. The complete report is available in thepatient's medical record. If you cannot access the medical record, pleasecontact the sending organization for a detailed fax or copy. BILATERAL 3D DIGITAL SCREENING MAMMOGRAM History: Routine screening. No current breast complaints. Family historyof breast cancer in grandmother Comparison: Multiple priors dating back to 03/01/2021 Technique: Bilateral full-field digital 3D mammography was performed usingstandard CC and MLO projections, bilateral implant displaced views CAD was used to evaluate this mammogram. Findings: Density: There are scattered areas of fibroglandular density-B RIGHT: No suspicious masses, groups of microcalcification or areas ofarchitectural distortion identified. Stable typically benign parenchymalasymmetries. Intact implant LEFT: No suspicious masses, groups of microcalcifications or areas ofarchitectural distortion identified. Stable typically benign parenchymalasymmetries. Intact implant IMPRESSION: : 1. No mammographic evidence of malignancy. BI-RADS Category 2 benign findings Recommendation: Routine annual screening mammography is recommended Isatu Quijano CNPuja IMG XR PROCEDURES Final Result * HIV Screening (08/28/2022) HIV Screening Abstracted Historical Provider HEALTH MAINTENANCE Final Result * Hepatitis C Screening (08/28/2022) Hepatitis C Screening Abstracted Historical Provider HEALTH MAINTENANCE Final Result * Cervical Cancer Screening: HPV (05/19/2019) Cervical Cancer Screening: HPV Abstracted ,Negative us Historical Provider HEALTH MAINTENANCE Final Result from Last 3 Months or Most Recently Relevant to Health Maintenance Insurance [facility] [employer] Care Teams Assistant Attorney General Relationship Specialty Start Date End Date Ed Mario MD [address] [place] [address] [place] [phone] PCP - General Internal Medicine 04/05/21
--- OUTSIDE RECORDS SUMMARY | 2024-06-13 14:25 | XMS_ITS | Encounter Summary ---
Author Organization [facility] Address [address] [place] [address] Care Team Providers Care Accounts Payable Assistant Name Role Phone Karrie Fernandez [facility] Primary Care Provider [phone] Encounter Details Date Type Department Care Team (Latest Contact Info) Description 04/23/2020 Abstract [facility] CONVERSIONS Dental, Provider, DDS Social History Tobacco Use Types Packs/Day Years Used Date Smoking Tobacco: Never Assessed Comments Unknown Sex and Gender Information Value [...] on filedocumented in this encounter Care Teams Accounts Payable Assistant Relationship Specialty Start Date End Date Karrie Fernandez FNP [address] [place] [phone] PCP - General Family Medicine 01/12/21 documented as of this encounter
--- OUTSIDE RECORDS SUMMARY | 2024-06-13 14:25 | XMS_ITS | Clinical Summary ---
Author Organization [employer] ([employer] Address [address] [facility] 7[address] [place] [address] Care Team Providers Care Linen Tech Name Role Phone [facility] Primary Care Provider [phone] Allergies Active Allergy Reactions Criticality Noted Date Comments Pravastatin 08/06/2014 Muscle aches Other reaction(s): Body Aches Valproic Acid 10/10/2011 Face swollen Other reaction(s): swelling of face Medications gabapentin (Neurontin) 300 MG capsule take 1 capsule by oral route 1 times every day 12/01/19 22 Active Myrbetriq 50 MG 24 hr tablet Take 50 mg by mouth in the morning. 03/16/20 22 Active meclizine (Antivert) 25 MG tablet Take 25 mg by mouth at bedtime. 02/04/20 22 Active Simethicone Ultra Strength 180 MG capsule TAKE 1 CAPSULE BY MOUTH THREE TIMES DAILY AFTER MEALS 02/04/20 22 Active senna (Senokot) 8.6 MG tablet TAKE 2 TABLETS BY MOUTH DAILY AT BEDTIME NEEDED FOR CONSTIPATION 02/04/20 22 Active Linzess 145 MCG capsule Take 145 mcg by mouth in the morning. 02/04/20 22 Active metoclopramide (Reglan) 5 MG tablet TAKE 1 TABLET BY MOUTH THREE TIMES DAILY BEFORE A MEAL 09/16/19 22 Active tiZANidine (Zanaflex) 4 MG tablet TAKE 1 TABLET BY MOUTH AT BEDTIME NEEDED FOR MUSCLE PASTICITY 06/15/19 22 Active hydrocortisone (Anusol-HC) 2.5 % rectal creamIndication s:Rosacea Insert into the rectum 2 times daily. 28 g 05/30/19 23 Active Polypodium Leucotomos (Heliocare) 240 MG capsuleIndicati ons:Rosacea Take 240 mg by mouth in the morning. 30 capsule 11 05/30/19 23 Active fluticasone (Flonase) 50 MCG/ACT nasal sprayIndication s:Seasonal allergies SHAKE LIQUID AND USE 1 SPRAY IN EACH NOSTRIL TWICE DAILY 48 g 07/20/19 23 Active cetirizine (ZyrTEC) 10 MG tabletIndicatio ns:Dyspepsia TAKE 1 TABLET BY MOUTH EVERY DAY NEEDED FOR ALLERGIES 90 tablet 09/02/19 23 Active furosemide (Lasix) 20 MG tabletIndicatio ns:Edema, unspecified type TAKE 1 TABLET BY MOUTH 1 TO 2 TIMES DAILY NEEDED FOR SWELLING 180 tablet 10/25/19 23 Active venlafaxine XR (Effexor XR) 75 MG 24 hr capsule TAKE 1 CAPSULE BY MOUTH EVERY DAY WITH FOOD 60 capsule 3 07/23/19 24 Active Symbicort 80-4.5 MCG/ACT inhalerIndicati ons:Shortness of breath INHALE 2 PUFFS BY MOUTH TWICE DAILY IN THE MORNING AND IN THE EVENING 10.2 g 1 07/23/19 24 Active pantoprazole (ProtoNix) 40 MG EC tablet Take 40 mg by mouth 2 times daily. 08/23/19 24 Active cholecalciferol (D3) 25 MCG (1000 UT) capsuleIndicati ons:Vitamin D deficiency Take 1 capsule (25 mcg) by mouth Once per day. 90 capsule 3 09/28/19 24 Active naloxone (Narcan) 4 mg/0.1 mL nasal sprayIndication s:Chronic pain disorder Administer 1 spray (4 mg) into affected nostril(s) if needed for opioid reversal. May repeat every 2-3 minutes if needed, alternating nostrils, until medical assistance becomes available. 2 each 3 10/17/19 24 2024 Active Acetaminophen Extra Strength 500 MG tablet TAKE 2 TABLETS BY MOUTH EVERY 6 HOURS NEEDED FOR PAIN ON A SCALE OF 7 TO 10 08/15/19 24 Active Bisacodyl EC 5 MG EC tablet TAKE 2 TABLET SPO AT BEDTIME 04/18/19 24 Active BinaxNOW COVID-19 Ag Home Test kit TEST DIRECTED TODAY 04/08/20 23 Active dicyclomine (Bentyl) 20 MG tablet Take 20 mg by mouth 4 times daily. 08/23/19 24 Active docusate sodium (Colace) 100 MG capsule Take 100 mg by mouth 2 times daily. 10/04/19 24 Active ibuprofen 600 MG tablet Take 1 tablet by mouth every 6 (six) hours if needed. 08/31/19 24 Active ketoconazole (NIZOral) 2 % shampoo 03/01/20 23 Active Levonorgestrel (Mirena, 52 MG,) 20 MCG/DAY intrauterine device Active meloxicam (Mobic) 15 MG tablet Take 15 mg by mouth Once per day. 08/15/19 24 Active nortriptyline (Pamelor) 25 MG capsule 07/18/19 24 Active oxyCODONE-aceta minophen (Percocet) 5-325 MG tablet TAKE 1 TABLET BY MOUTH EVERY 4 TO 6 HOURS NEEDED FOR PAIN 08/31/19 24 Active polyethylene glycol-electrol ytes (Nulytely) 420 g solution 04/18/19 24 Active tacrolimus (Protopic) 0.1 % ointment APPLY TO EYES TWICE DAILY NEEDED 05/23/19 24 Active metoclopramide (Reglan) 10 MG tablet Take 10 mg by mouth 3 times daily. 10/04/19 24 Active cyclobenzaprine (Flexeril) 10 MG tabletIndicatio ns:Pain TAKE 1 TABLET BY MOUTH IF NEEDED IN THE MORNING, AT NOON, AND AT BEDTIME FOR MUSCLE SPASMS 30 tablet 1 03/28/20 24 Active traMADol (Ultram) 50 MG tabletIndicatio ns:Chronic pain disorder TAKE 1 TABLET(50 MG) BY MOUTH EVERY 6 HOURS FOR UP TO 7 DAYS NEEDED FOR SEVERE PAIN 28 tablet 06/09/19 25 2024 Active Sodium Fluoride (Sodium Fluoride 5000 PPM) 1.1 % pasteIndication s:Erosion of teeth, 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 APPLY A SMEAR ON BRUSH AND BRUSH TEETH THOROUGHLY TWICE DAILY 100 mL 06/13/19 25 Active Sodium Fluoride (Sodium Fluoride 5000 PPM) 1.1 % pasteIndication s:Erosion of teeth, 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 APPLY A SMEAR ON THE BRUSH, AND BRUSH THOROUGHLY TWICE DAILY 100 mL 02/23/20 23 2024 Discontinued traMADol (Ultram) 50 MG tabletIndicatio ns:Chronic pain disorder TAKE 1 TABLET(50 MG) BY MOUTH EVERY 6 HOURS FOR UP TO 7 DAYS NEEDED FOR SEVERE PAIN 28 tablet 03/28/202024 Discontinued Active Problems Problem Noted Date Diagnosed Date Disc disease, degenerative, cervical 10/23/2023 Assessment & Plan (01/22/2024 12:56 PM EDT): Good engagement and participation with Group Medical Visit model -Encouraged multifactorial approach to pain control including pharm and non- pharm modalities -UTOX and pill count not performed today, they were as expected 12/25/23 Assessment & Plan (12/25/2023 2:18 PM EDT): -Good engagement and participation with Group Medical Visit model -Encouraged multifactorial approach to pain control including pharm and non- pharm modalities -UTOX and pill count as expected Assessment & Plan (10/23/2023 1:35 PM EDT): -Good engagement and participation with Group Medical Visit model, today was first visit. -Encouraged multifactorial approach to pain control including pharm and non- pharm modalities -UTOX completed 10/17/23, forgot pills for count. Will follow up with RN. Axillary pain, left 09/28/2023 Assessment & Plan (09/28/2023 12:48 PM EDT): Pt does have some enlargement of soft tissue of her axillary area ,no obvious LDN palpated L>R, breast exam is normal . Seems very likely symptoms are associated w recent vaccine placed in her left arm -referred for bl axillary/breast US -tylenol , NSAIDS prn for moderate pain -warm compresses -alarm signs and symptoms Incontinence 09/23/2023 Overview (09/23/2023): Patient with history of pubovaginal sling d/t incontinence. Other chronic pain 09/23/2023 Overview (09/23/2023): - Pt has extensive history of vague neurological complaints including dizziness, numbness/weakness of right arm, and recurrent parotid gland swelling. She has seen multiple specialists including rhematology, ENT, cardiology, and vascular all with unremarkable work up. Depression 09/23/2023 Johnson's esophagus with dysplasia 09/21/2023 Swelling of both parotid glands 04/12/2021 02/01/2023 Overview (09/23/2023): Recurrent. Biopsy 08/2019 unremarkable Chiari malformation type I 03/17/2021 Overview (09/21/2023): Differing MRI reports Seen by neurology Most [...] without neural impingement. Hemangioma of liver 03/17/2021 02/01/2023 Peripheral venous insufficiency 03/17/2021 02/01/2023 Overview (09/23/2023): S/P bilateral ablation of GSV Sensorineural hearing loss of right ear 03/17/20 21 02/01/2023 Persistent postural-perceptual dizziness 021 Irritable bowel syndrome 01/06/2013 Gastroesophageal reflux disease 09/12/2011 Lower extremity edema 09/12/2011 02/01/2023 Overview (09/23/2023): Managed with [facility] lasix. Echo 2016 with trace mitral/tricuspid/aortic regurgitation. Last seen by [facility] cardiology 02/2020. Obesity 09/12/2011 02/01/2023 Resolved Problems Problem Noted Date Diagnosed Date Resolved Date Neck pain 03/17/2021 02/01/2023 09/23/2023 Encounters Date Type Department Care Team Description 06/13/2024 11:00 AM EST Office Visit [facility] [address] [place] [id number] Siren, Karrie, [employer]OUNTS MANAGER Chronic heel pain, right (Primary Dx); Encounter for immunization 06/13/2024 Travel 06/09/2024 Telephone [facility] [address] [place] [address] SirenKarrie [facility] Nurse Triage 06/09/2024 Refill [facility] [address] [facility] [place] [address] Sixto Reno, DDS Erosion of teeth, 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 06/09/2024 Refill [facility] [address] [place] [address] SirenKarrie [facility] Chronic pain disorder 03/27/2024 Refill [facility] [address] [place] [address] [facility] Karrie [facility] Chronic pain disorder; Pain from Last 3 Months Immunizations Name Administration Dates Next Due DTaP 06/15/1983, 1,1978,08/14 Hep A, Adult 03/16/2021,01/28/2019 Hep B, Adolescent or Pediatric 12/30/2007,2007,08/23/2007 Influenza Injectable Quadriv alant Preservative Free IIV4 MDCK 07/01/2019 Influenza injectable quadriv alent preservative free 02/28/2022,03/16/2021,01/23/2020,01/22 Influenza, IIV3, injectable 01/26/2014 Influenza, seasonal, injecta ble, preservative free 06/13/2024 MMR 09/14/1990,09/15/1979 Meningococcal MCV4P ACYW-135 08/01/2018 OPV 06/15/1983, 1,1978,08/14 Pneumococcal Conjugate PCV 20 09/21/2023 TD (adult), 2 Lf tetanus tox oid, preservative free, adsorbed 08/06/2006 Tdap 01/22/2017 Varicella 09/23/2007,08/23/2007 Social History Tobacco Use Types Packs/Day Years Used Date Smoking Tobacco: Never Smokeless Tobacco: Never Tobacco Cessation:Counseling Given: Not Answered Alcohol Use Standard Drinks/Week Comments Never 0 [...] Orientation Straight 02/13/2022 10 :14 AM EDT Last Filed Vital Signs Vital Sign Reading Time Taken Comments Blood Pressure 118/76 06/13/2024 11:15 AM EST Pulse 93 06/13/2024 11:15 AM EST Temperature 36.5 ??C (97.7 ??F) 06/13/2024 11:[address] Respiratory Rate 16 06/13/2024 11:15 AM EST Oxygen Saturation 98% 09/28/2023 11:05 AM EDT Inhaled Oxygen Concentration - - Weight 96.3 kg (212 lb 6.4 oz) 06/13/2024 11:15 AM EST Height 160 cm (5' 3 ) 06/13/2024 11:15 AM EST Body Mass Index 37.62 06/13/2024 11:15 AM EST Plan of Treatment Health Maintenance Due Date Last Done Comments CT Colonography 1978 Colonoscopy 1978 Colorectal Cancer Screening 1978 Dental Oral Exam 1978 Dental X-Ray: Bitewings 1978 Dental X-Ray: Full Mouth 1978 FIT DNA/Cologuard 1978 FIT 1978 FOBT 1978 HIV Screening 1978 Sigmoidoscopy 1978 Hepatitis C Screening 1996 Hepatitis B Vaccines (1 of 3 - 19+ 3-dose series) 1997 12/30/2007, 09/23/2007, 08/23/2007 Dental Prophylaxis 09/29/2022 03/30/2022 COVID-19 Vaccine ( season) 2023 04/25/2021, 08/27/2020, 07/30/2020 Cervical Cancer Screening 05/19/2024 HPV/Cotest 05/19/2024 05/19/2019 Pap Smear 05/19/2024 05/19/2019 Alcohol/Substance Use Screening 09/20/2024 09/21/2023 Depression Screening 09/20/2024 09/21/2023, 09/21/19 24 SDOH Screening 09/20/2024 09/21/2023 Family Planning (PISQ) 09/22/2024 09/23/2023 Tobacco Screening 01/21/2025 01/22/2024 Mammogram 10/04/2025 10/05/2023, 01/07/2018 DTaP/Tdap/Td Vaccines (6 - Td or Tdap) 01/22/2027 01/22/2017, 08/06/2006, 06/15/1983, Additional history exists Zoster Vaccines (1 of 2) 2028 Lipid Panel 09/23/2028 09/24/2023, 05/, 03/24/2021, Additional history exists RSV Patients and Patients Aged 60 years or older (1 - 1-dose 75+ series) 2053 IPV Vaccines Completed 06/15/1983, 06/0 04/1980, 1978, Additional history exists Meningococcal Vaccine Aged Out 08/01/2018 No tim adrien eligible based on patient's age to complete this topic Hepatitis A Vaccines Completed 03/16/2021, 01/29/20 19 Pneumococcal Vaccine: Pediatrics (0 to 5 Years) and At-Risk Patients (6 to 49) Years) Aged Out 09/21/2023 No longer eligible based on patient's age to complete this topic Influenza Vaccine Completed 06/13/2024, , 03/16/2021, Additional history exists HIB Vaccines Aged Out No longer eligi ble based on patient's age to complete this topic HPV Vaccines Aged Out No longer eligi ble based on patient's age to complete this topic RSV under 20 months Aged Out No longe r eligible based on patient's age to complete this topic Rotavirus Vaccines Aged Out No longer eligible based on patient's age to complete this topic Procedures Procedure Name Priority Date/Time Associated Diagnosis Comments XR FOOT 3+ VIEWS RIGHT Routine 06/13/2024 12:11 PM EST Chronic heel pain, right POCT RAPID STREP A Routine 06/13/2024 11 :41 AM EST Chronic heel pain, right BI US BREAST LIMITED BILATERAL Routine 10/05/2023 10:52 AM EDT LIPID PANEL, STANDARD Routine 09/24/2023 11:59 AM EDT Healthcare maintenance PROPHYLAXIS - ADULT Routine 03/30/2022 9 :30 AM EST Encounter for dental examination HM PAP/HPV Routine 05/19/2019 from Last 3 Months or Most Recently Relevant to Health Maintenance Results * XR Foot 3+ Views Right (06/13/2024 12:11 PM EST) Anatomical Region Laterality Modality Lower Extremities, Foot Right [facility] 06/13/2024 12:1 1 PM EST Narrative 06/13/2024 1:48 PM EST ?[facility] ?[address] ?[place] [address] ?XRay Report ? Signed ? Patient: Lacy,Dulce E ?MR#: [id number] ?? [id number] ? : 1980 ?Acct:[id number] ? Age/Sex: 44 / F ?ADM Date: /28/25 ? Loc: HO.HHCX ? Attending Dr: Karrie Fernandez [employer] MANAGER ? Ordering Physician: Karrie Fernandez ?? Date of Service: 06/13/24 ?? Procedure(s): XR foot RT min 3V ?? Accession Number(s): [id number] ? cc: Karrie Fernandez [employer] MANAGER ? EXAMINATION: ?? XR FOOT, RIGHT ? [...] DD/ 1211 ? TD/TT: 06/13/24 1215 ? Crate Opener: ? Procedure Note Radha, Image - 06/13/[address] [address] XRay Report Signed Patient: Dulce Lacy EMR#: [id number] : 1980Acct:[id number] Age/Sex: 44 / FADM Date: 06/13/24 Loc: HO.HHCX Attending Dr: Karrie Fernandez [employer]S MANAGER Ordering Physician: Karrie Fernandez Date of Service: 06/13/24 Procedure(s): XR foot RT min 3V Accession Number(s): [id number] cc: Karrie Fernandez [employer] MANAGER EXAMINATION: XR FOOT, RIGHT CLINICAL INFORMATION: Chronic [...] 06/13/24 1345 DD/ 1211 TD/TT: 06/13/24 1215 Crate Opener: [facility] [employer] ACCOUNTS MANAGER IMG XR PROCEDURES Final Resul t * POCT rapid strep A manually resulted (06/13/2024 11:41 AM EST) Rapid Strep A Screen Negative Negative, None Detected Swab 06/13/2024 11:4 1 AM EST Result [facility] [employer]OUNTS MANAGER POINT OF CARE TEST ENTER/EDIT ORDERABLES Final Result * BI US Breast Limited Bilateral (10/05/2023 10:52 AM EDT) Anatomical Region Laterality Modality Breast Bilateral Ultrasound 10/05/2023 10:5 2 AM EDT Narrative 10/05/2023 11:07 AM EDT ? [facility] ? [address] ?[place] [address] ? Ultrasound Report ? Signed ? Patient: Lacy,Dulce E ?MR#: [id number] ?? [id number] ? : 1980 ?Acct:[id number] ? Age/Sex: 43 / F ?ADM Date: 06/21/24 ? Loc: HO.MAMMO ? Attending Dr: Vanessa Mendoza MD ? Ordering Physician: Vanessa Glez MD ?? Date of Service: 10/05/23 ?? Procedure(s): US breast BI limited mamm only ?? Accession Number(s): [id number] ? cc: Vanessa Glez MD ? EXAMINATION: ?? MM DIAGNOSTIC DIGITAL BREAST TOMOSYNTHESIS, BILATERAL ?? US BREAST LIMITED, BILATERAL ? CLINICAL INFORMATION: ? 43-year-old female complaining of left greater than right axillary pain ?? with mild left axillary swelling. Of note, patient had the pneumonia ?? vaccine on the left 09/20 and her symptoms began on 09/25/2023. Patient ?? states some improvement now. Patient has bilateral implants. History of ?? breast cancer in maternal grandmother, unknown age. ? COMPARISON: (Prior mammography at [facility]) ?? Mammography: 03/20/2023, 03/14/2022, 03/01/2021, 01/07/2018, and dating ?? back to 2016 (baseline at [place]). ? TECHNIQUE: ?? Digital mammography is performed in craniocaudal and mediolateral ?? oblique views. ??Digital breast tomosynthesis is performed in ?? implant-displaced craniocaudal and implant-displaced mediolateral ?? oblique views. Synthesized 2D images are generated from the ?? tomosynthesis. Computer-aided detection (CAD) is performed for this ?? exam. ? FINDINGS: ?? There are scattered areas of fibroglandular density (ACR BI-RADS breast ?? composition Category b). ? The implant contours are unremarkable. ??There are no significant ?? masses, abnormal calcifications, or other abnormalities. ?? There are ?? bilateral skin calcifications. No axillary abnormalities or adenopathy ?? is identified on either side. ? ULTRASOUND: ?? CLINICAL INFORMATION: ?? As above. ? COMPARISON: ?? None ? TECHNIQUE: ?? Targeted sonographic evaluation was performed using a high frequency ?? linear transducer. Examination of both axillary regions was performed. ?? Selected archived documentation. ? FINDINGS: ? RIGHT AXILLA: There are normal-appearing lymph nodes. There is no ?? pathologic lymph node, mass, or abnormal shadowing. No cystic ?? abnormalities. ? LEFT AXILLA: There are normal-appearing lymph nodes. There is no ?? pathologic lymph node, mass, or abnormal shadowing. No cystic ?? abnormalities. ? US/ breast BI limited mamm only ?? IMPRESSION: ?? -There are no findings in either breast suspicious for malignancy. ?? There is no implant complication. Stable examination. ? -There is no abnormality or pathologic lymphadenopathy in either ?? axillary region. Only reactive appearing normal nodes are seen. ?? Recommend clinical management of the patient's complaints. ? -Otherwise, recommend the patient return to routine annual screening ?? mammography. ? OVERALL ASSESSMENT: ?? Mammography: BI-RADS 2 - Benign Findings ?? Ultrasound: BI-RADS 2 - Benign Findings ? RECOMMENDATION: ?? 1. Patient should be managed based on the clinical impression. ?2. ?? Otherwise, routine annual screening mammography. ? This patient's information was entered into a reminder system with a ?? target due date for their next mammogram. ? Dictated By: ?Jairo Mejia MD ? Signed By: ?<Electronically signed by Jairo Mejia MD in OV> ?10/05/23 1104 ? DD/ 1052 ? TD/TT: ? Crate Opener: ? Procedure Note Donnarayan, Image - 10/05/2023 [facility] [address] [place] [address] Ultrasound Report Signed Patient: Dulce Lacy EMR#: [id number] : 1980Acct:[id number] Age/Sex: 43 / FADM Date: 10/05/23 Loc: HOAjayMAMMO Attending Dr: Vanessa Mendoza MD Ordering Physician: Vanessa Glez MD Date of Service: 10/05/23 Procedure(s): US breast BI limited mamm only Accession Number(s): [id number] cc: Vanessa Glez MD EXAMINATION: MM DIAGNOSTIC DIGITAL BREAST TOMOSYNTHESIS, BILATERAL US BREAST LIMITED, BILATERAL CLINICAL INFORMATION: 43-year-old female complaining of left greater than right axillary pain with mild left axillary swelling. Of note, patient had the pneumonia vaccine on the left 09/20 and her symptoms began on 09/25/2023. Patient states some improvement now. Patient has bilateral implants. History of breast cancer in maternal grandmother, unknown age. COMPARISON: (Prior mammography at [facility]) Mammography: 03/20/2023, 03/14/2022, 03/01/2021, 01/07/2018, and dating back to 2016 (baseline at [place]). TECHNIQUE: Digital mammography is performed in craniocaudal and mediolateral oblique views. Digital breast tomosynthesis is performed in implant-displaced craniocaudal and implant-displaced mediolateral oblique views. Synthesized 2D images are generated from the tomosynthesis. Computer-aided detection (CAD) is performed for this exam. FINDINGS: There are scattered areas of fibroglandular density (ACR BI-RADS breast composition Category b). The implant contours are unremarkable. There are no significant masses, abnormal calcifications, or other abnormalities. There are bilateral skin calcifications. No axillary abnormalities or adenopathy is identified on either side. ULTRASOUND: CLINICAL INFORMATION: As above. COMPARISON: None TECHNIQUE: Targeted sonographic evaluation was performed using a high frequency linear transducer. Examination of both axillary regions was performed. Selected archived documentation. FINDINGS: RIGHT AXILLA: There are normal-appearing lymph nodes. There is no pathologic lymph node, mass, or abnormal shadowing. No cystic abnormalities. LEFT AXILLA: There are normal-appearing lymph nodes. There is no pathologic lymph node, mass, or abnormal shadowing. No cystic abnormalities. US/US breast BI limited mamm only IMPRESSION: -There are no findings in either breast suspicious for malignancy. There is no implant complication. Stable examination. -There is no abnormality or pathologic lymphadenopathy in either axillary region. Only reactive appearing normal nodes are seen. Recommend clinical management of the patient's complaints. -Otherwise, recommend the patient return to routine annual screening mammography. OVERALL ASSESSMENT: Mammography: BI-RADS 2 - Benign Findings Ultrasound: BI-RADS 2 - Benign Findings RECOMMENDATION: 1. Patient should be managed based on the clinical impression. 2. Otherwise, routine annual screening mammography. This patient's information was entered into a reminder system with a target due date for their next mammogram. Dictated By: Jairo Mejia MD Signed By: <Electronically signed by Jairo Mejia MD in OV> 10/05/23 1104 DD/ 1052 TD/TT: Crate Opener: Vanessa Mendoza MD IM US PROCEDURES Final Result * (ABNORMAL) Lipid Panel, Standard (09/24/2023 11:59 AM EDT) Triglycerides 60 <150 mg/dL [facility] Comment:Desirable Triglyceri de: less than 150 mg/dLBorderline High Triglyceride 150-199 mg/dLHigh Triglyceride: 200-499 mg/dLVery High Triglyceride: greater than or equal to 5OO mg/dL Cholesterol 220(H) <200 mg/dL [facility] Comment:Desirable Cholestero l: less than 200 mg/dLBorderline High Cholesterol: 200-239 mg/dLHigh Cholesterol: greater than 239 mg/dL LDL Cholesterol Calculated 152(H) <100 mg/dL [facility] Comment:Desirable LDL: less than 100 mg/dLNear Optimal/Above Optimal LDL: 110- 129 mg/dLBorderline High LDL: 130-159 mg/dLHigh LDL: 160-189 mg/dLVery High LDL: greater than or equal to 190 mg/dL HDL Cholesterol 56 >40 mg/dL [facility] Comment:Desirable HDL: great er than 40 mg/dL Note: This HDL assay may give artificially low results in patients with liver disease. Blood Venous blood specimen / Unknown 09/24/2023 11:59 AM EDT 09/24/2023 11:59 AM EDT [facility] [employer]OUNTS MANAGER LAB BLOOD ORDERABLES Final Re sult [facility] [address] [place] [phone] * Pap Smear (05/19/2019) Pap Negative for intraephithelial lesion or malignancy Negative for intraephithelial lesion or malignancy, Other HPV Undetected Undetected, Indeterminate, Quantitative, Not Detected Historical Provider HEALTH MAINTENANCE Final Result from Last 3 Months or Most Recently Relevant to Health Maintenance Insurance HSN PARTIAL [facility] ADULT Care Teams Linen Tech Relationship Specialty Start Date End Date SirenKarrie FNP [address] [place] [phone] PCP - General Family Medicine 01/12/21
--- OUTSIDE RECORDS SUMMARY | 2024-06-13 14:25 | XMS_ITS | Encounter Summary ---
Author Organization [employer] [facility] Address [address] [place] [address] Care Team Providers Care High Lift Driver Name Role Phone Karrie Fernandez [facility] Primary Care Provider Encounter Details Date Type Department Care Team (Latest Contact Info) Description 03/07/2019 Abstract [facility] CONVERSIONS Dental, Provider, DDS Social History [...] on filedocumented in this encounter Care Teams High Lift Driver Relationship Specialty Start Date End Date Karrie Fernandez FNP [address] [place] [phone] PCP - General Family Medicine 01/12/21 documented as of this encounter
--- OUTSIDE RECORDS SUMMARY | 2024-06-13 14:25 | XMS_ITS | Encounter Summary ---
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 Role Phone [facility] Primary Care Provider [phone] Reason for Visit * Reason Onset Date Comments Letter for School/Work 10/30/2022 Encounter Details Date Type Department Care Team ([facility] st Contact Info) Description 10/30/2022 Telephone [facility] [address] [place], [place] [phone] [facility] [address] [place] [address] Letter for School/Work Social History Tobacco Use Types Packs/Day Years Used Date Smoking Tobacco: Never Smokeless Tobacco: Never Comments Unknown Sex and Gender Information Value Date Recorded Sex Assigned at Female 02/13/2022 10:14 AM EDT Legal Sex Female 10:14 AM EDT Gender Identity Female 02/13/2022 10:14 AM EDT Sexual Orientation Straight 02/13/2022 10 :14 AM EDT COVID-19 Exposure Response Date Recorded In the last 10 days, have yo u been in contact with someone who was confirmed or suspected to have Coronavirus/COVID-19? No / Unsure 10/05/2022 10:47 AM EDT documented as of this encounter Miscellaneous Notes * Telephone Encounter - Alma Kimble RN - 10/30/2022 4:54 PM EDT T/C to pt. For below message, pt. Schedule for apt. On 11/08, pt. Verbally agreed and understood. * Telephone Encounter - Ramón Franco - 10/30/2022 12:18 PM EDT Tc from pt requesting status on letter requested on last appt visit with provider. Pt states that she requested letter to provider EDUARD. Please contact pt at [phone] Damien Barcenas Pt states letter is to be able to go back to work . 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
== END 2024-06-13 12:10 | disposition home or self-care (01) ==
LOC: HO.HHCX 12:09
PROVIDERS: Visit Provider Registered Nurse
DX: M79.671 Pain in right foot (principal); G89.29 Other chronic pain
CPT/HCPCS: 73630

== ENCOUNTER → 2024-06-13 12:11 | Outpatient (BNV) | payer OTHER, SELFPAY | PROVIDERS: Visit Provider Radiology Diagnostic Radiology | DX: M77.31 Calcaneal spur, right foot (principal) | CPT/HCPCS: 73630 ==

== ENCOUNTER 2024-07-10 10:37 | Outpatient (AMB) | payer OTHER, SELFPAY ==
[2024-07-10 10:40] VITALS: BP 112/69; PULSE 72; BMI 37.1
--- NOTE | 2024-07-10 10:40 | MHC.OFFVIS ---
Vital Signs 07/10/24 10:40 Height 5 ft 3 in Weight 209 lb 7.026 oz BMI 37.1 BP 112/69 Blood Pressure Location Rt brachial Position Sitting Pulse 72 Intake Visit Reasons: Follow up [facility] Intake Note: Patient presents in office visit today in follow up of [facility]. CC: Patient reports doing well with medications. Manager Net Required: No Accompanied by: Self / Same As Patient Allergies divalproex sodium [From DEPAKOTE] Allergy (Unknown, Verified 07/10/24 10:58) FACIAL SWELLING, swelling of face pravastatin [PRAVASTATIN] Allergy (Unknown, Verified 07/10/24 10:58) MUSCLE ACHES, body aches 14-Count Warmer Allergy (Unknown, Uncoded 09/13/23 10:40) Unknown HPI HPI Follow up [facility]: Details: Assessment & Plan (1) GERD (gastroesophageal reflux disease): Code(s): K21.9 - Gastro-esophageal reflux disease without esophagitis Category: Medical (2) Chronic idiopathic constipation: Code(s): K59.04 - Chronic idiopathic constipation Category: Medical (3) Abdominal bloating: Code(s): R14.0 - Abdominal distension (gaseous) Category: Medical (4) 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: Comment: 2023 scope=SSBE repeat in 2 years Code(s): K22.70 - Johnson's esophagus without dysplasia Category: Medical Medications: Refilled linaclotide (Linzess) 145 mcg PO QAM 30 caps 6RF K59.04 - Chronic idiopathic constipation, R14.0 - Abdominal distension (gaseous) sennosides (senna) 25.8 mg (3 x 8.6 mg) PO BEDTIME 90 days 270 caps 6RF constipation K59.04 - Chronic idiopathic constipation simethicone after meals 180 mg PO .TIDAC 30 days 90 caps 6RF K59.04 - Chronic idiopathic constipation, R14.0 - Abdominal distension (gaseous) [id number] 36,000-114,000- 180,000 unit (Creon) administer with meals and/or snacks 2 caps PO BID 120 caps 6RF metoclopramide HCl (Reglan) 10 mg PO QID 120 tabs 6RF K59.9 - Functional intestinal disorder, unspecified pantoprazole 40 mg PO BID 60 tabs 6RF K21.9 - Gastro-esophageal reflux disease without esophagitis, K22.70 - Johnson's esophagus without dysplasia VIKY turner She is much better in terms of the bloating with the creon. However, she is still having nausea, gastric pain with her largest meal in the pm, and fatigue with eating. And with discussion she is not taking the reglan scheduled qid, so this is ghe first change I would make. She was considering going on ozempic/wegovy for wt loss, but we discuss the possible drawbacks in terms of gastric motiltiy and her SSBE and she understands rancho may not be the best choice. ROV 8 weeks. TODAY'S VISIT VIKY manzo She continues on her Reglan which should be scheduled 4 times a day and her Creon. She is also on pantoprazole, simethicone, and dicyclomine and Linzess with senna and Colace. She found that if she takes some senna at night along with 1 Dulcolax and then her Linzess in the morning her stool is actually less watery and she is moving her bowels better. Because of this we will add the bisacodyl back in. 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 History of bladder suspension procedure Family History Mother Colon polyps Social History Comment: counts correct Patient Tobacco Use Status: Never used Tobacco e-Cigarette/Vaping Use: Never Used Review of Systems Const Denies fatigue, Denies fever(s), Denies night sweats, Denies poor appetite and Denies weight loss ENT Reports Normal hearing present, Denies dental pain, Denies dysphagia, Denies hearing loss, Denies mouth pain, Denies odynophagia, Denies throat swelling, Denies tongue swelling and Reports other (Dentition adequate) Card Reports no additional complaints Resp Reports no additional complaints GI Details: Denies abdominal pain, Denies melena, Denies bloating, Denies hematochezia, Reports constipation, Denies GI cramping, Denies dysphagia, Denies excessive flatus, Denies early satiety, Reports heartburn, Denies diarrhea, Denies nausea, Denies odynophagia, Denies vomiting and Denies hematemesis Skin/Breast Denies pruritus, Denies lesions, Denies rash and Denies jaundice Neuro Reports Normal hearing present and Denies Abnormal speech present Endo Denies fatigue Aller/Immun Denies throat swelling and Denies tongue swelling Physical Exam Vital Signs: Last Vital Signs Pulse 72 07/10/24 10:40 BP 112/69 07/10/24 10:40 BMI result Body Mass Index 37.1 Const General: cooperative, no acute distress, well developed and well groomed Nutritional Appearance: well nourished and obese Orientation/consciousness: oriented to person, oriented to place and oriented to time Limitations: No language barrier HEENT Head: Yes normocephalic and Yes atraumatic Eyes General: appearance normal, both eyes and all related structures Pupils: Equal, round and reactive pupils present Neck Neck: Yes normal visual inspection and Yes no lymphadenopathy Thyroid: Thyroid normal Resp Effort & Inspection: normal respiratory effort and able to speak in complete sentences Auscultation: clear to auscultation bilaterally Cardio Rate: regular rate Rhythm: regular rhythm Heart sounds: Normal, physiologic split S2 sound present Peripheral pulses: radial pulses present and posterior tibial pulses present GI Inspection: No distended, Yes Abdominal panniculus present and Yes obesity Palpation (GI): Soft to palpation, nontender, no guarding, not rigid and No hepatosplenomegaly present Percussion: Yes normal to percussion Auscultation: normal bowel sounds Rectal Exam - Female: deferred Skin General skin exam: no rashes or lesions noted, turgor normal, skin not dry, no jaundice, No spider nevi and no striae Rashes: no rashes Nails: normal Neuro General: oriented to person, oriented to place and oriented to time Cranial nerves: Yes Equal, round and reactive pupils present and Yes Normal hearing present Speech: No Abnormal speech present Extrem General: Yes normal to inspection, No clubbing, No cyanosis and No edema Psych Appearance: grossly normal and well kempt Mental Status: mental status grossly normal Speech and movement: Normal speech and movement present Affect: normal affect Attitude: cooperative Thought process: Normal thought process present and not confabulating Thought content: Normal thought content present Insight: Limited insight present (Psych) Judgement: Limited judgement present (Psych) Assessment & Plan Assessment & Plan (1) GERD (gastroesophageal reflux disease): Code(s): K21.9 - Gastro-esophageal reflux disease without esophagitis Category: Medical (2) Chronic idiopathic constipation: Code(s): K59.04 - Chronic idiopathic constipation Category: Medical (3) Liver hemangioma: Code(s): D18.03 - Hemangioma of intra-abdominal structures Category: Medical Plan WOLOF # [id number] She continues on her Reglan which should be scheduled 4 times a day and her Creon. She is also on pantoprazole, simethicone, and dicyclomine and Linzess with senna and Colace. She found that if she takes some senna at night along with 1 Dulcolax and then her Linzess in the morning her stool is actually less watery and she is moving her bowels better. Because of this we will add the bisacodyl back in. She had some liver hemangiomas in the past and we will get an ultrasound just to check on these even though they are not terribly concerning. Return office visit in 6 months Orders: Orders US abdomen complete Today D18.03 - Hemangioma of intra-abdominal structures Medications: New bisacodyl (Dulcolax (bisacodyl)) 5 mg PO BEDTIME 30 tabs 6RF 30 days K59.04 - Chronic idiopathic constipation Refilled docusate sodium (Colace) 100 mg PO BID 60 caps 2RF hydrocortisone 2.5% (Proctosol HC) BE SURE TO INCLUDE RECTAL APPICATOR!! 1 appl IA BID 30 grams 6RF hemorrhoids K64.9 - Unspecified hemorrhoids [id number]-trhkzupb-[id number] 36,000-114,000- 180,000 unit (Creon) administer with meals and/or snacks 2 caps PO BID 120 caps 6RF pantoprazole 40 mg PO BID 60 tabs 6RF K21.9 - Gastro-esophageal reflux disease without esophagitis, K22.70 - Johnson's esophagus without dysplasia sennosides (senna) 25.8 mg (3 x 8.6 mg) PO BEDTIME 270 caps 6RF constipation 90 days K59.04 - Chronic idiopathic constipation linaclotide (Linzess) 145 mcg PO QAM 30 caps 6RF K59.04 - Chronic idiopathic constipation, R14.0 - Abdominal distension (gaseous) metoclopramide HCl (Reglan) 10 mg PO QID 120 tabs 6RF K59.9 - Functional intestinal disorder, unspecified simethicone after meals 180 mg PO .TIDAC 90 caps 6RF 30 days K59.04 - Chronic idiopathic constipation, R14.0 - Abdominal distension (gaseous) Discontinued dicyclomine Discontinued Reason: Doctor's Order 20 mg PO QID 30 days 120 tabs 6RF R10.9 - Unspecified abdominal pain Coding Level of Care Code Est Pt Level 3 (21271) Diagnoses GERD (gastroesophageal reflux disease) K21.9 Chronic idiopathic constipation K59.04 Liver hemangioma D18.03
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
--- OUTSIDE RECORDS SUMMARY | 2024-07-10 13:53 | XMS_ITS | Clinical Summary ---
Author Organization [employer] Address [address] [place] [address] Care Team Providers Care Product Line Manager Name Role Phone Rebecca [facility] Primary Care Provider [phone] Allergies Active Allergy Reactions Criticality Noted Date [...] SPASMS 30 tablet 1 03/28/20 24 Active Sodium Fluoride (Sodium Fluoride 5000 PPM) [...] PAIN 28 tablet 06/09/19 25 2024 Active Problems Problem Noted Date Diagnosed Date [...] edema 09/12/2011 02/01/2023 Overview (09/23/2023): Managed with PRN lasix. Echo 2016 with trace mitral/tricuspid/aortic regurgitation. Last seen by [facility] cardiology 02/2020. Obesity 09/12/2011 02/01/2023 Resolved Problems Problem Noted Date Diagnosed Date Resolved Date Neck pain 03/17/2021 02/01/2023 09/23/2023 Encounters Date Type Department Care Team Description 06/13/2024 11:00 AM EST Office Visit [facility] [address] [place] [address] Karrie Fernandez FNP Lesion of uvula (Primary Dx); Chronic heel pain, right; Left elbow pain; Encounter for immunization 06/13/2024 Travel 06/09/2024 Telephone [facility] [address] [place] [address] Karrie Fernandez FNP Nurse Triage; Results 06/09/2024 Refill [facility] [address] [place] [address] [place] DDDarinel Erosion of teeth, 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 06/09/2024 Refill [facility] [address] [place] [address] [place], Karrie, E [employer]CHIT[employer] Chronic pain disorder from Last 3 Months Immunizations Name Administration Dates Next Due DTaP 06/15/1983, 1,1978,08/14 Hep A, Adult 03/16/2021,01/28/2019 Hep B, Adolescent or Pediatric 12/30/2007,2007,08/23/2007 Influenza Injectable Quadriv alant Preservative Free IIV4 MDCK 07/01/2019 Influenza injectable quadriv alent preservative free 02/28/2022,03/16/2021,01/23/2020,01/22 Influenza, IIV3, injectable 01/26/2014 Influenza, seasonal, injecta ble, preservative free 06/13/2024 MMR 09/14/1990,09/15/1979 Meningococcal MCV4P ACYW-135 08/01/2018 OPV, Trivalent 06/15/1983, 1,1978,08/14 Pneumococcal Conjugate PCV 20 09/21/2023 [...] 06/13/2024 11:15 AM EST Plan of Treatment Upcoming Encounters Date Type Department Care Team (Late st Contact Info) Description 09/15/2024 11:15 AM EDT Office Visit [facility] [address] [place] [address] [facility] [address] [place], [place] [id number] Health Maintenance Due Date Last Done Comments [...] Family Planning (PISQ) 09/22/2024 09/23/2023 Tobacco Screening 06/14/2025 06/14/2024 Mammogram 10/04/2025 10/05/2023, 01/07/2018 DTaP/Tdap/Td Vaccines (6 [...] PM EST Narrative 06/13/2024 1:48 PM EST ?[facility] ?[address] ?[place] [address] ?XRay Report ? Signed ? Patient: Lacy,Dulce E ?MR#: [id number] ?? [id number] ? : 1980 ?Acct:[id number] ? Age/Sex: 44 / F ?ADM Date: 02/28/25 ? Loc: HO.HHCX ? Attending Dr: Karrie Fernandez E [employer]UTION ARCHITECT ? Ordering Physician: Karrie Fernandez E [employer]UTION ARCHITECT ?? Date of Service: 06/13/24 ?? Procedure(s): XR foot RT min 3V ?? Accession Number(s): [id number] ? cc: Karrie Fernandez E [employer] ARCHITECT ? EXAMINATION: ?? XR FOOT, RIGHT ? [...] DD/ 1211 ? TD/TT: 06/13/24 1215 ? Tourist Information Officer: ? Procedure Note Radha, Lucio - 06/13/[address] [address] XRay Report Signed Patient: Dulce Lacy EMR#: [id number] : 1980Acct:[id number] Age/Sex: 44 / FADM Date: 06/13/24 Loc: HO.HHCX Attending Dr: Karrie Fernandez E [employer] ARCHITECT Ordering Physician: Karrie Fernandez Date of Service: 06/13/24 Procedure(s): XR foot RT min 3V Accession Number(s): [id number] cc: Karrie Fernandez E [employer] ARCHITECT EXAMINATION: XR FOOT, RIGHT CLINICAL INFORMATION: Chronic [...] 06/13/24 1345 DD/ 1211 TD/TT: 06/13/24 1215 Tourist Information Officer: [facility] E [employer] ARCHITECT IMG XR PROCEDURES Final Resul t * POCT rapid strep A manually resulted (06/13/2024 11:41 AM EST) Rapid Strep A Screen Negative Negative, None Detected Swab 06/13/2024 11:4 1 AM EST Result [facility] E [employer] ARCHITECT POINT OF CARE TEST ENTER/EDIT ORDERABLES Final Result * BI US Breast Limited Bilateral (10/05/2023 10:52 AM EDT) Anatomical Region Laterality Modality Breast Bilateral Ultrasound 10/05/2023 10:5 2 AM EDT Narrative 10/05/2023 11:07 AM EDT ? [facility] ? [address] ?[place] [address] ? Ultrasound Report ? Signed ? Patient: Lacy,Dulce E ?MR#: [id number] ?? [id number] ? : 1980 ?Acct:[id number] ? Age/Sex: 43 / F ?ADM Date: 06/21/24 ? Loc: HO.MAMMO ? Attending Dr: Vanessa Mendoza MD ? Ordering Physician: Vanessa Glez MD ?? Date of Service: 10/05/23 ?? Procedure(s): US breast BI limited mamm only ?? Accession Number(s): [id number] ? cc: Vanessa Glez MD ? EXAMINATION: [...] unknown age. ? COMPARISON: (Prior mammography at [facility]) ?? Mammography: 03/20/2023, 03/14/2022, 03/01/2021, 01/07/2018, and dating ?? back to 2016 (baseline at [place]). ? TECHNIQUE: ?? Digital mammography is performed [...] abnormal shadowing. No cystic ?? abnormalities. ? US/US breast BI limited mamm only ?? IMPRESSION: [...] 1104 ? DD/ 1052 ? TD/TT: ? Tourist Information Officer: ? Procedure Note Radha, Image - 10/05/2023 [facility] [address] [place] [address] Ultrasound Report Signed Patient: Dulce Lacy EMR#: [id number] : 1980Acct:[id number] Age/Sex: 43 / FADM Date: 10/05/23 Loc: HO.MAMMO Attending Dr: Vanessa Mendoza MD Ordering Physician: Vanessa Glez MD Date of Service: 10/05/23 Procedure(s): US breast BI limited mamm only Accession Number(s): [id number] cc: Vanessa Glez MD EXAMINATION: MM DIAGNOSTIC [...] grandmother, unknown age. COMPARISON: (Prior mammography at [facility]) Mammography: 03/20/2023, 03/14/2022, 03/01/2021, 01/07/2018, and dating back to 2016 (baseline at [place]). TECHNIQUE: Digital mammography is performed in craniocaudal [...] in OV> 10/05/23 1104 DD/ 1052 TD/TT: Tourist Information Officer: Vanessa Mendoza MD IM US PROCEDURES Final Result * (ABNORMAL) Lipid Panel, Standard (09/24/2023 11:59 AM EDT) Triglycerides 60 <150 mg/dL [facility] Comment:Desirable Triglyceri de: less than 150 mg/dLBorderline High Triglyceride 150-199 mg/dLHigh Triglyceride: 200-499 mg/dLVery High Triglyceride: greater than or equal to 5OO mg/dL Cholesterol 220(H) <200 mg/dL [facility] Comment:Desirable Cholestero l: less than 200 mg/dLBorderline High Cholesterol: 200-239 mg/dLHigh Cholesterol: greater than 239 mg/dL LDL Cholesterol Calculated 152(H) <100 mg/dL [facility] Comment:Desirable LDL: less than 100 mg/dLNear Optimal/Above Optimal LDL: 110- 129 mg/dLBorderline High LDL: 130-159 mg/dLHigh LDL: 160-189 mg/dLVery High LDL: greater than or equal to 190 mg/dL HDL Cholesterol 56 >40 mg/dL [facility] Comment:Desirable HDL: great er than 40 mg/dL Note: This HDL assay may give artificially low results in patients with liver disease. Blood Venous blood specimen / Unknown 09/24/2023 11:59 AM EDT 09/24/2023 11:59 AM EDT [facility] E [employer] LAB BLOOD ORDERABLES Final Re sult [facility] [address] [place] [address] [phone] * Hm Pap Smear (05/19/2019) Pap Negative for intraephithelial lesion or malignancy Negative for intraephithelial lesion or malignancy, Other HPV Undetected Undetected, Indeterminate, Quantitative, Not Detected Historical Provider HEALTH MAINTENANCE Final Result from Last 3 Months or Most Recently Relevant to Health Maintenance Insurance [employer] [id number] [place] [address] [facility] AD[place] Care Teams Product Line Manager Relationship Specialty Start Date End Date KingstonKarrie FNP [address] [place] [phone] PCP - General Family Medicine 01/12/21
--- OUTSIDE RECORDS SUMMARY | 2024-07-10 13:53 | XMS_ITS | Encounter Summary ---
Author Organization [facility] Address [address] [place] [address] [address] [place] [address] Care Team Providers Care Charging Plug Placer Name Role Phone Karrie Fernandez Primary Care Provider [phone] Encounter Details Date Type Department Care Team (Latest Contact Info) Description 03/07/2019 Abstract [facility] CONVERSIONS Dental, Provider, DDS Social History [...] as of this encounter Plan of Treatment Upcoming Encounters Date Type Department Care Team (Late st Contact Info) Description 09/15/2024 11:15 AM EDT Office Visit [facility] [address] [place] [address] Karrie Fernandez FNP [address] [place] [address] documented as of this encounter Visit Diagnoses Not on filedocumented in this encounter Care Teams Charging Plug Placer Relationship Specialty Start Date End Date Karrie Fernandez FNP [address] [place] [address] PCP - General Family Medicine 01/12/21 documented as of this encounter
--- OUTSIDE RECORDS SUMMARY | 2024-07-10 13:53 | XMS_ITS | Encounter Summary ---
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 Social [...] documented in this encounter Plan of Treatment Upcoming Encounters Date Type Department Care Team (Late st Contact Info) Description 09/15/2024 11:15 AM EDT Office Visit [facility] MEDICINE [address] [place] [address] Karrie Feranndez [facility] [address] [place] [address] documented as of this encounter Visit Diagnoses Diagnosis Erosion of teeth, 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
--- OUTSIDE RECORDS SUMMARY | 2024-07-10 13:53 | XMS_ITS | Encounter Summary ---
Author Organization [employer] Address [address] [facility] 7t [place] [address] Care Team Providers Care Finance Effectiveness Manager Name Role Phone [place] [facility] Primary Care Provider [phone] Reason for Visit * Reason Comments Med Refill Encounter Details Date Type Department Care Team (Late st Contact Info) Description 02/01/2023 Refill [facility] [address] [place] [address] Macie Hook DO [address] [place] [address] Social History Tobacco Use Types Packs/Day Years [...] Description 09/15/2024 11:15 AM EDT Office Visit [facility] [address] [place] [address] Karrie Fernandez [facility] [address] [place] [address] documented as of this encounter Visit Diagnoses Not on filedocumented in this encounter Care Teams Finance Effectiveness Manager Relationship Specialty Start Date End Date [place] Karrie, APRYL [address] [place] [address] PCP - General Family Medicine 01/12/21 documented as of this encounter
--- OUTSIDE RECORDS SUMMARY | 2024-07-10 13:53 | XMS_ITS | Encounter Summary ---
Author Organization [employer] Address [address] [facility] 7t [place] [address] Care Team Providers Care Warehouser Name Role Phone RebeccaKarrie [facility] Primary Care Provider [phone] Encounter Details Date Type Department Care Team ([facility] st Contact Info) Description 06/13/2024 11:00 AM EST Office Visit [facility] MEDICINE [address] [place], [place] [id number] [place] [facility] [address] [place] [address] Lesion of uvula (Primary Dx); Chronic heel pain, right; Left elbow pain; Encounter for immunization Social History Tobacco Use [...] 11:15 AM EST documented in this encounter Progress Notes * [facility], [facility] - 06/13/2024 11:00 AM EST SUBJECTIVE: Dulce Lacy is a 44 y.o. year old female with chronic pain, venous insufficiency, barretts esophagus, IBS, anxiety/depression who presents for evaluation oral white patches . Denies recentillness, injury, or hospitalization. Acute Concerns: Notice that epiglottis has white patches x 1 month. No throat pain, irritation. Chronic dry throat. Left elbow pain- has referral for PT in place through pain mngmt Right heel pain; chronic Interval History [facility] 05/14/2024. Unremarkable echo in February 2024 with normal ejection fraction. 01/2024 normal pelvic ultrasound for IUD check GI-follows with [facility] for Johnson's esophagus diagnosed 2023. Repeat EGD due 01/03/2027. Continuespantoprazole Social History Social History Narrative Not on file Patient Active Problem List Diagnosis Chiari malformation type I (CMS/HCC) Gastroesophageal reflux disease Irritable bowel syndrome Lower extremity edema Hemangioma of liver Obesity Peripheral venous insufficiency Sensorineural hearing loss of right ear Swelling of both parotid glands Johnson's esophagus with dysplasia Incontinence Other chronic pain Depression Axillary pain, left Disc disease, degenerative, cervical Persistent postural-perceptual dizziness No past surgical history on file. No family history on file. Review of Systems Constitutional: Negative for fever. HENT: Negative. See HPI Respiratory: Negative for shortness of breath. Cardiovascular: Negative for chest pain. Gastrointestinal: Negative for abdominal pain. Musculoskeletal: Positive for arthralgias. Neurological: Negative for dizziness and weakness. OBJECTIVE: There were no vitals filed for this visit. Physical Exam Constitutional: General: She is not in acute distress. Appearance: Normal appearance. HENT: Head: Normocephalic and atraumatic. Right Ear: External ear normal. Left Ear: External ear normal. Nose: Nose normal. Mouth/Throat: Mouth: Mucous membranes are moist. No oral lesions. Tongue: No lesions. Pharynx: Oropharynx is clear. Uvula midline. No oropharyngeal exudate. Eyes: Conjunctiva/sclera: Conjunctivae normal. Cardiovascular: Rate and Rhythm: Normal rate and regular rhythm. Heart sounds: Normal heart sounds. Pulmonary: Effort: Pulmonary effort is normal. Breath sounds: Normal breath sounds. Musculoskeletal: Left elbow: No swelling or deformity. Tenderness present in lateral epicondyle. Right foot: Tenderness present. No swelling or deformity. Left foot: Normal. Comments: Point tenderness midline along plantar aspect of right heel Skin: General: Skin is warm and dry. Neurological: General: No focal deficit present. Mental Status: She is alert and oriented to person, place, and time. Psychiatric: Mood and Affect: Mood normal. Behavior: Behavior normal. ASSESSMENT/PLAN 1. Lesion of uvula (Primary) -No lesion or white patches observed on physical exam, mucosa appears pink and moist, uvula is midline - Provided patient reassurance, continue to monitor if she notices lesion again encouraged to take picture. 2. Chronic heel pain, right -Suspect plantar fasciitis, will obtain x-ray rule out stress fracture - Will hold off on referral to podiatry or physical therapy at this time as patient is already seeing PT for her elbow. -Advised home stretching - XR Foot 3+ Views Right; Future - XR Foot 3+ Views Right 3. Left elbow pain -Consistent with lateral elbow tendinopathy - Follow-up with physical therapy as scheduled - Tylenol ibuprofen, ice 4. Encounter for immunization - FLU VACCINE TRIVALENT (Fluarix) 6 mo + Follow Up: 8 weeks for routine care, patient would also like to discuss weight management. Current Outpatient Medications on File Prior to Visit Medication Sig Dispense Refill Acetaminophen Extra Strength 500 MG tablet TAKE 2 TABLETS BY MOUTH EVERY 6 HOURS NEEDED FOR PAINON A SCALE OF 7 TO 10 BinaxNOW COVID-19 Ag Home Test kit TEST DIRECTED TODAY Bisacodyl EC 5 MG EC tablet TAKE 2 TABLET SPO AT BEDTIME cetirizine (ZyrTEC) 10 MG tablet TAKE 1 TABLET BY MOUTH EVERY DAY NEEDED FOR ALLERGIES 90 tablet0 cholecalciferol (D3) 25 MCG (1000 UT) capsule Take 1 capsule (25 mcg) by mouth Once per day. 90 capsule 3 cyclobenzaprine (Flexeril) 10 MG tablet TAKE 1 TABLET BY MOUTH IF NEEDED IN THE MORNING, AT NOON, AND AT BEDTIME FOR MUSCLE SPASMS 30 tablet 1 dicyclomine (Bentyl) 20 MG tablet Take 20 mg by mouth 4 times daily. docusate sodium (Colace) 100 MG capsule Take 100 mg by mouth 2 times daily. fluticasone (Flonase) 50 MCG/ACT nasal spray SHAKE LIQUID AND USE 1 SPRAY IN EACH NOSTRIL TWICE DAILY 48 g 0 furosemide (Lasix) 20 MG tablet TAKE 1 TABLET BY MOUTH 1 TO 2 TIMES DAILY NEEDED FOR SWELLING 180 tablet 0 gabapentin (Neurontin) 300 MG capsule take 1 capsule by oral route 1 times every day hydrocortisone (Anusol-HC) 2.5 % rectal cream Insert into the rectum 2 times daily. 28 g 0 ibuprofen 600 MG tablet Take 1 tablet by mouth every 6 (six) hours if needed. ketoconazole (NIZOral) 2 % shampoo Levonorgestrel (Mirena, 52 MG,) 20 MCG/DAY intrauterine device Linzess 145 MCG capsule Take 145 mcg by mouth in the morning. meclizine (Antivert) 25 MG tablet Take 25 mg by mouth at bedtime. meloxicam (Mobic) 15 MG tablet Take 15 mg by mouth Once per day. metoclopramide (Reglan) 10 MG tablet Take 10 mg by mouth 3 times daily. metoclopramide (Reglan) 5 MG tablet TAKE 1 TABLET BY MOUTH THREE TIMES DAILY BEFORE A MEAL Myrbetriq 50 MG 24 hr tablet Take 50 mg by mouth in the morning. naloxone (Narcan) 4 mg/0.1 mL nasal spray Administer 1 spray (4 mg) into affected nostril(s) if needed for opioid reversal. May repeat every 2-3 minutes if needed, alternating nostrils, until medicalassistance becomes available. 2 each 3 nortriptyline (Pamelor) 25 MG capsule oxyCODONE-acetaminophen (Percocet) 5-325 MG tablet TAKE 1 TABLET BY MOUTH EVERY 4 TO 6 HOURS NEEDED FOR PAIN pantoprazole (ProtoNix) 40 MG EC tablet Take 40 mg by mouth 2 times daily. polyethylene glycol-electrolytes (Nulytely) 420 g solution Polypodium Leucotomos (Heliocare) 240 MG capsule Take 240 mg by mouth in the morning. 30 capsule 11 senna (Senokot) 8.6 MG tablet TAKE 2 TABLETS BY MOUTH DAILY AT BEDTIME NEEDED FOR CONSTIPATION Simethicone Ultra Strength 180 MG capsule TAKE 1 CAPSULE BY MOUTH THREE TIMES DAILY AFTER MEALS Sodium Fluoride (Sodium Fluoride 5000 PPM) 1.1 % paste APPLY A SMEAR ON THE BRUSH, AND BRUSH THOROUGHLY TWICE DAILY 100 mL 0 Symbicort 80-4.5 MCG/ACT inhaler INHALE 2 PUFFS BY MOUTH TWICE DAILY IN THE MORNING AND IN THE EVENING 10.2 g 1 tacrolimus (Protopic) 0.1 % ointment APPLY TO EYES TWICE DAILY NEEDED tiZANidine (Zanaflex) 4 MG tablet TAKE 1 TABLET BY MOUTH AT BEDTIME NEEDED FOR MUSCLE PASTICITY traMADol (Ultram) 50 MG tablet TAKE 1 TABLET(50 MG) BY MOUTH EVERY 6 HOURS FOR UP TO 7 DAYS NEEDED FOR SEVERE PAIN 28 tablet 0 venlafaxine XR (Effexor XR) 75 MG 24 hr capsule TAKE 1 CAPSULE BY MOUTH EVERY DAY WITH FOOD 60 capsule 3 [DISCONTINUED] traMADol (Ultram) 50 MG tablet TAKE 1 TABLET(50 MG) BY MOUTH EVERY 6 HOURS FOR UP TO7 DAYS NEEDED FOR SEVERE PAIN 28 tablet 0 No current facility-administered medications on file prior to visit. Macanese Translation: Patient is bilingual and declines translation services * Reji Garcia [place] - 06/13/2024 11:00 AM EST 9 documented in this encounter Plan of Treatment Upcoming Encounters Date Type Department Care Team (Late st Contact Info) Description 09/15/2024 11:15 AM EDT Office Visit [facility] [address] [facility] [place] [address] RebeccaKarrie abreu FNP [address] [facility] [place] [address] documented as of this encounter Procedures Procedure [...] PM EST Narrative 06/13/2024 1:48 PM EST ?[facility] ?[address] ?[place] [address] ?XRay Report ? Signed ? Patient: Lacy,Dulce E ?MR#: [id number] ?? [id number] ? : 1980 ?Acct:[id number] ? Age/Sex: 44 / F ?ADM Date: 02/28/25 ? Loc: HO.HHCX ? Attending Dr: Karrie Fernandez HR ANALYST ? Ordering Physician: Karrie Fernandez HR ANALYST ?? Date of Service: 06/13/24 ?? Procedure(s): XR foot RT min 3V ?? Accession Number(s): [id number] ? cc: Karrie Fernandez HR ANALYST ? EXAMINATION: ?? XR FOOT, RIGHT ? [...] DD/ 1211 ? TD/TT: 06/13/24 1215 ? Furnace Loader: ? Procedure Note Jose Lalvarorohiniivan, Image - 06/13/[address] [address] XRay Report Signed Patient: Dulce Lacy EMR#: [id number] : 1980Acct:[id number] Age/Sex: 44 / FADM Date: 06/13/24 Loc: HO.HHCX Attending Dr: Karrie Fernandez HR ANALYST Ordering Physician: Karrie Fernandez Date of Service: 06/13/24 Procedure(s): XR foot RT min 3V Accession Number(s): [id number] cc: Karrie FernandezP EXAMINATION: XR FOOT, RIGHT CLINICAL INFORMATION: Chronic [...] 06/13/24 1345 DD/ 1211 TD/TT: 06/13/24 1215 Furnace Loader: [facility] IMG XR PROCEDURES Final Resul t * POCT rapid strep A manually resulted (06/13/2024 11:41 AM EST) Rapid Strep A Screen Negative Negative, None Detected Swab 06/13/2024 11:4 1 AM EST Result [facility] POINT OF CARE TEST ENTER/EDIT ORDERABLES Final Result documented in this encounter Visit Diagnoses Diagnosis Lesion of uvula- Primary Chronic heel pain, right Left elbow pain Pain in joint, upper arm Encounter for immunization documented in this encounter Additional Health Concerns Assessment Noted Time PHQ-9 Depression Total Score: 0 09/21/19 24 9:42 AM EDT documented as of this encounter Care Teams Warehouser Relationship Specialty Start Date End Date RebeccaKarrie abreu FNP [address] [place] [id number] PCP - General Family Medicine 01/12/21 documented as of this encounter
--- OUTSIDE RECORDS SUMMARY | 2024-07-10 13:53 | XMS_ITS | Encounter Summary ---
Author Organization [employer] Address 75 [facility] 7t [place] [address] Care Team Providers Care Public Information Relations Manager Name Role Phone [facility] Primary Care Provider [phone] Encounter Details Date Type Department Care Team [...] Description 09/15/2024 11:15 AM EDT Office Visit [facility] MEDICINE [address] [place] [address] Karrie Fernandez FNP [address] [place] [address] documented as of this encounter Visit Diagnoses Not on filedocumented in this encounter Additional Health Concerns Assessment Noted Time PHQ-9 Depression Total Score: 0 09/21/19 24 9:42 AM EDT documented as of this encounter Care Teams Public Information Relations Manager Relationship Specialty Start Date End Date Karrie Fernandez FNP [address] [place] [address] PCP - General Family Medicine 01/12/21 documented as of this encounter
--- OUTSIDE RECORDS SUMMARY | 2024-07-10 13:53 | XMS_ITS | Encounter Summary ---
Author Organization [employer] Address [address] [facility] 7t [place] [address] Care Team Providers Care Parts Cleaner Name Role Phone [facility] Primary Care Provider [phone] Reason for Visit * Reason Onset Date Comments Nurse Triage 06/09/2024 Results 06/09/2024 Encounter Details Date Type Department Care Team ([facility] st Contact Info) Description 06/09/2024 Telephone [facility] MEDICINE [address] [place], [place] [phone] [facility] [address] [place] [address] Nurse Triage; Results Social History Tobacco Use Types Packs/Day Years [...] encounter Miscellaneous Notes * Telephone Encounter - Carole Patel RN - 06/16/2024 2:18 PM EST Images from the original note were not included. TC to pt to relay message from provider below. Using [employer] ID# [id number] for [place]. Pt stated understanding and denies further questions or concerns [facility], [facility] P [facility] Red Team Nurses Please advise patient that x-ray does show the presence of a bone spur on her heel as she was previously told. Please encourage trial of OTC heel cushion inserts to reduce pain. Thank you! * Telephone Encounter - Carole Patel RN - 06/16/2024 2:18 PM EST ----- Message from [facility] sent at 06/16/2024 1:13 PM EST ----- Please advise patient that x-ray does show the presence of a bone spur on her heel as she was previously told. Please encourage trial of OTC heel cushion inserts to reduce pain. Thank you! * Telephone Encounter - Mercedes Hurley RN [...] advised to increase liquids to 64 oz daily , warm drinks decaf tea, broth. Pt agrees with disposition. ASK with PCP 06/13/24 @ 1100am. Insuranceis verified as active prior to booking. Protocol [...] caller accepted this outcome. Contact pt at [phone] documented in this encounter Plan of Treatment Upcoming Encounters Date Type Department Care Team (Late st Contact Info) Description 09/15/2024 11:15 AM EDT Office Visit [facility] MED[facility] [address] [place] [address] Karrie Fernandez FNP [address] [place] [address] documented as of this encounter Visit Diagnoses Diagnosis Johnson's esophagus with dysplasia documented in this encounter Additional Health Concerns Assessment Noted Time PHQ-9 Depression Total Score: 0 09/21/19 24 9:42 AM EDT documented as of this encounter Care Teams Parts Cleaner Relationship Specialty Start Date End Date Karrie Fernandez FNP [address] [place] [address] PCP - General Family Medicine 01/12/21 documented as of this encounter
--- OUTSIDE RECORDS SUMMARY | 2024-07-10 13:53 | XMS_ITS | Encounter Summary ---
Author Organization [employer] Address [address] [facility] 7t [place] [address] Care Team Providers Care Vp Software Support Name Role Phone [place] [facility] Primary Care Provider [phone] Reason for Visit * Reason Comments Med Refill Encounter Details Date Type Department Care Team (Late Contact Info) Description 02/21/2023 Refill [facility] CH[facility] ADULT DENTAL [address] [place] [address] Sixto Reno DDS [address] [place] [address] Erosion of teeth, 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 Social [...] Encounters Date Type Department Care Team (Late Contact Info) Description 09/15/2024 11:15 AM EDT Office Visit [facility] MEDICINE [address] [place] [address] Karrie Fernandez FNP [address] [place] [address] documented as of this encounter Visit Diagnoses Diagnosis Erosion of teeth, 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 documented in this encounter Care Teams Vp Software Support Relationship Specialty Start Date End Date [place] [address] PCP - General Family Medicine 01/12/21 documented as of this encounter
--- OUTSIDE RECORDS SUMMARY | 2024-07-10 13:54 | XMS_ITS | Clinical Summary ---
Author Organization [facility] Address [address] [place] [address] Phone Care Team Providers Care Stuffer Name Role Phone Ed Mario MD Primary Care Provi percy Allergies Active Allergy Reactions Criticality Noted Date Comments Divalproex 06/05/2017 Pravastatin Weakness 12/06/2020 Medications cholecalcifero l (VITAMIN D-3) 50 mcg (2,000 unit) capsule Take 1 tablet by mouth daily. 0 Active levonorgestreL (Mirena) 21 mcg/24hr (up to 8 yrs) 52 mg IUD by Intrauterine route continuous. 1 Active tramadol HCl (TRAMADOL ORAL) TRAMADOL HCL OR: Take by mouth Active Symbicort 80-4.5 mcg/actuation inhaler Inhale 2 puffs by mouth 2 (two) times a day. 4 Active Linzess 145 mcg capsule Take 1 capsule (145 mcg total) by mouth 1 (one) time each day in the morning. Active Creon 36,000-114,000 - 180,000 unit capsule,delaye d release(DR/EC) TAKE 2 CAPSULES BY MOUTH TWICE [...] MOUTH AT BEDTIME FOR CONSTIPATION Active simethicone (MYLICON,GAS-X ) 180 mg capsule Take 1 capsule (180 mg total) by mouth 3 (three) times a day. Active tiZANidine (ZANAFLEX) 4 mg tablet TAKE 1 TABLET BY MOUTH AT BEDTIME NEEDED FOR MUSCLE PASTICITY 2 Active venlafaxine XR (EFFEXOR-XR) 75 mg 24 hr capsule Take 1 capsule (75 mg total) by mouth 1 (one) time each day. with food Active metroNIDAZOLE (METROGEL) 0.75 % (37.5mg/5 gram) vaginal gel 1 full applicator for 5days at bedtime 0 025 Discontin ued(Thera py completed ) OMEPRAZOLE ORAL Take by mouth. 025 Discontin ued(Dupli estelita order) Active Problems Problem Noted Date Diagnosed Date [...] with trace mitral/tricuspid/aortic regurgitation. Last seen by [facility] cardiology 02/2020. Obesity 09/12/2011 Encounters Date Type Department Care Team Description 06/16/2024 9:45 AM EST Office Visit Obstetrics & Gynecology - [facility] [address] [place] [address] Mckenna Espinoza CNM Encounter for well woman exam with routine gynecological exam (Primary Dx); Screening breast examination; Screening for cervical cancer; Screen for STD (sexually transmitted disease); Hot flashes 04/23/2024 10:00 AM EST - 04/23/2024 11:59 PM EST Hospital Encounter [facility] Ultrasound [address] [place] [address] Presence of (intrauterine) contraceptive device [...] (Afluria) 3yo and older 02/28/2022,03/16/2021,01/23/2020,01/22 Influenza trivalent, 0.5mL, preservative free (Fluarix; FluLaval; Fluzone) ages 6mo and older (Afluria) 3 years and older 06/13/2024 Influenza trivalent, with pr eservative (Fluzone; Afluria) [...] HISTORICAL TUMMY TUCK OTHER SURGICAL HISTORY PROCEDURE: SC PREPARATION MOULAGE CUSTOM BREAST IMPLANT BREAST SURGERY Bilateral PROCEDURE: SC UNLISTED PROCEDURE BREAST; COMMENT: 2017 OTHER SURGICAL HISTORY 2018 Bilateral PROCEDURE: IMPLANT BREAST SILICONE/EQ HEMORRHOID SURGERY 04/16/2023 - 04/15/2024 Medical History Medical History Date Comments Abnormal [...] file Not on file Not on file Obstetrics History Para Term AB IAB SAB Ectopic Multiple Livin g Live Births 4 3 3 1 1 3 3 Date Outcome GA Total Labor Labor/2nd/3rd Weight Sex Type Anes PTL Nicole A1 A5 Name Clin SAB 1995 Term F Vag-S pont Living 1997 Term M Vag-S pont Living 2011 Term F Vag-S pont Living Last Filed Vital Signs Vital Sign Reading [...] Mass Index 37.38 06/16/2024 9:32 AM EST Plan of Treatment Health Maintenance Due Date Last Done Comments Hepatitis B Vaccines (1 of 3 - 19+ 3-dose series) 1997 12/30/2007, 09/23/2007, 08/23/2007 Colorectal Cancer Screening: Colonoscopy 03/15/2022 Social Influencers of Health Screening 03/15/2022 COVID-19 Vaccine ( season) 2023 04/25/2021, 08/27/2020, 07/30/2020 Depression Screening 09/20/2024 09/21/2023 Breast Cancer Screening 03/20/2025 03/20/20 23, 03/14/2022, 03/01/2021 DTaP,Tdap,and Td Vaccines (7 - Td or Tdap) 01/22/2027 01/22/2017, 08/06/2006, 06/15/1983, Additional history exists Cholesterol Screening (Lipid Panel) 09/23/2028 09/24/2023 Cervical Cancer Screening: HPV 06/16/2029 06/16/2024, 05/19/2019 IPV Vaccines Completed 06/15/1983, 04/1980, 1978, Additional history exists MMR Vaccines Completed 09/14/1990, 09/15/1979 Varicella Vaccines Aged Out 09/23/2007, 08/23/2007 No longer eligible based on patient's age to complete this topic Meningococcal ACWY Vaccine Aged Out 08/01/2018 N o longer eligible based on patient's age to complete this topic Hepatitis A Vaccines Aged Out 03/16/2021, 01/29/20 19 No longer eligible based on patient's age to complete this topic Pneumococcal Vaccine: Pediatrics (0 to 5 Years) and At-Risk Patients (6 to 64 Years) Aged Out 09/21/2023 No longer eligible based on patient's age to complete this topic Influenza Vaccine Completed 06/13/2024, , 03/16/2021, Additional history exists HIV Screening Completed 06/16/2024, 08/28/2022 Hepatitis C Screening Completed 06/16/2024, 023 HIB Vaccines Aged Out No longer eligi [...] Procedure Name Priority Date/Time Associated Diagnosis Comments CBC WITH AUTO DIFFERENTIAL Routine 06/16/2024 10:15 AM EST Encounter for well woman exam with routine gynecological exam Hot flashes CBC AND DIFFERENTIAL Routine 06/16/2024 10:15 AM EST Encounter for well woman exam with routine gynecological exam Hot flashes FOLLICLE STIMULATING HORMONE Routine 06/16/2024 10:15 AM EST Encounter for well woman exam with routine gynecological exam Hot flashes TREPONEMA PALLIDUM ANTIBODY WITH REFLEX TO RPR AND PARTICLE AGGLUTINATION Routine 06/16/2024 10:15 AM EST Encounter for well woman exam with routine gynecological exam Screen for STD (sexually transmitted disease) HIV 1, 2 ANTIBODY, P24 ANTIGEN WITH REFLEX TO DIFFERENTIATION Routine 06/16/2024 10:15 AM EST Encounter for well woman exam with routine gynecological exam Screen for STD (sexually transmitted disease) HEPATITIS C ANTIBODY Routine 06/16/2024 10:15 AM EST Encounter for well woman exam with routine gynecological exam Screen for STD (sexually transmitted disease) PAP SMEAR Routine 06/16/2024 9:51 AM EST Encounter for well woman exam with routine gynecological exam Screening for cervical cancer HPV WITH REFLEX GENOTYPE Routine 06/16/2024 9:51 AM EST Encounter for well woman exam with routine gynecological exam Screening for cervical cancer CHLAMYDIA TRACHOMATIS AND NEISSERIA GONORRHOEAE PCR Routine 06/16/2024 9:51 AM EST Encounter for well woman exam with routine gynecological exam Screen for STD (sexually transmitted disease) US PELVIS TRANSVAGINAL NON OB Routine 04/23/2024 10:48 AM EST Presence of (intrauterine) contraceptive device SCREENING MAMMOGRAPHY BI 2-VIEW BREAST INC CAD Routine 03/20/2023 10:35 AM EST Encounter for gynecological examination (general) (routine) without abnormal findings Encounter for screening mammogram for malignant neoplasm of breast from Last 3 Months or Most Recently Relevant to Health Maintenance Results * Hepatitis C antibody (06/16/2024 10:15 AM EST) Hepatitis C Antibody Negative Negative LAB CHEMISTRY METHOD 06/16/2024 12:42 PM EST [facility] Blood Venous blood specimen / Unknown Venipuncture / Unknown 06/16/2024 10:15 AM EST 06/16/2024 11:15 AM EST [facility] LAB BLOOD ORDERABLES Final Re sult Performing Organization Address [facility]/ZIP Co de Phone Number [facility] [address] [place] [address], [place] [phone] * HIV 1,2 antibody, p24 antigen with reflex to differentiation (06/16/2024 10:15 AM EST) HIV Combo AB/AG Negative Negative LAB CHEMISTRY METHOD 06/16/2024 12:43 PM EST [facility] Blood Venous blood specimen / Unknown Venipuncture / Unknown 06/16/2024 10:15 AM EST 06/16/2024 11:15 AM EST Narrative [facility] - 06/16/2024 12:43 PM EST This assay is a 4th generation assay allowing for earlier detection of HIV infection by detecting the presence of the HIV-1 p24 antigen as well as the traditional antibodies to HIV type 1 (including group O) and type 2. ??Use of a 4th generation assay is the current CDC recommendation for HIV screening. [facility] LAB BLOOD ORDERABLES Final Re sult Performing Organization Address City/[facility]/ZIP Co de Phone Number [facility] [address] [place] [address], [place] [phone] * Treponema pallidum antibody with reflex to RPR and particle agglutination (06/16/2024 10:15 AM EST) T. Pallidum Antibodies Negative Negative LAB CHEMISTRY METHOD 06/16/2024 12:14 PM EST [facility] Blood Venous blood specimen / Unknown Venipuncture / Unknown 06/16/2024 10:15 AM EST 06/16/2024 11:15 AM EST us Mckenna Espinoza CN LAB BLOOD ORDERABLES Final Re sult [facility] [address] [place] [address], * CBC auto differential (06/16/2024 10:15 AM EST) Pathologist [facility] WBC 6.2 4.8 - 10.8 K/mcL LAB HEMETOLOGY METHOD 06/16/2024 11:25 AM EST [facility] RBC 4.50 3.80 - 4.80 M/mcL LAB HEMETOLOGY METHOD 06/16/2024 11:25 AM [facility] Hemoglobin 14.1 11.5 - 16.0 g/dL LAB HEMETOLOGY METHOD 06/16/2024 11:25 AM [facility] Hematocrit 43.5 35.0 - 47.0 % LAB HEMETOLOGY METHOD 06/16/2024 11:25 AM [facility] MCV 96.5 79.0 - 98.0 FL LAB HEMETOLOGY METHOD 06/16/2024 11:25 AM [facility] MCH 31.3 27.0 - 32.0 pcg LAB HEMETOLOGY METHOD 06/16/2024 11:25 AM [facility] MCHC 32.4 32.0 - 37.0 g/dL LAB HEMETOLOGY METHOD 06/16/2024 11:25 AM [facility] RDW 12.4 11.0 - 15.0 % LAB HEMETOLOGY METHOD 06/16/2024 11:25 AM [facility] Platelets 289 130 - 400 K/mcL LAB HEMETOLOGY METHOD 06/16/2024 11:25 AM [facility] MPV 10.2 7.0 - 11.0 FL LAB HEMETOLOGY METHOD 06/16/2024 11:25 AM [facility] NRBC 0.0 <1.0 % LAB HEMETOLOGY METHOD 06/16/2024 11:25 AM [facility] NRBC Absolute 0.00 <0.10 K/mcL LAB HEMETOLOGY METHOD 06/16/2024 11:25 AM [facility] Neutrophils Relative 54.3 % LAB HEMETOLOGY METHOD 06/16/2024 11:25 AM [facility] Lymphocytes Relative 33.0 % LAB HEMETOLOGY METHOD 06/16/2024 11:25 AM [facility] Monocytes Relative 10.5 % LAB HEMETOLOGY METHOD 06/16/2024 11:25 AM [facility] Eosinophils Relative 1.3 % LAB HEMETOLOGY METHOD 06/16/2024 11:25 AM [facility] Basophils Relative 0.6 % LAB HEMETOLOGY METHOD 06/16/2024 11:25 AM [facility] Immature Granulocytes Relative 0.3 % LAB HEMETOLOGY METHOD 06/16/2024 11:25 AM [facility] Neutrophils Absolute 3.38 1.50 - 7.00 K/mcL LAB HEMETOLOGY METHOD 06/16/2024 11:25 AM [facility] Lymphocytes Absolute 2.05 1.00 - 5.00 K/mcL LAB HEMETOLOGY METHOD 06/16/2024 11:25 AM [facility] Monocytes Absolute 0.65 0.20 - 1.00 K/mcL LAB HEMETOLOGY METHOD 06/16/2024 11:25 AM [facility] Eosinophils Absolute 0.08 0.00 - 0.50 K/mcL LAB HEMETOLOGY METHOD 06/16/2024 11:25 AM [facility] Basophils Absolute 0.04 0.00 - 0.20 K/[facility] LAB HEMETOLOGY METHOD 06/16/2024 11:25 AM EST [facility] Immature Granulocytes Absolute 0.02 0.00 - 0.03 K/[facility] LAB HEMETOLOGY METHOD 06/16/2024 11:25 AM EST [facility] Blood Venous blood specimen / Unknown Venipuncture / Unknown 06/16/2024 10:15 AM EST 06/16/2024 11:15 AM EST [facility] LAB BLOOD ORDERABLES Final Re sult Performing Organization Address City/[facility]/ZIP Co de Phone Number [facility] [address] [place] [address], [place] [phone] * Follicle stimulating hormone (06/16/2024 10:15 AM EST) Follicle Stimulating Hormone 7.0 See Comment mIU/mL LAB CHEMISTRY METHOD 06/16/2024 11:52 AM EST [facility] Comment: FSH REFERENCE RANGES (MIU/ML) FEMALES NORMALLY MENSTRUATING: FOLLICULAR PHASE ??2.3 - 12.6 MIDCYCLE PEAK ? 5.2 - 17.5 LUTEAL PHASE ?1.7 - ??9.5 POSTMENOPAUSAL: ON HRT ?5.9 - ??72.8 UNTREATED ?12.7 - 132.2 Blood Venous blood specimen / Unknown Venipuncture / Unknown 06/16/2024 10:15 AM EST 06/16/2024 11:15 AM EST [facility] LAB BLOOD ORDERABLES Final Re sult [facility] [address] [place] [address], [place] [phone] * HPV with reflex genotype (06/16/2024 9:51 AM EST) HPV Negative Negative LAB MICROBIOLOGY METHOD 06/18/2024 3:03 PM EST [facility] Brushing/Spatula Cervix uteri structure / Unknown 06/16/2024 9:51 AM EST 06/17/2024 6:06 AM EST [facility] MOLECULAR DIAGNOSTICS ORD ERABLES Final Result Performing Organization Address City/[facility]/ZIP Co de Phone Number [facility] [address] [place] [address], [place] [phone] * Chlamydia trachomatis and Neisseria gonorrhoeae molecular study (06/16/2024 9:51 AM EST) Pathologist [facility] Neisseria gonorrhoeae PCR Negative Negative LAB MOLECULAR DIAGNOSTICS METHOD 06/16/2024 2:02 PM EST [facility] Chlamydia trachomatis PCR Negative Negative LAB MOLECULAR DIAGNOSTICS METHOD 06/16/2024 2:02 PM [facility] Swab Cervix uteri structure / Unknown Non-blood Collection / Unknown 06/16/2024 9:51 AM EST 06/16/2024 11:36 AM EST Mckenna Espinoza CNM LAB MICROBIOLOGY - GENERAL OR DERABLES Final Result Performing Organization Address City/[facility]/ZIP Co de Phone Number [facility] [address] [place] [address], [place] [phone] * Pap smear (06/16/2024 9:51 AM EST) Interpretation Negative for intraepithelial lesion or malignancy 06/18/2024 2:02 PM EST [facility] General Categorization Negative 06/18/2024 2:02 PM EST [facility] Other Findings Shift in shirley suggestive of bacterial vaginosis 06/18/2024 2:02 PM [facility] Specimen Adequacy Satisfactory for evaluation, endocervical/gentile sformation zone component present 06/18/2024 2:02 PM [facility] Pap Methodology Liquid Based Pap Test 06/18/2024 2:02 PM [facility] Disclaimer The Pap test is a screening test which carries an inherent false negative rate. These test results should be correlated with the patient's clinical findings and history. This Pap test was processed using an automated screening system. Technical cytopathology services provided by [facility], at [address] [place] [address] (CLIA # [id number]/Dmitry Barnes MD, Lead Technical Architect.) 06/18/2024 2:02 PM [facility] Console Pap Interpretation Reported 06/18/2024 2:02 PM [facility] Brushing/Spatula Cervix uteri structure / Unknown 06/16/2024 9:51 AM EST 06/17/2024 6:06 AM EST [facility] Espino[facility] CYTOLOGY ORDERABLES Final Result [facility] [address] [place] [address], [place] [phone] * US Pelvis Transvaginal Non OB (04/23/2024 10:48 AM EST) Anatomical Region Laterality Modality Body Ultrasound 04/30/2024 2:26 PM EST Impressions 04/30/2024 2:30 PM EST Impression: 1. IUD well-positioned. 2. Normal appearance of the ovaries for age. 3. Trace free fluid in the cul-de-sac, likely physiologic. Teleshalonda SHOEMAKER ([id number]) -------- FINAL REPORT -------- Dictated By: Veronica Gifford Dictated Date: 04/30/2024 14:26 ET Assigned Physician: Veronica Gifford Reviewed and Electronically Signed By: Veronica Gifford Signed Date: 04/30/2024 14:30 ET Workstation ID: [id number] Transcribed By: Self Edit Transcribed Date: 04/30/2024 [...] in the cul-de-sac, likely physiologic. Telerad NAVID ([id number]) -------- FINAL REPORT -------- Dictated By: Veronica Gifford Dictated Date: 04/30/2024 14:26 ET Assigned Physician: Veronica Gifford Reviewed and Electronically Signed By: Veronica Gifford Signed Date: 04/30/2024 14:30 ET Workstation ID: [id number] Transcribed By: Self Edit Transcribed Date: 04/30/2024 [...] annual screening mammography is recommended Procedure Note Jaswant, Malavika B, MD - 2023 This is a summary [...] Routine annual screening mammography is recommended Isatu Macie CN IMG XR PROCEDURES Final Result from Last 3 Months or Most Recently Relevant to Health Maintenance Insurance [facility] [employer] N[place]USTIN EDUARD [id number] Care Teams Stuffer Relationship Specialty Start Date End Date Ed Mario MD [address] [place] [address] [place] [id number] PCP - General Internal Medicine 04/05/21
--- OUTSIDE RECORDS SUMMARY | 2024-07-10 13:54 | XMS_ITS | Encounter Summary ---
Author Organization [employer] [facility] Address [address] [place] [address] 7 [place] [address] Care Team Providers Care Shovel Oiler Name Role Phone Karrie Fernandez Primary Care Provider [phone] Encounter Details Date Type Department Care Team (Latest Contact Info) Description 04/23/2020 Abstract [facility] CONVERSIONS Dental, Provider, DDS Social History [...] Description 09/15/2024 11:15 AM EDT Office Visit [facility] [address] [place] [address] Karrie Fernandez FNP [address] [place] [address] documented as of this encounter Visit Diagnoses Not on filedocumented in this encounter Care Teams Shovel Oiler Relationship Specialty Start Date End Date Karrie Fernandez FNP [address] [place] [address] PCP - General Family Medicine 01/12/21 documented as of this encounter
--- OUTSIDE RECORDS SUMMARY | 2024-07-10 13:54 | XMS_ITS | Encounter Summary ---
Author Organization [employer] Address [address] [facility] 7 [place] [address] Care Team Providers Care Ditch Repairer Name Role Phone [facility] Primary Care Provider [phone] Reason for Visit * Reason Onset Date Comments Letter for School/Work 10/30/2022 Encounter Details Date Type Department Care Team ([facility] st Contact Info) Description 10/30/2022 Telephone [facility] [address] [place], [place] [phone] [employer] [address] [place] [address] Letter for School/Work Social History Tobacco Use [...] to provider EDUARD. Please contact pt at [phone] Damien Shawaker Pt states letter is to be able to go back to work . documented in this encounter Plan of Treatment Upcoming Encounters Date Type Department Care Team (Late st Contact Info) Description 09/15/2024 11:15 AM EDT Office Visit [facility] [address] [place] [address] Karrie Fernandez FNP [address] [place] [address] documented as of this encounter Visit Diagnoses Not on filedocumented in this encounter Care Teams Ditch Repairer Relationship Specialty Start Date End Date Karrie Fernandez FNP [address] [place] [address] PCP - General Family Medicine 01/12/21 documented as of this encounter
== END 2024-07-10 11:25 | disposition home or self-care (01) ==
LOC: HO.HGI 10:38
PROVIDERS: PCP Registered Nurse; Visit Provider Nurse Practitioner
DX: K21.9 Gastro-esophageal reflux disease without esophagitis (principal); K59.04 Chronic idiopathic constipation; D18.03 Hemangioma of intra-abdominal structures
CPT/HCPCS: 99213

== ENCOUNTER → 2024-07-10 10:37 | Outpatient (BNVA) | payer OTHER, SELFPAY | PROVIDERS: PCP Registered Nurse; Visit Provider Nurse Practitioner | DX: K59.04 Chronic idiopathic constipation (principal); K21.9 Gastro-esophageal reflux disease without esophagitis; R14.0 Abdominal distension (gaseous); K22.70 Barrett's esophagus without dysplasia; K59.9 Functional intestinal disorder, unspecified; D18.03 Hemangioma of intra-abdominal structures | CPT/HCPCS: 99212 ==

== ENCOUNTER 2024-10-01 09:03 | Outpatient (REF) | payer OTHER, SELFPAY ==
--- NOTE | ~2024-10-01 | US_ITS ---
CLINICAL HISTORY: D18.03 - Hemangioma of intra-abdominal structures US abdomen complete with duplex and color Doppler Comparison: None Findings: The visualized pancreas, aorta, and inferior vena cava are unremarkable. Liver normal size and echotexture. Right lobe 15.7 cm length. Echogenic lesions right lobe probable hemangioma measuring 10 x 6 x 10 mm and 8 x 6 x 8 mm. Similar lesion left lobe measuring 12 x 9 x 11 mm Common duct 3.0 mm diameter. Physiologic distention of the gallbladder. No gallstones or sludge. No gallbladder wall thickening. No pericholecystic fluid. No sonographic Lake sign. Main portal vein antegrade. Right kidney normal size, 11.3 cm in length. Normal cortical width and echotexture. No solid or cystic renal masses. No nephrolithiasis. No hydronephrosis. Left kidney normal, 10.9 cm in length. Normal cortical width and echotexture. No solid or cystic renal masses. No nephrolithiasis. No hydronephrosis. Spleen measures 10.3 cm. No splenic masses. No ascites. No lymphadenopathy. Impression: 1. A total of 3 probable hepatic hemangiomas multiphase contrast-enhanced MRI of the abdomen would be confirmatory. This document has been electronically signed by: Andre Macias MD on 10/02/2024 08:48:17
--- OUTSIDE RECORDS SUMMARY | 2024-10-01 09:43 | XMS_ITS | Encounter Summary ---
Author Organization [employer] Address [address] [facility] [address]t [place] [address] Care Team Providers Care Pastry Sous Chef Name Role Phone Rebecca Karrie PLATE GAUGER Primary Care Provider [phone] Reason for Visit * Reason Comments Med Refill Encounter Details Date Type Department Care Team (Late Contact Info) Description 02/21/2023 Refill [facility] [address] [place] [address] Sixto Reno DDS [address] [place] [address] Erosion of teeth, 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 Social [...] Department Care Team (Late Contact Info) Description 10/20/2024 11:30 AM EDT Clinical Support [facility] [address] [place] [address] Griselda Roger, SUJATA documented as of this encounter Visit Diagnoses Diagnosis Erosion of teeth, 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 documented in this encounter Care Teams Pastry Sous Chef Relationship Specialty Start Date End Date Karrie Fernandez FNP [address] [place] [address] PCP - General Family Medicine 01/12/21 documented as of this encounter
== END 2024-10-01 09:04 | disposition home or self-care (01) ==
LOC: HO.US 09:03
PROVIDERS: PCP Registered Nurse; Visit Provider Nurse Practitioner
DX: D18.03 Hemangioma of intra-abdominal structures (principal)
CPT/HCPCS: 76700

== ENCOUNTER → 2024-10-01 09:05 | Outpatient (BNV) | payer OTHER, SELFPAY | PROVIDERS: PCP Registered Nurse; Visit Provider Radiology Diagnostic Radiology | DX: D18.03 Hemangioma of intra-abdominal structures (principal) | CPT/HCPCS: 76700 ==

== ENCOUNTER 2025-01-06 09:35 | Outpatient (AMB) | payer OTHER, SELFPAY ==
[2025-01-06 09:41] VITALS: BP 120/77; PULSE 73; BMI 35.7
--- NOTE | 2025-01-06 09:41 | MHC.OFFVIS ---
Vital Signs 01/06/25 09:41 Height 5 ft 3 in Weight 201 lb 11.567 oz BMI 35.7 BP 120/77 Blood Pressure Location Rt brachial Position Sitting Pulse 73 Intake Visit Reasons: CIC, GERD, US results Intake Note: Dulce presents in follow up of CIC and for US results. CC: Patient reports that she is doing well, but she needs refill on her medications. Raw Scales Operator Required: No Accompanied by: Self / Same As Patient Allergies divalproex sodium (From DEPAKOTE) Allergy (Unknown, Verified 01/06/25 09:52) FACIAL SWELLING, swelling of face pravastatin (PRAVASTATIN) Allergy (Unknown, Verified 01/06/25 09:52) MUSCLE ACHES, body aches 14-Count Warmer Allergy (Unknown, Uncoded 09/13/23 10:40) Unknown HPI HPI CIC, GERD, US results: Details: Assessment & Plan (1) GERD (gastroesophageal reflux disease): Code(s): K21.9 - Gastro-esophageal reflux disease without esophagitis Category: Medical (2) Chronic idiopathic constipation: Code(s): K59.04 - Chronic idiopathic constipation Category: Medical (3) Liver hemangioma: Code(s): D18.03 - Hemangioma of intra-abdominal structures Category: Medical Plan ARABIC # [id number] She continues on her Reglan which should be scheduled 4 times a day and her Creon. She is also on pantoprazole, simethicone, and dicyclomine and Linzess with senna and Colace. She found that if she takes some senna at night along with 1 Dulcolax and then her Linzess in the morning her stool is actually less watery and she is moving her bowels better. Because of this we will add the bisacodyl back in. She had some liver hemangiomas in the past and we will get an ultrasound just to check on these even though they are not terribly concerning. Return office visit in 6 months Orders: Orders US abdomen complete Today D18.03 - Hemangioma of intra-abdominal structures Medications: New bisacodyl (Dulcolax (bisacodyl)) 5 mg PO BEDTIME 30 tabs 6RF 30 days K59.04 - Chronic idiopathic constipation Refilled docusate sodium (Colace) 100 mg PO BID 60 caps 2RF hydrocortisone 2.5% (Proctosol HC) BE SURE TO INCLUDE RECTAL APPICATOR!! 1 appl MA BID 30 grams 6RF hemorrhoids K64.9 - Unspecified hemorrhoids [id number] 36,000-114,000- 180,000 unit (Creon) administer with meals and/or snacks 2 caps PO BID 120 caps 6RF pantoprazole 40 mg PO BID 60 tabs 6RF K21.9 - Gastro-esophageal reflux disease without esophagitis, K22.70 - Johnson's esophagus without dysplasia sennosides (senna) 25.8 mg (3 x 8.6 mg) PO BEDTIME 270 caps 6RF constipation 90 days K59.04 - Chronic idiopathic constipation linaclotide (Linzess) 145 mcg PO QAM 30 caps 6RF K59.04 - Chronic idiopathic constipation, R14.0 - Abdominal distension (gaseous) metoclopramide HCl (Reglan) 10 mg PO QID 120 tabs 6RF K59.9 - Functional intestinal disorder, unspecified simethicone after meals 180 mg PO .TIDAC 90 caps 6RF 30 days K59.04 - Chronic idiopathic constipation, R14.0 - Abdominal distension (gaseous) Discontinued dicyclomine Discontinued Reason: Doctor's Order 20 mg PO QID 30 days 120 tabs 6RF R10.9 - Unspecified abdominal pain US [facility] 10/02/24 Findings: The visualized pancreas, aorta, and inferior vena cava are unremarkable. Liver normal size and echotexture. Right lobe 15.7 cm length. Echogenic lesions right lobe probable hemangioma measuring 10 x 6 x 10 mm and 8 x 6 x 8 mm. Similar lesion left lobe measuring 12 x 9 x 11 mm Common duct 3.0 mm diameter. Physiologic distention of the gallbladder. No gallstones or sludge. No gallbladder wall thickening. No pericholecystic fluid. No sonographic Lake sign. Main portal vein antegrade. Right kidney normal size, 11.3 cm in length. Normal cortical width and echotexture. No solid or cystic renal masses. No nephrolithiasis. No hydronephrosis. Left kidney normal, 10.9 cm in length. Normal cortical width and echotexture. No solid or cystic renal masses. No nephrolithiasis. No hydronephrosis. Spleen measures 10.3 cm. No splenic masses. No ascites. No lymphadenopathy. Impression: 1. A total of 3 probable hepatic hemangiomas multiphase contrast-enhanced MRI of the abdomen would be confirmatory. TODAYS VISIT [facility] Medical History (Updated 01/06/25 @ 10:01 by KATELYN Rowell) Diarrhea Right tennis elbow Tennis elbow Spondylosis of cervical spine Family history of colon cancer in mother Internal and external bleeding hemorrhoids Family history of polyps in the colon Rosacea Dysuria Urinary urgency Urge urinary incontinence Small bowel motility disorder Liver cyst Macromastia Shoulder pain Spondylosis of cervical spine Swelling Surgical History S/P dissection of cervical lymph nodes Status post laser ablation of incompetent vein History of bladder suspension procedure Family History Mother Colon polyps Social History Comment: counts correct Patient Tobacco Use Status: Never used Tobacco e-Cigarette/Vaping Use: Never Used Review of Systems Const Denies fatigue, Denies fever(s), Denies night sweats, Denies poor appetite and Denies weight loss ENT Denies dental pain, Denies dysphagia, Reports hearing loss, Denies mouth pain, Denies odynophagia, Denies throat swelling, Denies tongue swelling and Reports other (Dentition adequate) Card Reports no additional complaints Resp Reports no additional complaints GI Details: Denies abdominal pain, Denies melena, Reports bloating, Denies hematochezia, Reports constipation, Denies GI cramping, Denies dysphagia, Denies excessive flatus, Denies early satiety, Reports heartburn, Denies diarrhea, Denies nausea, Denies odynophagia, Denies vomiting and Denies hematemesis Musc Reports myalgias Skin/Breast Denies pruritus, Denies lesions, Denies rash and Denies jaundice Neuro Denies Abnormal speech present Endo Denies fatigue Aller/Immun Denies throat swelling and Denies tongue swelling Physical Exam Vital Signs: Last Vital Signs Pulse 73 01/06/25 09:41 BP 120/77 01/06/25 09:41 BMI result Body Mass Index 35.7 Const General: cooperative, no acute distress, well developed and well groomed Nutritional Appearance: well nourished and obese Orientation/consciousness: oriented to person, oriented to place and oriented to time Limitations: No language barrier HEENT Head: Yes normocephalic and Yes atraumatic Eyes General: appearance normal, both eyes and all related structures Pupils: Equal, round and reactive pupils present Neck Neck: Yes normal visual inspection and Yes no lymphadenopathy Thyroid: Thyroid normal Resp Effort & Inspection: normal respiratory effort and able to speak in complete sentences Auscultation: clear to auscultation bilaterally Cardio Rate: regular rate Rhythm: regular rhythm Heart sounds: Normal, physiologic split S2 sound present Peripheral pulses: radial pulses present and posterior tibial pulses present GI Inspection: No distended, Yes Abdominal panniculus present and Yes obesity Palpation (GI): Soft to palpation, nontender, no guarding, not rigid and No hepatosplenomegaly present Percussion: Yes normal to percussion Auscultation: normal bowel sounds Rectal Exam - Female: deferred Skin General skin exam: no rashes or lesions noted, turgor normal, skin not dry, no jaundice, No spider nevi and no striae Rashes: no rashes Nails: normal Neuro General: oriented to person, oriented to place and oriented to time Cranial nerves: Yes Equal, round and reactive pupils present Speech: No Abnormal speech present Extrem General: Yes normal to inspection, No clubbing, No cyanosis and No edema Psych Appearance: grossly normal and well kempt Mental Status: mental status grossly normal Speech and movement: Normal speech and movement present Affect: normal affect Attitude: cooperative Thought process: Normal thought process present and not confabulating Thought content: Normal thought content present Insight: Fair insight present (Psych) and Limited insight present (Psych) Judgement: Fair judgement present (Psych) and Limited judgement present (Psych) Results Reviewed Results Reviewed: US ABD 10/02/24 Findings: The visualized pancreas, aorta, and inferior vena cava are unremarkable. Liver normal size and echotexture. Right lobe 15.7 cm length. Echogenic lesions right lobe probable hemangioma measuring 10 x 6 x 10 mm and 8 x 6 x 8 mm. Similar lesion left lobe measuring 12 x 9 x 11 mm Common duct 3.0 mm diameter. Physiologic distention of the gallbladder. No gallstones or sludge. No gallbladder wall thickening. No pericholecystic fluid. No sonographic Lake sign. Main portal vein antegrade. Right kidney normal size, 11.3 cm in length. Normal cortical width and echotexture. No solid or cystic renal masses. No nephrolithiasis. No hydronephrosis. Left kidney normal, 10.9 cm in length. Normal cortical width and echotexture. No solid or cystic renal masses. No nephrolithiasis. No hydronephrosis. Spleen measures 10.3 cm. No splenic masses. No ascites. No lymphadenopathy. Impression: 1. A total of 3 probable hepatic hemangiomas multiphase contrast-enhanced MRI of the abdomen would be confirmatory. 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 Healed at all her current GI conditions are well controlled with this regimen - The patient is a 44-year-old female presenting with management of GERD, severe constipation necessitating the use of Reglan to promote bowel motility. - hemangiomas of the liver: Three identified on ultrasound, she is agreeable to undergoing MRI to be sure this is a correct assessment. She was educated about liver hemangiomas and about liver cysts. - Constipation: She recently started Zepbound for weight loss and given the severity of her constipation this well may be a complicating factor. I encouraged her to keep in touch with me if her constipation becomes worse as we escalate the dose. - Hearing loss: Significant impairment with 20% understanding reported, pending cochlear implant surgery. - Fear of surgery: Concerns expressed about cochlear implant placement, specifically regarding the position and impact of the procedure. - Recent fall: Resulted in pain, she asks about pain medication considerations due to upcoming procedure. I educate her be best to use Tylenol but it is also okay to use her tramadol. I also advised her to stop her fish oil supplement along with NSAIDs and aspirin to best promote appropriate clotting factors. I look forward to hearing how she does with her new cochlear implant. I think she will do better in groups of people and in noisy environments fairly quickly after the implant. Return office visit in 6 months Orders: Orders MR abdomen wo/w con Today D18.03 - Hemangioma of intra-abdominal structures Medications: Refilled docusate sodium (Colace) 100 mg PO BID 60 caps 2RF linaclotide (Linzess) 145 mcg PO QAM 30 caps 6RF K59.04 - Chronic idiopathic constipation, R14.0 - Abdominal distension (gaseous) [id number] 36,000-114,000- 180,000 unit (Creon) administer with meals and/or snacks 2 caps PO BID 120 caps 6RF metoclopramide HCl (Reglan) 10 mg PO QID 120 tabs 6RF K59.9 - Functional intestinal disorder, unspecified simethicone after meals 180 mg PO .TIDAC 90 caps 6RF 30 days K59.04 - Chronic idiopathic constipation, R14.0 - Abdominal distension (gaseous) pantoprazole 40 mg PO BID 60 tabs 6RF K21.9 - Gastro-esophageal reflux disease without esophagitis, K22.70 - Johnson's esophagus without dysplasia sennosides (senna) 25.8 mg (3 x 8.6 mg) PO BEDTIME 270 caps 6RF constipation 90 days K59.04 - Chronic idiopathic constipation Coding Level of Care Code Est Pt Level 3 (29462) Diagnoses Chronic idiopathic constipation K59.04 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
--- OUTSIDE RECORDS SUMMARY | 2025-01-06 11:21 | XMS_ITS | Encounter Summary ---
Author Organization [facility] [employer] Address [address] [place] [address] Care Team Providers Care Change Release Manager Name Role Phone Rebecca Karrie MEDICAL TECHNICAL WRITER Primary Care Provider [phone] Reason for Visit * Reason Comments Med Refill Encounter Details Date Type Department Care Team (Late Contact Info) Description 02/21/2023 Refill [facility] [address] [place] [address] Sixto Reno DDS [address] [place] [address] Erosion of teeth, 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 Social [...] Department Care Team (Late Contact Info) Description 10/19/2025 11:30 AM EDT Clinical Support [facility] MEDICINE [address] [place] [address] Griselda Roger, SUJATA documented as of this encounter Visit Diagnoses Diagnosis Erosion of teeth, 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 documented in this encounter Care Teams Change Release Manager Relationship Specialty Start Date End Date Karrie Fernandez FNP [address] [place] [address] PCP - General Family Medicine 01/12/21 documented as of this encounter
--- OUTSIDE RECORDS SUMMARY | 2025-01-06 11:21 | XMS_ITS | Encounter Summary ---
Author Organization [facility] Address [address] [place] [address] [address] [place] [address] Care Team Providers Care Sponsorship Coordinator Name Role Phone Rebecca Karrie [facility] Primary Care Provider [phone] Reason for Visit * Reason Comments Med Refill Encounter Details Date Type Department Care Team ([facility] Contact Info) Description 02/01/2023 Refill [facility] [address] [place], [place] [id number] Macie Hook DO [address] [place] [address] Social History Tobacco Use Types Packs/Day Years [...] Description 10/19/2025 11:30 AM EDT Clinical Support [facility] MEDICINE [address] [place] [address] Griselda Roger RN documented as of this encounter Visit Diagnoses Not on filedocumented in this encounter Care Teams Sponsorship Coordinator Relationship Specialty Start Date End Date Karrie Fernandez FNP [address] [place] [address] PCP - General Family Medicine 01/12/21 documented as of this encounter
--- OUTSIDE RECORDS SUMMARY | 2025-01-06 11:22 | XMS_ITS | Clinical Summary ---
Author Organization [facility] Address [address] [place] [address] Phone Care Team Providers Care Sales And Marketing Administrator Name Role Phone Ed Mario MD Primary Care Provi percy Allergies Active Allergy Reactions Criticality Noted Date Comments Divalproex Other 06/05/2017 Depakote Pravastatin Weakness,Other 12/06/2020 pravastatin Medications cholecalcifero l (VITAMIN D-3) 50 mcg [...] by mouth 1 (one) time each day. 05/01/202 4 Active nortriptyline (PAMELOR) 25 mg capsule [...] (one) time each day. with food Active fluconazole (DIFLUCAN) 150 mg tablet Take 1 tab by mouth now. May repeat in 72 hours if still symptomatic. 2 tablet 5 Active Additional Information Patient not taking.Reported on 12/16/2024 topiramate (TOPAMAX) 50 mg tablet Take 1 tablet (50 mg total) by mouth. 5 10/11/19 26 Active phentermine 37.5 mg capsule 5 Active naloxone (NARCAN) 4 mg/0.1 mL nasal spray 5 Active cyclobenzaprin e (FLEXERIL) 10 mg tablet 5 Active docusate sodium (COLACE) 100 mg capsule Take 1 capsule (100 mg total) by mouth 2 (two) times a day. 5 Active metoclopramide (REGLAN) 10 mg tablet Take 1 tablet (10 mg total) by mouth. 5 Active ibuprofen (ADVIL,MOTRIN) 600 mg tablet take 1 tablet by mouth every 6-8 hours as needed for pain 5 Active hydrocortisone (ANUSOL-HC) 2.5 % rectal cream APPLY TWICE DAILY RECTALLY NEEDED FOR HEMORROIDS. INCLE RECTAL APPLICATOR 5 Active furosemide (LASIX) 20 mg tablet Take 1 tablet (20 mg total) by mouth 1 (one) time each day. 5 Active fluoride, sodium, 1.1 % paste APPLY A SMEAR ON BRUSH AND BRUSH TEETH THOROUGHLY TWICE DAILY 5 Active bisacodyL (DULCOLAX) 5 mg EC tablet take 1 tablet orally at bedtime for 30 days 5 Active metroNIDAZOLE (FLAGYL) 500 mg tablet Take 1 tablet (500 mg total) by mouth 2 (two) times a day for 7 days. Do not use mouth wash or consume alcohol until 48 hours after last dose 14 tablet 5 12/25/19 25 Active Problems Problem Noted Date Diagnosed Date [...] Biopsy 08/2019 unremarkable Chiari malformation type I (CMS/HCC V24, CMS/HCC V28) 03/17/2021 Overview (06/12/2024): Differing MRI reports Seen [...] with trace mitral/tricuspid/aortic regurgitation. [facility] [place] [facility] [place] 02/2020. Obesity 09/12/2011 Encounters Date Type Department Care Team Description 12/16/2024 1:00 PM EDT Office Visit [facility] [address] [place] [address] Mckenna Espinoza CNM Acute vaginitis (Primary Dx) 11/10/2024 Telephone Obstetrics and Gynecology - [address] [address] Nereida Chisholm CNM 11/03/2024 Telephone Obstetrics and Gynecology - [address] [address] Marta Bear CNM from Last 3 Months Immunizations Name Administration [...] HISTORICAL TUMMY TUCK OTHER SURGICAL HISTORY PROCEDURE: ME PREPARATION MOULAGE CUSTOM BREAST IMPLANT BREAST SURGERY Bilateral PROCEDURE: ME UNLISTED PROCEDURE BREAST; COMMENT: 2017 OTHER SURGICAL [...] Not Answered Alcohol Use Standard Drinks/Week Comments No 0 [...] on file Not on file Obstetrics History * This document contains information received from the source organization and may not represent a complete record from that organization. Para Term AB IAB SAB Ectopic Multiple Livin g Live Births 4 3 3 0 0 0 3 3 Date Outcome GA Total Labor Labor/2nd/3rd Weight Sex Type Anes PTL Nicole A1 A5 Name Clin 1995 Term F Vag-S pont Living 1997 Term M Vag-S pont Living 2011 Term F Vag-S pont Living Last Filed Vital Signs Vital Sign Reading Time Taken Comments Blood Pressure 112/83 12/16/2024 1:06 PM EDT Pulse 89 12/16/2024 1:06 PM EDT Temperature - - Respiratory Rate - - Oxygen Saturation - - Inhaled Oxygen Concentration - - Weight 93 kg (205 lb) 12/16/2024 1:06 PM EDT Height 160 cm (5' 3 ) 06/16/2024 9:32 AM EST Body Mass Index 36.31 06/16/2024 9:32 AM EST Plan of Treatment Health Maintenance Due Date Last Done Comments Hepatitis B Vaccines (1 of 3 - 19+ 3-dose series) 1997 12/30/2007, 09/23/2007, 08/23/2007 Colorectal Cancer Screening: Colonoscopy 03/15/2022 Social Influencers of Health Screening 03/15/2022 Depression Screening 04/16/2024 COVID-19 Vaccine ( season) 2024 04/25/2021, 08/27/2020, 07/30/2020 Influenza Vaccine (#1) 2024 , 02/28/2022, 03/16/2021, Additional history exists Breast Cancer Screening 03/20/2025 03/20/20 23, 03/14/2022, 03/01/2021 DTaP,Tdap,and Td Vaccines (7 - Td or Tdap) 01/22/2027 01/22/2017, 08/06/2006, 06/15/1983, Additional history exists Cholesterol Screening (Lipid Panel) 09/23/2028 09/24/2023 Cervical Cancer Screening: HPV 06/16/2029 06/16/2024, 05/19/2019 RSV Immunization Adult Patients (1 - 1-dose 75+ series) 2053 IPV Vaccines Completed 06/15/1983, 0604/1980, 1978, Additional history exists MMR Vaccines Completed [...] 5 Years) and At-Risk Patients (6 to 49 Years) Aged Out 09/21/2023 No longer eligible based on patient's age to complete this topic HIV Screening Completed 06/16/2024, 08/28/2022 Hepatitis C Screening Completed 06/16/2024, 023 HIB Vaccines Aged Out No longer eligi ble based on patient's age to complete this topic HPV Vaccines Aged Out No longer eligi ble based on patient's age to complete this topic Meningococcal B Vaccine Aged Out No l onger eligible based on patient's age to complete this topic RSV Immunization Patients Under 20 months Aged Out No longer eligible based on patient's age to complete this topic Procedures Procedure Name Priority Date/Time Associated Diagnosis Comments TRICHOMONAS VAGINALIS ANTIGEN Routine 12/16/2024 1:25 PM EDT Acute vaginitis WET PREP, GENITAL Routine 12/16/2024 1:2 5 PM EDT Acute vaginitis HEPATITIS C ANTIBODY Routine 06/16/2024 10:15 AM EST Encounter for well woman exam with routine gynecological exam Screen for STD (sexually transmitted disease) HIV 1, 2 ANTIBODY, P24 ANTIGEN WITH REFLEX TO DIFFERENTIATION Routine 06/16/2024 10:15 AM EST Encounter for well woman exam with routine gynecological exam Screen for STD (sexually transmitted disease) HPV WITH REFLEX GENOTYPE Routine 06/16/2024 9:51 AM EST Encounter for well woman exam with routine gynecological exam Screening for cervical cancer SCREENING MAMMOGRAPHY BI 2-VIEW BREAST INC CAD Routine 03/20/2023 10:35 AM EST Encounter for gynecological examination (general) (routine) without abnormal findings Encounter for screening mammogram for malignant neoplasm of breast from Last 3 Months or Most Recently Relevant to Health Maintenance Results * Trichomonas vaginalis antigen (12/16/2024 1:25 PM EDT) Trichomonas vaginalis Negative Negative 12/16/2024 8:45 PM EDT [facility] Swab Vaginal structure / Unknown Non-blood Collection / Unknown 12/16/2024 1:25 PM EDT 12/16/2024 1:25 PM EDT Mckenna [facility] MICROBIOLOGY - GENERAL OR DERABLES Final Result [facility] [address] [place] [address], * (ABNORMAL) Wet prep, genital (12/16/2024 1:25 PM EDT) Clue Cells, Wet Prep Positive(A) Negative 12/16/2024 8:41 PM EDT [facility] Yeast, Wet Prep Negative Negative 12/16/2024 8:41 PM EDT [facility] Trichomonas, Wet Prep Indeterminate Negative 12/16/2024 8:41 PM EDT [facility] Comment:Refer to Trichomonas antigen. Swab Vaginal structure / Unknown Non-blood Collection / Unknown 12/16/2024 1:25 PM EDT 12/16/2024 1:25 PM EDT Mckenna Espinoza [facility] MICROBIOLOGY - GENERAL OR DERABLES Final Result Performing Organization Address [facility] Co de Phone Number [facility] [address] [place] [address], [place] [phone] * Hepatitis C antibody (06/16/2024 10:15 AM EST) [facility] Hepatitis C Antibody Negative Negative LAB CHEMISTRY METHOD 06/16/2024 12:42 PM EST [facility] Blood Venous blood specimen / Unknown Venipuncture / Unknown 06/16/2024 10:15 AM EST 06/16/2024 11:15 AM EST Mckenna Espinoza [facility] BLOOD ORDERABLES Final Re sult Performing Organization Address [facility] Phone Number [facility] [address] [place] [address], [place] [phone] * HIV 1,2 antibody, p24 antigen with reflex to differentiation (06/16/2024 10:15 AM EST) [facility] HIV Combo AB/AG Negative Negative LAB CHEMISTRY METHOD 06/16/2024 12:43 PM EST [facility] Blood Venous blood specimen / Unknown Venipuncture / Unknown 06/16/2024 10:15 AM EST 06/16/2024 11:15 AM EST Narrative [facility] - 06/16/2024 12:43 PM EST This assay is a 4th generation assay allowing for earlier detection of HIV infection by detecting the presence of the HIV-1 p24 antigen as well as the traditional antibodies to HIV type 1 (including group O) and type 2. Use of a 4th generation assay is the current CDC recommendation for HIV screening. Mckenna Espinoza [facility] BLOOD ORDERABLES Final Re sult Performing Organization Address [facility]/ZIP Co de Phone Number [facility] [address] [place] [address], [place] [phone] * HPV with reflex genotype (06/16/2024 9:51 AM EST) HPV Negative Negative LAB MICROBIOLOGY METHOD 06/18/2024 3:03 PM EST [facility] Brushing/Spatula Cervix uteri structure / Unknown 06/16/2024 9:51 AM EST 06/17/2024 6:06 AM EST Mckenna Espinoza [facility] MOLECULAR DIAGNOSTICS ORD ERABLES Final Result [facility] [address] [place] [address], [place] [phone] * SCREENING MAMMOGRAPHY BI 2-VIEW BREAST INC [...] Routine screening. No current breast complaints. Family history of breast cancer in grandmother Comparison: [...] distortion identified. Stable typically benign parenchymal asymmetries. Intact implant LEFT: No suspicious masses, groups of microcalcifications or areas of architectural distortion identified. Stable typically benign parenchymal asymmetries. Intact implant IMPRESSION: : 1. No mammographic [...] Routine annual screening mammography is recommended Isatu [facility] IM[facility] XR PROCEDURES Final Result from Last 3 Months or Most Recently Relevant to Health Maintenance Insurance [facility] [employer] Care Teams Sales And Marketing Administrator Relationship Specialty Start Date End Date Ed Mario MD [address] [place] [address] PCP - General Internal Medicine 04/05/21
--- OUTSIDE RECORDS SUMMARY | 2025-01-06 11:22 | XMS_ITS | Encounter Summary ---
Author Organization [employer] Address [address] [facility] 7 [place] [address] Care Team Providers Care Electrical Tests Supervisor Name Role Phone [facility] Primary Care Provider [phone] Reason for Visit * Reason Onset Date Comments Med Refill 08/26/2024 Encounter Details Date Type Department Care Team ([facility] st Contact Info) Description 08/26/2024 Telephone [facility] [address] [place], [place] [phone] [facility] [address] [place] [address] Med Refill Social History Tobacco Use Types Packs/Day Years [...] encounter Miscellaneous Notes * Telephone Encounter - Macie Bah LPN - 08/26/2024 1:21 PM EDT Medication pended to provider. * Telephone Encounter - Kira Anand - 08/26/2024 1:13 PM EDT TC from pt requesting medication refill. Medications needing refill : venlafaxine XR (Effexor XR) 75 MG 24 hr capsule Symbicort 80-4.5 MCG/ACT inhaler [id number] [place] [address] [address] [facility] [address] documented in this encounter Plan of Treatment Upcoming Encounters Date Type Department Care Team (Late st Contact Info) Description 10/19/2025 11:30 AM EDT Clinical Support [facility] [address] [place] [address] Griselda Roger RN documented as of this encounter Visit Diagnoses Not on filedocumented in this encounter Additional Health Concerns Assessment Noted Time PHQ-9 Depression Total Score: 0 09/21/19 24 9:42 AM EDT documented as of this encounter Care Teams Electrical Tests Supervisor Relationship Specialty Start Date End Date Karrie Fernandez FNP [address] [place] [address] PCP - General Family Medicine 01/12/21 documented as of this encounter
--- OUTSIDE RECORDS SUMMARY | 2025-01-06 11:22 | XMS_ITS | Encounter Summary ---
Author Organization [employer] Address [address] [facility] [address] [place] [address] Care Team Providers Care Technical Asst Name Role Phone [facility] Primary Care Provider Reason for Visit * Reason Onset Date Comments Med Refill 08/22/2024 Encounter Details Date Type Department Care Team ([facility] st Contact Info) Description 08/22/2024 Telephone [facility] [address] [place], [place] [phone] [facility] [address] [place] [address] Med Refill Social History Tobacco Use Types [...] Telephone Encounter - Macie Bah LPN - 08/22/2024 9:30 AM EDT Medication pended to provider for approval. * Telephone Encounter - Kira Anand - 08/22/2024 9:17 AM EDT TC from Alireza with [employer] requesting medication refill. Medications needing refill : cyclobenzaprine (Flexeril) 10 MG tablet To be sent to: [facility] #[id number] [place] [address] [address] [facility] [address] documented in this encounter Plan of Treatment Upcoming Encounters Date Type Department Care Team (Late st Contact Info) Description 10/19/2025 11:30 AM EDT Clinical Support [facility] [address] [place] [address] Griselda Roger RN documented as of this encounter Visit Diagnoses Not on filedocumented in this encounter Additional Health Concerns Assessment Noted Time PHQ-9 Depression Total Score: 0 09/21/19 24 9:42 AM EDT documented as of this encounter Care Teams Technical Asst Relationship Specialty Start Date End Date Karrie Fernandez FNP [address] [place] [address] PCP - General Family Medicine 01/12/21 documented as of this encounter
--- OUTSIDE RECORDS SUMMARY | 2025-01-06 11:22 | XMS_ITS | Encounter Summary ---
Author Organization [facility] [facility] Address [address] [place] [address] [address] [place] [address] Care Team Providers Care Grants Director Name Role Phone Karrie Fernandez [facility] Primary Care Provider [phone] Encounter Details Date Type Department Care Team (Latest Contact Info) Description 03/07/2019 Abstract [facility] CONVERSION[facility] Dental, Provider, DDS Social History Tobacco [...] Description 10/19/2025 11:30 AM EDT Clinical Support [facility] [address] [place] [address] Griselda Roger RN documented as of this encounter Visit Diagnoses Not on filedocumented in this encounter Care Teams Grants Director Relationship Specialty Start Date End Date RebeccaKarrie FNP [address] [place] [address] PCP - General Family Medicine 01/12/21 documented as of this encounter
--- OUTSIDE RECORDS SUMMARY | 2025-01-06 11:22 | XMS_ITS | Clinical Summary ---
Author Organization [employer] Address [address] [facility] 7t [place] [address] Care Team Providers Care [employer] Department Head Name Role Phone Karrie Fernandez [facility] Primary Care Provider [phone] Allergies Active Allergy Reactions Criticality Noted Date Comments Pravastatin 08/06/2014 Muscle aches Other reaction(s): Body Aches Valproic Acid 10/10/2011 Face swollen Other reaction(s): swelling of face Medications * This document contains information received from the source organization and may not represent a complete record from that organization. meclizine (Antivert) 25 MG tablet Take 25 mg by mouth at bedtime. Active Simethicone Ultra Strength 180 MG capsule TAKE 1 CAPSULE BY MOUTH THREE TIMES DAILY AFTER MEALS Active senna (Senokot) 8.6 MG tablet TAKE 2 TABLETS BY MOUTH DAILY AT BEDTIME NEEDED FOR CONSTIPATION Active Linzess 145 MCG capsule Take 145 mcg by mouth in the morning. 022 Active Polypodium Leucotomos (Heliocare) 240 MG capsuleIndicati ons:Rosacea Take 240 mg by mouth in the morning. 30 capsule 11 023 Active fluticasone (Flonase) 50 MCG/ACT nasal sprayIndication s:Seasonal allergies SHAKE LIQUID AND USE 1 SPRAY IN EACH NOSTRIL TWICE DAILY 48 g 023 Active cetirizine (ZyrTEC) 10 MG tabletIndicatio ns:Dyspepsia TAKE 1 TABLET BY MOUTH EVERY DAY NEEDED FOR ALLERGIES 90 tablet 023 Active furosemide (Lasix) 20 MG tabletIndicatio ns:Edema, unspecified type TAKE 1 TABLET BY MOUTH 1 TO 2 TIMES DAILY NEEDED FOR SWELLING 180 tablet 023 Active pantoprazole (ProtoNix) 40 MG EC tablet Take 40 mg by mouth 2 times daily. Active cholecalciferol (D3) 25 MCG (1000 UT) capsuleIndicati ons:Vitamin D deficiency Take 1 capsule (25 mcg) by mouth Once per day. 90 capsule 3 Active Acetaminophen Extra Strength 500 MG tablet TAKE 2 TABLETS BY MOUTH EVERY 6 HOURS NEEDED FOR PAIN ON A SCALE OF 7 TO 10 Active BinaxNOW COVID-19 Ag Home Test kit TEST DIRECTED TODAY Active docusate sodium (Colace) 100 MG capsule Take 100 mg by mouth 2 times daily. Active ibuprofen 600 MG tablet Take 1 tablet by mouth every 6 (six) hours if needed. 024 Active Levonorgestrel (Mirena, 52 MG,) 20 MCG/DAY intrauterine device Active polyethylene glycol-electrol ytes (Nulytely) 420 g solution Active metoclopramide (Reglan) 10 MG tablet Take 10 mg by mouth 3 times daily. Active Sodium Fluoride (Sodium Fluoride 5000 PPM) 1.1 % pasteIndication s:Erosion of teeth, 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 APPLY A SMEAR ON BRUSH AND BRUSH TEETH THOROUGHLY TWICE DAILY 100 mL 025 Active cyclobenzaprine (Flexeril) 10 MG tabletIndicatio ns:Pain TAKE 1 TABLET BY MOUTH NEEDED IN THE MORNING, AT NOON, AND AT BEDTIME FOR MUSCLE SPASMS 30 tablet 1 Active Symbicort 80-4.5 MCG/ACT inhalerIndicati ons:Shortness of breath INHALE 2 PUFFS BY MOUTH TWICE DAILY IN THE MORNING AND IN THE EVENING 10.2 g 025 Active Creon 80555-866995 units capsule delayed-release particles capsule TAKE 2 CAPSULES BY MOUTH TWICE DAILY WITH MEALS OR SNACKS 024 Active phentermine 37.5 MG capsuleIndicati ons:Class 2 severe obesity due to excess calories with serious comorbidity and body mass index (BMI) of 36.0 to 36.9 in adult (CMS/HCC) Take 1 capsule (37.5 mg) by mouth before breakfast. 30 capsule 2 Active topiramate 50 MG tabletIndicatio ns:Class 2 severe obesity due to excess calories with serious comorbidity and body mass index (BMI) of 36.0 to 36.9 in adult ([facility]) Take 1 tablet (50 mg) by mouth before evening meal. 30 tablet 2 025 2025 Active naloxone (Narcan) 4 mg/0.1 mL nasal sprayIndication s:Chronic pain disorder Administer 1 spray (4 mg) into affected nostril(s) if needed for opioid reversal. May repeat every 2-3 minutes if needed, alternating nostrils, until medical assistance becomes available. 2 each 3 025 2025 Active venlafaxine XR (Effexor XR) 150 MG 24 hr capsuleIndicati ons:Depression, unspecified depression type Take 1 capsule (150 mg) by mouth Once per day. Do not crush or chew. 30 capsule 11 025 2025 Active Tirzepatide-Vince ght Management (Zepbound) 2.5 MG/0.5ML solution auto-injectorIn dications:Class 2 severe obesity due to excess calories with serious comorbidity and body mass index (BMI) of 36.0 to 36.9 in adult ([facility]) Inject 0.5 mL (2.5 mg) under the skin 1 (one) time per week. 2 mL 2 Active venlafaxine XR (Effexor XR) 75 MG 24 hr capsule TAKE 1 CAPSULE BY MOUTH EVERY DAY WITH FOOD 60 capsule 025 2024 Discontinued traMADol (Ultram) 50 MG tabletIndicatio ns:Long-term current use of opiate analgesic TAKE 1 TABLET(50 MG) BY MOUTH EVERY 6 HOURS FOR UP TO 4 DAYS NEEDED FOR SEVERE PAIN 15 tablet 025 2024 Discontinued(R eorder (will not trigger notification to Pharmacy)) traMADol (Ultram) 50 MG tabletIndicatio ns:Long-term current use of opiate analgesic Take 1 tablet (50 mg) by mouth every 6 (six) hours if needed for severe pain for up to 7 days. 28 tablet 025 2024 Active Problems Problem Noted Date Diagnosed Date Adjustment disorder with anxious mood 01/01/2025 Long-term current use of opiate analgesic 2024 Disc disease, degenerative, cervical 10/23/2023 Assessment & [...] with trace mitral/tricuspid/aortic regurgitation. Last seen by [facility] cardiology 02/2020. Obesity 09/12/2011 02/01/2023 Resolved Problems Problem Noted Date Diagnosed Date Resolved Date Neck pain 03/17/2021 02/01/2023 09/23/2023 Encounters * This document contains information received from the source organization and may not represent a complete record from that organization. Date Type Department Care Team Description 12/25/2024 Refill [facility] [place] [address] Karrie Fernandez FNP Long-term current use of opiate analgesic 12/23/2024 Telephone [facility] [place] [place] [address] Karrie Fernandez FNP Prior Authorization ([facility]: Ayush) 12/19/2024 9:00 AM EDT Office Visit [facility] [place] [place] [address] Karrie Fernandez FNP Class 2 severe obesity due to excess calories with serious comorbidity and body mass index (BMI) of 36.0 to 36.9 in adult ([facility]) (Primary Dx); Depression, unspecified depression type; Acute bilateral thoracic back pain; Dietary counseling; Exercise counseling 12/19/2024 Travel 12/18/2024 Telephone [facility] [place] [address] Karrie Fernandez FNP chart prep 12/18/2024 Refill [facility] [place] [address] Karrie Fernandez FNP 12/11/2024 Patient Outreach [facility] [address] [place] [address] Karrie Fernandez FNP Pre-visit Planning (SDOH was already completed) 12/10/2024 Patient Outreach [facility] [place] [address] Karrie Fernandez FNP Pre-visit Planning (SDOH screening completed on 09/03/2024) 11/11/2024 Refill [facility] [place] [address] Karrie Fernandez FNP Long-term current use of opiate analgesic 10/29/2024 Telephone [facility] [place] [address] Karrie Fernandez FNP vaccine 10/24/2024 Refill [facility] [address] [place] [address] Macie Hook DO 10/20/2024 11:30 AM EDT Clinical Support [facility] [place] [address] Griselda Roger, RN Long-term current use of opiate analgesic (Primary Dx) 10/20/2024 Travel 10/20/2024 Refill [facility] [address] [place] [address] Griselda Roger, RN Long-term current use of opiate analgesic (Primary Dx); Chronic pain disorder 10/20/2024 Telephone [facility] [address] [place], [place] [phone] Griselda Roger, RN STATISTICS TEACHER Tier 3 10/09/2024 Refill [facility] [address] [place], [place] [phone] Rebecca, Karrie, BUSINESS ANALYST PROJECT MANAGER Class 2 severe obesity due to excess calories with serious comorbidity and body mass index (BMI) of 36.0 to 36.9 in adult ([facility]) from Last 3 Months Immunizations Immunization Administration Dates Next Due DTaP 06/15/1983, 1,1978,08/14 [...] Answer Date Recorded Patient Health Questionnaire-9 Score 12 01/01/2025 Patient Health Questionnaire-9 Score 12 01/01/2025 Last PHQ-9: Questionnaire Data Not on file 0 01/01/2025 Housing Stability Answer Date Recorded What is [...] Answer Date Recorded Patient Health Questionnaire-2 Score 3 01/01/2025 Internet Access Answer Date Recorded Internet Access Q1 Yes 09/03/2024 Internet Access Q2 Not on file 09/03/2024 Comments Unknown Sex and Gender Information Value Date Recorded Sex Assigned at Female 02/13/2022 10:14 AM EDT Legal Sex Female 10:14 AM EDT Gender Identity Female 02/13/2022 10:14 AM EDT Sexual Orientation Straight 02/13/2022 10 :14 AM EDT Last Filed Vital Signs Vital Sign Reading Time Taken Comments Blood Pressure 122/86 12/19/2024 9:26 AM EDT Pulse 80 12/19/2024 9:26 AM EDT Temperature 36.1 C (97 F) 12/19/2024 9:26 AM EDT Respiratory Rate 18 12/19/2024 9:26 AM EDT Oxygen Saturation 98% 09/28/2023 11:05 AM EDT Inhaled Oxygen Concentration - - Weight 93.9 kg (207 lb) 12/19/2024 9:26 AM EDT Height 160 cm (5' 3 ) 12/19/2024 9:26 AM EDT Body Mass Index 36.67 12/19/2024 9:26 AM EDT Plan of Treatment Upcoming Encounters Date Type Department Care Team (Late st Contact Info) Description 10/19/2025 11:30 AM EDT Clinical Support [facility] [address] [place] [address] Griselda Roger, RN Health Maintenance Due Date Last Done Comments CT Colonography 1978 Dental Oral Exam 1978 Dental X-Ray: Bitewings 1978 Dental X-Ray: Full Mouth 1978 FIT DNA/Cologuard 1978 FIT 1978 FOBT 1978 HIV Screening 1978 Sigmoidoscopy 1978 Family Planning (PISQ) 1993 Hepatitis C Screening 1996 Hepatitis B Vaccines (1 of 3 - 19+ 3-dose series) 1997 12/30/2007, 09/23/2007, 08/23/2007 Dental Prophylaxis 09/29/2022 03/30/2022 COVID-19 Vaccine ( season) 2024 04/25/2021, 08/27/2020, 07/30/2020 Influenza Vaccine (#1) 2024 , 02/28/2022, 03/16/2021, Additional history exists Disability Screening 06/13/2025 06/13/2024 Depression Monitoring 07/01/2025 01/01/2025, 025 SDOH Screening 09/03/2025 09/03/2024 Mammogram 10/04/2025 10/05/2023, 01/07/2018 Alcohol/Substance Use Screening 12/19/2025 12/19/2024 Tobacco Screening 12/19/2025 12/19/2024 DTaP/Tdap/Td Vaccines (6 - Td or Tdap) 01/22/2027 01/22/2017, 08/06/2006, 06/15/1983, Additional history exists Zoster Vaccines (1 of 2) 2028 Colonoscopy 08/01/2028 08/02/2023 Colorectal Cancer Screening 08/01/2028 Lipid Panel 09/23/2028 09/24/2023, 05/, 03/24/2021, Additional history exists Cervical Cancer Screening 06/18/2029 HPV/Cotest 06/18/2029 06/18/2024, 05/19/2019 Pap Smear 06/18/2029 06/18/2024, 05/19/2019 RSV Patients and Patients Aged 60 years or older (1 - 1-dose 75+ series) 2053 IPV Vaccines Completed 06/15/1983, 060 04/1980, 1978, Additional history exists Meningococcal Vaccine Aged Out 08/01/2018 No tim adrien eligible based on patient's age to complete this topic Hepatitis A Vaccines Completed 03/16/2021, 01/29/20 19 Pneumococcal Vaccine: Pediatrics (0 to 5 Years) and At-Risk Patients (6 to 49) Years Aged Out 09/21/2023 No longer eligible based [...] Procedure Name Priority Date/Time Associated Diagnosis Comments POCT CAMERON-14 URINE DRUG SCREEN Routine 10/20/2024 11:59 AM EDT Long-term current use of opiate analgesic HM PAP/HPV Routine 06/18/2024 BI US BREAST LIMITED BILATERAL Routine 10/05/2023 10:52 AM EDT LIPID PANEL, STANDARD Routine 09/24/2023 11:59 AM EDT Healthcare maintenance HM COLONOSCOPY Routine 08/02/2023 PROPHYLAXIS - ADULT Routine 03/30/2022 9 :30 AM EST Encounter for dental examination from Last 3 Months or Most Recently Relevant to Health Maintenance Results * POCT CAMERON-14 Urine Drug Screen (10/20/2024 11:59 AM EDT) THC Negative Negative Cocaine Screen, Urine Negative Negative Opiate Screen, Urine Negative Negative Methamphetamine Screen Urine Negative Negative Amphetamine Screen, Urine Positive Negative Benzodiazepines Screen, Urine Negative Negative Barbiturate Screen, Urine Negative Negative Methadone Screen, Urine Negative Negative Buprenophine Screen, Urine Negative Negative TCA, Urine Positive Negative MDMA Urine Negative Negative ng/mL Oxycodone Screen, Urine Positive Negative Phencyclidine (PCP), Urine Negative Negative Propoxyphene, Urine Negative Negative Fentanyl, Urine Negative Negative Urine Urine specimen obtained by clean catch procedure / Unknown 10/20/2024 11:59 AM EDT Narrative Griselda Roger RN - 10/20/2024 11:59 AM EDT UTOX cup Lot#[id number] Exp. 01/20/26 Internal Pass Control [facility] BUSINESS ANALYST PROJECT MANAGER POINT OF CARE TEST ENTER/EDIT ORDERABLES Final Result * HM PAP/HPV (06/18/2024) Pap Smear 1. NILM 1. NILM HPV Not Detected Undetected, Indeterminat e, Quantitative , Not Detected [facility] Provider HEALTH MAINTENANCE Final Result * BI US Breast Limited Bilateral (10/05/2023 10:52 AM EDT) Anatomical Region Laterality Modality Breast Bilateral Ultrasound 10/05/2023 10:5 2 AM EDT Narrative 10/05/2023 11:07 AM EDT [facility] [address] [place] [address] Ultrasound Report Signed Patient: Dulce Lacy MR#: [id number] : 1980 Acct:[id number] Age/Sex: 43 / F ADM Date: 10/05/23 Loc: HO.MAMMO Attending Dr: Vanessa Mendoza MD Ordering Physician: Vanessa Glez MD Date of Service: 10/05/23 Procedure(s): US breast BI limited mamm only Accession Number(s): [id number] cc: Vanessa Glez MD EXAMINATION: MM DIAGNOSTIC [...] grandmother, unknown age. COMPARISON: (Prior mammography at [facility]) Mammography: 03/20/2023, 03/14/2022, 03/01/2021, 01/07/2018, and dating back to 2016 (baseline at [facility]). TECHNIQUE: Digital mammography is performed in craniocaudal [...] in OV> 10/05/23 1104 DD/ 1052 TD/TT: Station Worker: Procedure Note Donotuseinterpreter, Image - 10/05/2023 [facility] [address] [place], [place] [address] Ultrasound Report Signed Patient: Dulce Lacy EMR#: [id number] : 1980Acct:[id number] Age/Sex: 43 / FADM Date: 10/05/23 Loc: HO.MAMMO Attending Dr: Vanessa Mendoza MD Ordering Physician: Vanessa Glez MD Date of Service: 10/05/23 Procedure(s): US breast BI limited mamm only Accession Number(s): [id number] cc: Vanessa Glez MD EXAMINATION: MM DIAGNOSTIC [...] grandmother, unknown age. COMPARISON: (Prior mammography at [facility]) Mammography: 03/20/2023, 03/14/2022, 03/01/2021, 01/07/2018, and dating back to 2016 (baseline at [facility]). TECHNIQUE: Digital mammography is performed in craniocaudal [...] in OV> 10/05/23 1104 DD/ 1052 TD/TT: Station Worker: us Vanessa Mendoza MD IMG US PROCEDURES Final Result * (ABNORMAL) Lipid Panel, Standard (09/24/2023 11:59 AM EDT) Triglycerides 60 <150 mg/dL [facility] Comment:Desirable Triglyceri de: less than 150 mg/dLBorderline High Triglyceride 150-199 mg/dLHigh Triglyceride: 200-499 mg/dLVery High Triglyceride: greater than or equal to 5OO mg/dL Cholesterol 220(H) <200 mg/dL [facility] Comment:Desirable Cholestero l: less than 200 mg/dLBorderline High Cholesterol: 200-239 mg/dLHigh Cholesterol: greater than 239 mg/dL LDL Cholesterol Calculated 152(H) <100 mg/dL [facility] Comment:Desirable LDL: less than 100 mg/dLNear Optimal/Above Optimal LDL: 110- 129 mg/dLBorderline High LDL: 130-159 mg/dLHigh LDL: 160-189 mg/dLVery High LDL: greater than or equal to 190 mg/dL HDL Cholesterol 56 >40 mg/dL [facility] Comment:Desirable HDL: great er than 40 mg/dL Note: This HDL assay may give artificially low results in patients with liver disease. Blood Venous blood specimen / Unknown 09/24/2023 11:59 AM EDT 09/24/2023 11:59 AM EDT [facility] BUSINESS ANALYST PROJECT MANAGER LAB BLOOD ORDERABLES Final Re sult [facility] [address] [place] [address] [phone] * (ABNORMAL) Colonoscopy (08/02/2023) Colonoscopy Abnormal( A) Normal Comment:Repeat Colonoscopy i n 5 years due to Fh of colon polyps or earlier if clinically indicated Historical Provider HEALTH MAINTENANCE Edited Result - Final from Last 3 Months or Most Recently Relevant to Health Maintenance Insurance [facility] MEDICAID STAND ADULT Care Teams [employer] Department Head Relationship Specialty Start Date End Date Karrie Fernandez FNP [address] [place] [id number] PCP - General Family Medicine 01/12/21
--- OUTSIDE RECORDS SUMMARY | 2025-01-06 11:22 | XMS_ITS | Encounter Summary ---
Author Organization [employer] [facility] Address [address] [place] [address] 7 [place] [address] Care Team Providers Care Tube Mounter Name Role Phone Karrie Fernandez [facility] Primary Care Provider [phone] Encounter Details Date Type Department Care Team (Latest Contact Info) Description 04/23/2020 Abstract [facility] CONVERSIONS Dental, Provider, DDS Social History Tobacco [...] Upcoming Encounters Date Type Department Care Team ( st Contact Info) Description 10/19/2025 11:30 AM EDT Clinical Support [facility] [address] [place] [address] Griselda Roger RN documented as of this encounter Visit Diagnoses Not on filedocumented in this encounter Care Teams Tube Mounter Relationship Specialty Start Date End Date Karrie FernandezAPRYL [address] [place] [address] PCP - General Family Medicine 01/12/21 documented as of this encounter
--- OUTSIDE RECORDS SUMMARY | 2025-01-06 11:22 | XMS_ITS | Encounter Summary ---
Author Organization [employer] [facility] Address [address] [place] [address] [address] [place] [address] Care Team Providers Care Window Shade Ring Coverer Name Role Phone [facility] Primary Care Provider [phone] Reason for Visit * Reason Onset Date Comments Letter for School/Work 10/30/2022 Encounter Details Date Type Department Care Team ([facility] Contact Info) Description 10/30/2022 Telephone [facility] [address] [place], [place] [phone] [facility] [address] [place] [address] Letter for School/Work Social History Tobacco Use [...] states that she requested letter to provider [place]. Please contact pt at [phone] [place]er Pseaker Pt states letter is to be able to go back to work . documented in this encounter Plan of Treatment Upcoming Encounters Date Type Department Care Team (Late st Contact Info) Description 10/19/2025 11:30 AM EDT Clinical Support [facility] [address] [place] [address] Griselda Roger, SUJATA documented as of this encounter Visit Diagnoses Not on filedocumented in this encounter Care Teams Window Shade Ring Coverer Relationship Specialty Start Date End Date Karrie Fernandez FNP [address] [place] [id number] PCP - General Family Medicine 01/12/21 documented as of this encounter
--- OUTSIDE RECORDS SUMMARY | 2025-01-06 11:22 | XMS_ITS | Encounter Summary ---
Author Organization [employer] Address [address] [facility] [address] [place] [address] Care Team Providers Care Director Hr Communications Name Role Phone Rebecca Karrie FIELD TRAINING AGENT Primary Care Provider [phone] Reason for Visit * Reason Comments Med Refill Encounter Details Date Type Department Care Team ([facility] st Contact Info) Description 06/09/2024 Refill [facility] [address] [place] [address] Sixto Reno DDS [address] [place] [address] Erosion of teeth, 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 Social [...] encounter Miscellaneous Notes * Telephone Encounter - Faheme Oliver DMD - 06/13/2024 10:21 AM EST Approving, but needs appt for additional refills. documented in this encounter Plan of Treatment Upcoming Encounters Date Type Department Care Team (Late st Contact Info) Description 10/19/2025 11:30 AM EDT Clinical Support [facility] [address] [place] [address] Griselda Roger RN documented as of this encounter Visit Diagnoses Diagnosis Erosion of teeth, 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 documented in this encounter Additional Health Concerns Assessment Noted Time PHQ-9 Depression Total Score: 0 09/21/19 24 9:42 AM EDT documented as of this encounter Care Teams Director Hr Communications Relationship Specialty Start Date End Date Karrie Fernandez FNP [address] [place] [address] PCP - General Family Medicine 01/12/21 documented as of this encounter
== END 2025-01-06 10:13 | disposition home or self-care (01) ==
LOC: HO.HGI 09:36
PROVIDERS: PCP Registered Nurse; Visit Provider Nurse Practitioner
DX: K59.04 Chronic idiopathic constipation (principal); K22.70 Barrett's esophagus without dysplasia; K21.9 Gastro-esophageal reflux disease without esophagitis; D18.03 Hemangioma of intra-abdominal structures
CPT/HCPCS: 99213

== ENCOUNTER → 2025-01-06 09:35 | Outpatient (BNVA) | payer OTHER, SELFPAY | PROVIDERS: PCP Registered Nurse; Visit Provider Nurse Practitioner | DX: K59.04 Chronic idiopathic constipation (principal); K22.70 Barrett's esophagus without dysplasia; K21.9 Gastro-esophageal reflux disease without esophagitis; D18.03 Hemangioma of intra-abdominal structures | CPT/HCPCS: 99212 ==